=== PATIENT | female | born 1985 | race Hispanic/Latino ===

== ENCOUNTER 2024-04-20 10:49 | Emergency (ER) | payer SELFPAY ==
[2024-04-20 11:04] VITALS: BP 122/76; PULSE 99; RESP 16; TEMP 37.4; O2SAT 99
--- NOTE | 2024-04-20 11:24 | ED.ABDPAIN ---
HPI - Abdominal Pain General Chief Complaint: Urogenital-Female Stated Complaint: Vaginal Problems Time Seen by Provider: 04/20/24 11:24 Source: patient and ostomy rn History of Present Illness HPI narrative: Patient who delivered baby 2 weeks ago in [place], recently moved to this area presents with 2 days of vaginal itching. She denies any recent injury or trauma. She had a vaginal , reports episiotomy that she was told is healing well when she went for her 2 week check. She denies any unusual vaginal discharge. Denies any vaginal bleeding. Denies any pain. Denies any fever, chills, sweats. She voices no other concerns or complaints at this time. Related Data Allergies Allergy/AdvReac Type Severity Reaction Status Date / Time No Known Allergies Allergy Verified 04/20/24 11:12 Review of Systems Review of Systems: All systems reviewed & are unremarkable except as noted in HPI and below Constitutional: Constitutional: Reports no additional constitutional complaints ENT: Reports system reviewed and no additional complaints, except as documented Cardiovascular: Cardiovascular: Reports no additional cardiovascular complaints Respiratory: Respiratory: Reports no additional respiratory complaints Gastrointestinal: Gastrointestinal: Reports no additional gastrointestinal complaints Genitourinary: Genitourinary: Denies abnormal vaginal bleeding and Reports vaginal pruritus Exam Const: General: cooperative, no acute distress, alert and awake Orientation/consciousness: oriented to person, oriented to place and oriented to time HENMT: Head: normal to inspection Resp: Effort & Inspection: normal respiratory effort and able to speak in complete sentences Auscultation: clear to auscultation bilaterally, no crackles, no rales, no rhonchi and no wheezes Cardio: Palpation: normal PMI Rate: regular rate Rhythm: regular rhythm Heart sounds: S1 normal heart sound present and S2 normal heart sound present GI: GI Palp: No abdominal tenderness, Yes Soft to palpation, No Tenderness to palpation present (GI), No Guarding due to palpation present (GI) and No Rigid due to palpation Auscultation: normal bowel sounds Neuro: General: oriented to person, oriented to place and oriented to time Cranial nerves: Yes CN's II-XII intact bilaterally Psych: Appearance: grossly normal Thought process: Normal thought process present Insight: Good insight present (Psych) Judgement: Good judgement present (Psych) Course Course Level of Care: Express Care Visit Vital Signs Vital signs: Vital Signs Temperature 99.4 F 04/20/24 11:04 Pulse Rate 99 04/20/24 11:04 Respiratory Rate 16 04/20/24 11:04 Blood Pressure 122/76 04/20/24 11:04 Pulse Oximetry 99 04/20/24 11:04 Oxygen Delivery Room Air 04/20/24 11:04 Temperature 99.4 F 04/20/24 11:04 Pulse Rate 99 04/20/24 11:04 Respiratory Rate 16 04/20/24 11:04 Blood Pressure 122/76 04/20/24 11:04 Pulse Oximetry 99 04/20/24 11:04 Oxygen Delivery Room Air 04/20/24 11:04 MDM - Abdominal Pain MDM Narrative Medical decision making narrative: Patient declines speculum exam. Normal abdominal exam. Symptoms likely from vaginal yeast infection, will treat as same. Patient advised to follow with primary care provider and tool machinist. Emergency department for new or worse symptoms. Discharge instructions reviewed with patient, as well as provided in writing per nursing staff. The instructions also include specific and strict return/GO TO THE ER as well as f/u information. All questions have been answered, and the patient deny any further questions with discharge and discharge plan. Some parts of this dictation were generated by voice recognition software and may contain typographical and/or grammatical inaccuracies. Differential Diagnosis Differential diagnosis: Likely other (Bacterial vaginosis, vaginal yeast infection, STI) Medical Records Attes
== END 2024-04-20 11:35 | disposition home or self-care (01) ==
PROVIDERS: Emergency Provider Nurse Practitioner Family
DX: O86.19 Other infection of genital tract following delivery (principal); B37.31 Acute candidiasis of vulva and vagina
CPT/HCPCS: 99203; G0463

== ENCOUNTER 2025-03-22 15:29 | Outpatient (CLI) | payer MEDICAID, SELFPAY ==
--- OUTSIDE RECORDS SUMMARY | 2025-03-22 15:33 | XMS_ITS | Encounter Summary ---
Author Organization [facility] Address [address] [place] [address] Care Team Providers Care Material Carrier Name Role Phone None, Provider Primary Care Provider Unavaila ble Encounter Details Date Type Department Care Team (Late st Contact Info) Description 03/14/2025 Orders Only [facility] [place] [address] Eyal Swenson MD [address] [facility] [address] [place] [id number] Social History Tobacco Use Types Packs/Day Years Used Date Smoking Tobacco: Never Assessed Comments Unknown Sex and Gender Information Value Date Recorded Sex Assigned at Female 03/10/2025 3:50 PM CDT Legal Sex Female 3:46 PM CDT Gender Identity Not on file Sexual Orientation Not on file documented as of this encounter Plan of Treatment Not on file documented as of this encounter Visit Diagnoses Not on filedocumented in this encounter Care Teams Material Carrier Relationship Specialty Start Date End Date None, Provider, PCP - General UNKNOWN PHYSICIAN SPECIALTY 03/10/25 documented as of this encounter
--- OUTSIDE RECORDS SUMMARY | 2025-03-22 15:33 | XMS_ITS | Clinical Summary ---
Author Organization [facility] Address [address] [place] [address] Care Team Providers Care Day Haul Youth Supervisor Name Role Phone Unavailable Primary Care Provider Unavailabl e Source Comments [facility],non-owned Affiliates and Associated Physician Practices is amultiple site organization consisting of ambulatory clinics and hospital sitesin [place], [place], [place] and [place]. This disclosure is being madepursuant to the Care Everywhere program and may not contain all information available regarding this patient. Last updated 18.[facility] Social History Tobacco Use Types Packs/Day Years Used Date Smoking Tobacco: Never Assessed Comments Unknown Sex and Gender Information Value Date Recorded Sex Assigned at Not on file Legal Sex Female 3:29 PM CDT Gender Identity Not on file Sexual Orientation Not on file Plan of Treatment Upcoming Encounters Date Type Department Care Team (Late st Contact Info) Description 04/06/2025 9:45 AM CDT Appointment [facility] [address] [place] [address] 04/06/2025 11:15 AM CDT Appointment [facility] [address] [place] [phone] Health Maintenance Due Date Last Done Comments HIV SCREENING 2001 HEPATITIS C SCREENING 07/22/2004 DTAP/TDAP/TD VACCINES (1 - Tdap) 2005 HEPATITIS B VACCINE (1 of 3 - 19+ 3-dose series) 2005 PAP SMEAR 2007 COVID-19 VACCINE ( - 2023-2 5 season) 2024 DEPRESSION SCREENING 09/22/2024 ZOSTER VACCINE (1 of 2) 2036 INFLUENZA VACCINE Completed 08/16/2024 HIB VACCINE Aged Out No longer eligi ble based on patient's age to complete this topic HPV VACCINE Aged Out No longer eligi ble based on patient's age to complete this topic MENINGOCOCCAL (Group B) VACC INE SHARED DECISION-MAKING Aged Out No longer eligibl e based on patient's age to complete this topic MENINGOCOCCAL GROUPS A/C/Y/W VACCINE Aged Out No longer eligible b ased on patient's age to complete this topic PNEUMOCOCCAL VACCINE Aged Out No long er eligible based on patient's age to complete this topic
--- OUTSIDE RECORDS SUMMARY | 2025-03-22 15:33 | XMS_ITS | Clinical Summary ---
Author Organization [facility] Address [facility] [place] [address] Care Team Providers Care Assistant Operator Name Role Phone None, Provider Primary Care Provider Unavaila ble Encounters Date Type Department Care Team Description 03/14/2025 Orders Only [facility] [address] Eyal Swenson MD 03/10/2025 3:55 PM CDT - 03/10/2025 11:59 PM CDT Hospital [facility] [place] [address] Eyal Swenson MD Discharge Disposition: Home or Self Care (Routine Discharge) 03/10/2025 Orders Only [facility] [address] Eyal Swenson MD 03/10/2025 Orders Only [facility] [address] Eyal Swenson MD 03/10/2025 Orders Only [facility] [address] Eyal Swenson MD 03/10/2025 Travel from Last 3 Months Social History Tobacco Use Types Packs/Day Years Used Date Smoking Tobacco: Never Assessed Comments Unknown Sex and Gender Information Value Date Recorded Sex Assigned at Female 03/10/2025 3:50 PM CDT Legal Sex Female 3:46 PM CDT Gender Identity Not on file Sexual Orientation Not on file Plan of Treatment Health Maintenance Due Date Last Done Comments Cervical Cancer Screening Pa p Smear (Age 30 to 64) Every 3 Years 1986 Annual Physical 1989 Hepatitis C 2004 DTaP, Tdap and Td Vaccines ( 1 - Tdap) 2005 Hepatitis B Vaccines (1 of 3 - 19+ 3-dose series) 2005 Cervical Cancer Screening Pa p with HPV Testing (Age 30 to 64) Every 5 Years 2016 Cervical Cancer Screening with HPV 2016 COVID-19 Vaccine (2023-2 5 season) 2024 HPV Vaccines Aged Out No longer eligi ble based on patient's age to complete this topic Meningococcal B Vaccine Aged Out No l onger eligible based on patient's age to complete this topic Meningococcal Vaccine Aged Out No pura sherie eligible based on patient's age to complete this topic Pneumococcal Vaccine: Pediat rics (0 to 5 Years) and At-Risk Patients (6 to 49 Years) Aged Out No longer eligible b ased on patient's age to complete this topic RSV Immunizations Under 20 Months Aged Out No longer eligible based on patient's age to complete this topic Procedures Procedure Name Priority Date/Time Associated Diagnosis Comments QUAD PANEL Routine 03/10/2025 4:22 PM CDT VARICELLA ZOSTER AB IGM Routine 03/10/2025 4:22 PM CDT Encounter for supervision of normal ([facility]) CHORIONIC GONADOTROPIN HCG QL Routine 03/10/2025 4:22 PM CDT Encounter for supervision of normal ([facility]) TEST URINE Routine 03/10/2025 4:16 PM CDT Encounter for supervision of normal ([facility]) from Last 3 Months Results * VARICELLA ZOSTER AB IGM (03/10/2025 4:22 PM CDT) VARICELLA ZOSTER, IGM EIA <=0.90 <=0.90 03/14/2025 2:34 PM CDT [facility] CLARICE LY Comment: < or = 0.90 Negative 0.91 - 1.09 Equivocal > or = 1.10 Positive Results from any one IgM assay should not be used as a sole determinant of a current or recent infection. Because an IgM test can yield false positive results and low levels of IgM antibody may persist for more than 12 months post infection, reliance on a single test result could be misleading. If an acute infection is suspected, consider obtaining a new specimen and submit for both IgG and IgM testing in two or more weeks. Test Performed by [employer], [facility], [address] [place] [address] Haja Weems M.D., Ph.D., Director of Laboratories , [facility] [id number] 03/10/2025 4:22 PM CDT us Eyal Swenson MD LABORATORY Final Resu lt [facility] [address] [place] [id number], [place] [phone] * PREG TEST SERUM (HCG QUALITATIVE) (03/10/2025 4:22 PM CDT) PREG SCREEN-SERUM POSITIVE 03/10/2025 5:30 PM CDT [facility] 03/10/2025 4:22 PM CDT Eyal Swenson MD LABORATORY Final Resu lt [facility] [address] [place] [address], [place] [phone] * TEST URINE (03/10/2025 4:16 PM CDT) URINE HCG TEST DUPLICATE ORDER 03/14/2025 1:09 PM CDT [facility] Comment: CORRECTED ON 03/14 AT 1309: PREVIOUSLY REPORTED POSITIVE VERY DILUTE URINE SPECIMENS MAY NOT CONTAIN CARE GIVER LEVELS OF HCG. IF IS STILL SUSPECTED, A SERUM HCG TEST IS RECOMMENDED. SPECIFIC GRAVITY (U) DUPLICATE ORDER 03/14/2025 1:09 PM CDT [facility] URINE SPECIMEN FROM URETHRA / Unknown 03/10/2025 4:16 PM CDT us Eyal Swenson MD URINE ORDERABLES Edited Re sult - Final [facility] [address] [place] [address], [place] [phone] from Last 3 Months Care Teams Assistant Operator Relationship Specialty Start Date End Date None, Provider, PCP - General UNKNOWN PHYSICIAN SPECIALTY 03/10/25
[2025-03-22 16:21] LABS: Add Urine Microscopic? NO; Appearance Urine Clear (Clear); Glucose Urine UA 3+ mg/dL (Negative); Leukocyte Esterase Ur Negative LEU/UL (Negative); Nitrate Urine Negative (Negative); Specific Grav Ur 1.036 (1.001-1.035)
[2025-03-22 16:28] LABS: Hematocrit 39.4 % (37.0-47.0); Hemoglobin 13.1 g/dL (12.0-15.0); Mean Corpuscular HGB Conc 33.2 g/dl (32-36); Mean Corpuscular Hemoglobin 27.7 pg (26-34); Mean Corpuscular Volume 83.3 fl (80-100); Platelet Count Result 250 k/mm3 (150-375); Red Blood Count 4.73 M/mm3 (4.2-5.4); White Blood Count 7.2 K/mm3 (4.5-10.0)
[2025-03-22 18:27] LABS: Alanine Aminotransferase 16 U/L (6-35); Albumin Level 4.0 g/dL (3.5-5.1); Alkaline Phosphatase 60 U/L (38-126); Anion Gap 10 mmol/L (4-12); Aspartate Amino Transferase 23 U/L (14-36); Bilirubin,Total 0.8 mg/dL (0.2-1.3); Blood Urea Nitrogen 10 mg/dL (7-17); Calcium 9.0 mg/dL (8.4-10.2); Carbon Dioxide 18 mmol/L (22-30); Chloride 107 mmol/L (98-107); Estimated Glomerular Filt Rate > 60; Glucose 130 mg/dL (65-110); Potassium 3.8 mmol/L (3.4-5.0); Sodium 135 mmol/L (137-145); Total Protein 7.0 g/dL (6.3-8.2)
[2025-03-22 18:59] LABS: Hepatitis B Surface Antigen Negative (Negative)
[2025-03-22 19:08] LABS: HIV 1/2 Ab P24 Ag Result Negative (Negative)
[2025-03-22 20:10] LABS: Hemoglobin A1C. 8.8 % (<5.7)
[2025-03-22 20:19] LABS: Syphilis IgG/IgM Antibody Non-Reactive (Nonreactive)
[2025-03-22 20:22] LABS: Thyroid Stimulating Hormone Reflex 1.540 uIU/mL (0.465-4.68)
[2025-03-23 21:43] LABS: Hematocrit 40.0 % (35.0-45.0); Hemoglobin 13.2 g/dL (11.7-15.5); MCH 28.6 pg (27.0-33.0); MCV 86.8 fL (80.0-100.0); RDW 13.3 % (11.0-15.0)
== END 2025-03-22 15:30 | disposition home or self-care (01) ==
LOC: ANHLAB 15:29
PROVIDERS: PCP Obstetrics & Gynecology; Visit Provider Obstetrics & Gynecology
DX: Z34.90 Encounter for supervision of normal pregnancy, unspecified, unspecified trimester (principal); Z3A.00 Weeks of gestation of pregnancy not specified
CPT/HCPCS: 36415; 80053; 81003; 83021; 83036; 84443; 85027; 86593; 86703; 86762; 86787; 86803; 86850; 86900; 86901; 87086; 87340; G0432

== ENCOUNTER 2025-05-10 10:31 | Outpatient (CLI) | payer OTHER, SELFPAY ==
--- OUTSIDE RECORDS SUMMARY | 2025-05-10 11:02 | XMS_ITS | Clinical Summary ---
Author Organization [facility] Address [facility] [place] [address] Care Team Providers Care Platform Operations Director Name Role Phone None, Provider Primary Care Provider Unavaila ble Encounters Date Type Department Care Team Description 03/14/2025 Orders Only [facility] [place] [address] Eyal Swenson MD 03/10/2025 3:55 PM CDT - 03/10/2025 11:59 PM CDT [facility] [place] [address] Eyal Swenson MD Discharge Disposition: Home or Self Care (Routine Discharge) 03/10/2025 Orders Only [facility] [address] Eyal Swenson MD 03/10/2025 Orders Only [facility] [address] Eyal Swenson MD 03/10/2025 Orders Only [facility] [address] Eyal Swenson MD 03/10/2025 Travel from Last [...] of 3 - 19+ 3-dose series) 2005 HPV Vaccines (1 - 3-dose SCD M series) 2013 Cervical Cancer Screening Pa p with HPV Testing (Age 30 to 64) Every 5 Years 2016 Cervical Cancer Screening with HPV 2016 COVID-19 Vaccine (2023-2 5 season) 2024 Meningococcal B Vaccine Aged Out No l [...] PM CDT Encounter for supervision of normal ([facility]) CHORIONIC GONADOTROPIN HCG QL Routine 03/10/2025 4:22 PM CDT Encounter for supervision of normal ([facility]) TEST URINE Routine 03/10/2025 4:16 PM CDT Encounter for supervision of normal ([facility]) from Last 3 Months Results * VARICELLA ZOSTER AB IGM (03/10/2025 4:22 PM CDT) VARICELLA ZOSTER, IGM EIA <=0.90 <=0.90 03/14/2025 2:34 PM CDT [facility] CLARICE RAMIREZ Comment: < or = 0.90 Negative 0.91 [...] two or more weeks. Test Performed by Amrit Perez, [employer], [address] [place] Haja Weems M.D., Ph.D., Director of Laboratories , [place] [id number] 03/10/2025 4:22 PM CDT Eyal Swenson MD LABORATORY Final Resu lt [facility] [address] [place] [address], * (ABNORMAL) QUAD PANEL (03/10/2025 4:22 PM CDT) DATE OF 1982 03/29/2025 8:40 AM CDT [facility] COLLECTION DATE 03/10/2025 2:39 PM CDT [facility] WEIGHT 162 03/29/2025 8:40 AM CDT [facility] ESD DATE OF DELIVERY 08/18/2025 03/29/2025 8:40 AM CDT [facility] RONEN DETERMINED BY L 025 8:40 AM CDT [facility] ETHNICITY H 03/29/2025 8:40 AM CDT [facility] NUMBER OF FETUSES 1 025 8:40 AM CDT [facility] INSULIN DEPENDENT DIABETIC Y 03/29/2025 8:40 AM CDT [facility] REPEAT SPECIMEN N 8:40 AM CDT [facility] HS NEURAL TUBE DEFECT N 03/29/2025 8:40 AM CDT [facility] BRIEF HISTORY NG 03/29/2025 8:40 AM CDT [facility] HISTORY OF DOWN SYNDROME N 03/29/2025 8:40 AM CDT [facility] DONOR AGE OR N 03/29/20 25 8:40 AM CDT [facility] DONOR EGG N 03/29/2025 8:40 AM CDT [facility] CIGARETTE SMOKER N 03/29/20 25 8:40 AM CDT [facility] SERGEY INTERP REPORT 03/21/2025 9:45 PM CDT [facility]-PRICILA GUERRERO Comment: Screen positive for DS # Trisomy 18. Screen negative for open NTD. RISK FOR NTD (OSB) UNAVAILABLE 03/21/2025 9:45 PM CDT [facility] WHIT-PARTHATI LLY AGE RISK DOWN SYNDROME 1:129 03/21/2025 9:45 PM CDT [facility] SHERMAN-PARTHATI LLY SERGEY DOWN SYNDROME RISK >1:10(H) <1:270 03/21/2025 9:45 PM CDT [facility] SHERMAN-CHANTI LLY RISK FOR TRISOMY 18 1:98(H) <1:100 03/21/2025 9:45 PM CDT [facility]ERMAN-PARTHATI LLY AFP SERUM 5.5 ng/mL 03/21/2025 9:45 PM CDT [facility]ERMAN-PARTHATI LLY AFP MOM 0.07 03/21/2025 9:45 PM CDT [facility] SHERMAN-PARTHATI LLY Comment: Reference Range: <2.50 IDD <1.90 TWINS <4.00 TWINS IDD <3.50 TRIPLETS <4.50 ESTRIOL FREE 0.23 ng/mL 03/21/2025 9:45 PM CDT [facility] SHERMAN-CHANTI LLY ESTRIOL MOM 0.08 03/21/2025 9:45 PM CDT [facility] SHERMAN-CHANTI LLY HCG SERUM 62.6 IU/mL 03/21/2025 9:45 PM CDT [facility] SHERMAN-CHANTI LLY HCG MOM 3.82 03/21/2025 9:45 PM CDT [facility] SHERMAN-CHANTI LLY Inhibin A 203 pg/mL 03/21/2025 9:45 PM CDT [facility] SHERMAN-CHANTI LLY INHIBIN A MOM 0.93 03/21/2025 9:45 PM CDT [facility] SHERMAN-CHANTI LLY Comment: RISKS FOR NTDs ARE ONLY CALCULATED FOR GESTATIONAL WEEKS 15.0 to 21.9. THE MoM VALUE IS ALWAYS THE MORE APPROPRIATE NUMBER TO USE WHEN DETERMINING NORMALCY OR ELEVATIONS IN THE MSAFP TEST. The patient is considered to be at increased risk for having a child with Down syndrome. The patient is also at increased risk for having a child with Trisomy 18. Clinical follow-up, including high resolution ultrasound, genetic counseling and consideration of amniocentesis, is recommended. While women 35 years or older at the time of delivery have the highest risk of having a child with Down syndrome, current [place] [employer] guidelines (Heel Seat Flap Stapler 2007 v109 [phone]) recommend that maternal age alone no longer be used as a cut-off to determine who is offered screening versus who is offered invasive testing. Genetic counseling may be considered. This is a screening test, not a diagnostic test. This risk assessment is based on demographic data provided by the ordering physician. Please notify the laboratory promptly if any data are incorrect. It has been observed that patients who smoke cigarettes during may have a slightly increased risk of having a false positive SERGEY screen for Down Syndrome or trisomy 18. It has been observed that patients whose is the result of IVF may have a slightly increased risk of having a false positive SERGEY screen for Down syndrome or trisomy 18. If you have questions concerning this report: For Clinical Consultation call [phone] ([phone]) For Technical/Recalculations call , ext. [phone]; FAX [phone] Interpretive Cutoffs Screen Positive for Open NTD: > or = 2.50 adjusted MOM > or = 1.90 adjusted MOM for insulin- dependent Diabetics > or = 4.00 adjusted MOM for twins > or = 3.50 adjusted MOM for twins insulin- dependent diabetics > or = 4.50 adjusted MOM for triplets Screen Positive for Down Syndrome: SERGEY Down Syndrome Risk that equals or exceeds 1 in 270 Screen Positive for Trisomy 18: SERGEY Trisomy 18 Risk that equals or exceeds 1 in 100 For additional information, please refer to http://education.Enlighted/faq/FAQ97 (This link is being provided for informational/educational purposes only.) CALCULATED GESTATIONAL AGE 22.6 03/21/2025 9:45 PM CDT [facility] LYLA GUERRERO RESULT OF IVF N 03/21/2025 9:45 PM CDT [facility] LLYA GUERRERO Comment: Test performed by [facility] [place] [id number] Auto Headlight Mechanic: Maureen Ontiveros MD,PHD,PHUC Test Reported by THYME [place], [employer] [place], [address] [place], [place] Haja Weems M.D., Ph.D., Director of Laboratories , [facility] [id number] 03/10/2025 4:22 PM CDT Eyal Swenson MD LABORATORY Final Resu lt [facility] [address] [place] [address], [place] [facility] [address] [place] [address], [place] [phone] * PREG TEST SERUM (HCG QUALITATIVE) (03/10/2025 4:22 PM CDT) PREG SCREEN-SERUM POSITIVE 03/10/2025 5:30 PM CDT [facility] 03/10/2025 4:22 PM CDT Eyal Swenson MD LABORATORY Final Resu lt [facility] [address] [place] [address], [place] [phone] * TEST URINE (03/10/2025 4:16 PM CDT) URINE HCG TEST DUPLICATE ORDER 03/14/2025 1:09 PM CDT [facility] Comment: CORRECTED ON 03/14 AT 1309: PREVIOUSLY REPORTED POSITIVE VERY DILUTE URINE SPECIMENS MAY NOT CONTAIN PROVIDER RELATIONS MANAGER LEVELS OF HCG. IF IS STILL SUSPECTED, A SERUM HCG TEST IS RECOMMENDED. SPECIFIC GRAVITY (U) DUPLICATE ORDER 03/14/2025 1:09 PM CDT [facility] URINE SPECIMEN FROM URETHRA / Unknown 03/10/2025 4:16 PM CDT Eyal Swenson MD URINE ORDERABLES Edited Re sult - Final [facility] [address] [place] [address], [place] [phone] from Last 3 Months Insurance MEDICAID Care Teams Platform Operations Director Relationship Specialty Start Date End Date None, Provider, PCP - General UNKNOWN PHYSICIAN SPECIALTY 03/10/25
--- OUTSIDE RECORDS SUMMARY | 2025-05-10 11:02 | XMS_ITS | Encounter Summary ---
Author Organization [facility] Address [facility] [place] [address] Care Team Providers Care Motorcycle Subassembler Name Role Phone None, Provider Primary Care Provider Unavaila ble Encounter Details Date Type Department Care Team (Late st Contact Info) Description 03/14/2025 Orders Only [facility] [place] [address] Eyal Swenson MD Social History Tobacco Use Types Packs/Day Years [...] on filedocumented in this encounter Care Teams Motorcycle Subassembler Relationship Specialty Start Date End Date None, Provider, PCP - General UNKNOWN PHYSICIAN SPECIALTY 03/10/25 documented as of this encounter
--- OUTSIDE RECORDS SUMMARY | 2025-05-10 11:02 | XMS_ITS | Clinical Summary ---
Author Organization [facility] Address [address] [place] [address] Care Team Providers Care Chief Operations Officer Name Role Phone Unavailable Primary Care Provider Unavailabl e Source Comments [facility],non-owned Affiliates and Associated Physician Practices is amultiple site organization consisting of ambulatory clinics and hospital sitesin [place], [place], [place] and [place]. This disclosure is being madepursuant to the Care Everywhere program and may not contain all information available regarding this patient. Last updated 18.[facility] [employer] Allergies No known active allergies Medications * Be aware that medications may not be up to date on this document. Alwaysverify current medications with the patient. Vit-DSS-Fe Fum-FA ( vitamin with iron) tabletIndicati ons: Take 1 (one) tablet by mouth once daily Reasons: Active insulin glargine (Lantus/Semgle e) 100 units/mL penIndications :Gestational Diabetes Inject 10 (ten) Units subcutaneously twice daily, before breakfast & at bedtime. Inject 10 units AM and 10 units HS Reasons: Diabetes During Active aspirin EC (Ecotrin) 81 MG tablet Take 1 (one) tablet by mouth once daily Active Active Problems Problem Noted Date Diagnosed Date Type 2 diabetes mellitus aff ecting in second trimester, antepartum 04/06/2025 Advanced maternal age in multigravida, second tr imester 04/06/2025 Uncertain dates, antepartum, second trimester Estimated Date of Delivery Comme nts Yes 09/21/2025 Based on Ultraso und Encounters Date Type Department Care Team Description 04/27/2025 2:30 PM CDT - 04/27/2025 11:59 PM CDT Hospital Encounter [facility] [address] [place] [address] Kaden Mathews MD Discharge Disposition: Home or Self Care 04/06/2025 9:57 AM CDT - 04/06/2025 11:59 PM CDT Hospital Encounter [facility] [address] [place] [phone] Vannessa Chapin MD Discharge Disposition: Home or Self Care 04/06/2025 9:45 AM CDT - 04/06/2025 9:56 AM CDT Hospital Encounter [facility] [address] [place] [phone] Vannessa Chapin MD Discharge Disposition: Home or Self Care 03/30/2025 Telephone [facility] [address] [place] [address] [phone] Shivani Gutierrez RN Question (Damian from Dr. Sandoval's office called to see if we could draw NIPT on patient at her appt next week on 04/06 due to abnormal QUAD screen on AMA patient using wrong dates. ) from Last 3 Months Family History Medical History Relation Name Comments Diabetes - Type 2 Mother Relation Name Status Comments Maternal Grandfather Maternal Grandmother Mother Paternal Grandfather Paternal Grandmother Social History Tobacco Use Types Packs/Day Years Used Date Smoking Tobacco: Never Smokeless Tobacco: Never Tobacco Cessation:Counseling Given: Not Answered Alcohol Use Standard Drinks/Week Comments Not Currently 0 (1 standard drink = 0.6 oz pur e alcohol) Estimated Date of Delivery Comme nts Yes 09/21/2025 Based on Ultraso und Sex and Gender Information Value Date Recorded Sex Assigned at Not on file Legal Sex Female 3:29 PM CDT Gender Identity Not on file Sexual Orientation Not on file Last Filed Vital Signs Vital Sign Reading Time Taken Comments Blood Pressure 102/65 04/27/2025 2:54 PM CDT Pulse 78 04/27/2025 2:54 PM CDT Temperature - - Respiratory Rate - - Oxygen Saturation - - Inhaled Oxygen Concentration - - Weight 76.7 kg (169 lb) 04/27/2025 2:54 PM CDT Height 165.1 cm (5' 5) 04/27/2025 2:54 PM CDT Body Mass Index 28.12 04/27/2025 2:54 PM CDT Plan of Treatment Upcoming Encounters Date Type Department Care Team (Late st Contact Info) Description 05/25/2025 1:45 PM CDT Appointment [facility] [address] [place], [place] [id number] Health Maintenance Due Date Last Done Comments HIV SCREENING 2001 HEPATITIS C SCREENING 07/22/2004 DTAP/TDAP/TD VACCINES (1 - Tdap) 2005 HEPATITIS B VACCINE (1 of 3 - 19+ 3-dose series) 2005 PAP SMEAR 2007 HPV VACCINE (1 - 3-dose SCDM series) 2013 COVID-19 VACCINE (1 - 2023-2 5 season) 2024 DEPRESSION SCREENING 09/22/2024 INFLUENZA VACCINE (#1) 2025 08/16/2024 OB-TDAP CURRENT 06/22/20252023, 10/24/2023 Respiratory Syncytial Virus (RSV) Vaccine Pt: or over 60 yrs (1 - Risk 1-dose series) 2025 ZOSTER VACCINE (1 of 2) 2036 HIB VACCINE Aged Out No longer eligi ble based on patient's age to complete this topic MENINGOCOCCAL (Group B) VACCINE SHARED DECISION-MAKING Aged Out No longer eligible based on patient's age to complete this topic MENINGOCOCCAL GROUPS A/C/Y/W VACCINE Aged Out No longer eligible b ased on patient's age to complete this topic PNEUMOCOCCAL VACCINE Aged Out No long er eligible based on patient's age to complete this topic Procedures Procedure Name Priority Date/Time Associated Diagnosis Comments SONOGRAM - COMPLETE Routine 04/27/2025 3 :46 PM CDT Pre-existing type 2 diabetes mellitus during in second trimester (HCC) Encounter for anatomic survey (HCC) Multigravida of advanced maternal age in second trimester (HCC) Obesity affecting in second trimester, unspecified obesity type (HCC) SONOGRAM - COMPLETE Routine 04/06/2025 1 0:39 AM CDT Pre-existing type 2 diabetes mellitus during in second trimester ([facility]) Encounter for anatomic survey ([facility]) Multigravida of advanced maternal age in second trimester ([facility]) from Last 3 Months Results * Sonogram - Complete (04/27/2025 3:46 PM CDT) Only the most recent of2 resultswithin the time period is included. Linked Results Indication ======== screening for uncertain dates, unknown LMP Pre-existing type 2 diabetes mellitus, in Advanced maternal age (AMA), multigravida History ====== OB History 2. Para 1 [id number] 1. live 2023. Gest. age 37 w + 0 d. Weight 2,722 g. Sex of child: male. Details: Vaginal delivery Maternal Assessment Physical Exam Height 165 cm, 5 ft 5 in. Weight 77 kg, 169 lb. Initial weight 73 kg, 162 lb. BMI 28.12 kg/m . Initial BMI 26.96 kg/m . Weight gain 3 kg, 7 lb Method ====== Transabdominal and transvaginal ultrasound examination. View: Suboptimal view: limited by activity ========= Sanders . Number of fetuses: 1 Dating ====== Date Details Gest. age RONEN Stated RONEN 19 w + 0 d 09/21/2025 U/S 04/27/2025 based upon AC, BPD, Femur, HC 19 w + 1 d 09/20/2025 Assigned dating based on ultrasound (AC, BPD, Femur, HC), selected on 04/06/2025 19 w + 0 d 09/21/2025 General Evaluation Cardiac activity present. FHR 140 bpm. Presentation: variable Placenta: Placental site: right lateral; posterior. No previa seen Umbilical cord: Cord vessels: 3 vessel cord. Insertion site: normal insertion Amniotic fluid: Amount of AF: normal. MVP 5.9 cm Biometry BPD 42.0 mm 18w 5d 38% Hadlock HC 157.6 mm 18w 5d 26% Hadlock Cerebellum tr 18.9 mm 46% [place] Nuchal fold 4.0 mm AC 146.1 mm 19w 6d 75% Hadlock Femur 29.3 mm 19w 0d 44% Hadlock Humerus 28.0 mm 19w 0d 50% Cher HC / AC 1.08 -/- 5% Hadlock Weight Calculation: EFW 290 g 68% Hadlock EFW (lb,oz) 0 lb 10 oz EFW by Hadlock ([id number]-[id number]-FL) Head / Face / Neck Biometry: CM 3.0 mm 5% Nicolaides appropriate Growth Overview Exam date GA BPD (mm) HC (mm) AC (mm) FL (mm) HL (mm) EFW (g) 04/06/2025 16w 0d 33.1 60% 120 33% 100 53% 19.2 33% 18.7 30% 138 34% 04/27/2025 19w 0d 42 38% 157.6 26% 146.1 75% 29.3 44% 28 50% 290 68% Anatomy The following structures appear normal: Head / Neck Cranium. Lateral ventricles. Choroid plexus. Midline falx. Cavum septi pellucidi. Cerebellum. Cisterna magna. Thalami. Nuchal fold. Face Profile. Nasal bone. Orbits. Heart / Thorax Situs. Aortic arch view. Bicaval view. Abdomen Cord insertion. Stomach. Kidneys. Bladder. Bowel. Genitals. Spine Cervical spine. Thoracic spine. Lumbar spine. Sacral spine. Extremities / Skeleton Arms. Hands. Legs. Feet. The following structures could not be adequately visualized: Face Lips. Nose. Heart / Thorax 4-chamber view. RVOT view. LVOT view. 3-vessel view. 9-czetkk-oexhyoi view. Ductal arch view. Great vessels. Right lung. Left lung. Diaphragm. sex: male. Maternal Structures Cervix reassuring Approach - Transvaginal: Cervical length 5.08 cm Funneling absent Right Ovary Normal Left Ovary Normal Impression ========= Single live intrauterine at 19w 0d in variable presentation The RONEN is 09/21/2025 Fetus measures 19w 1d which is appropriate for established gestational age (EFW 68%, AC 75%) The amniotic fluid volume appears normal Transvaginal cervical length appears reassuring measuring 5.08 cm No major malformations or aneuploidy markers were seen within the limitations of ultrasound. However, the anatomic survey is incomplete. Comment ======== ultrasound alone cannot detect all structural, genetic, or functional , placental, or maternal abnormalities Follow-up ======== Follow up ultrasound in 5 weeks for growth and to complete anatomic survey Coding ====== Diagnoses O24.112: Pre-existing type 2 diabetes mellitus, in Z36.87: Encounter for screening for uncertain dates Procedures 67602: US Preg Uterus Detailed 04053: US Preg Uterus Transvaginal [facility] [employer] PACS Anatomical Region Laterality Modality Other 04/27/2025 3:46 PM CDT Chance Cardenas MD [facility] ORDERABLES Edited Result - Final from Last 3 Months Insurance [address] [place] [id number] MEDICAID [employer] [place]
[2025-05-10 11:54] LABS: Hematocrit 39.1 % (37.0-47.0); Hemoglobin 12.9 g/dL (12.0-15.0); Mean Corpuscular HGB Conc 33.0 g/dl (32-36); Mean Corpuscular Hemoglobin 28.3 pg (26-34); Mean Corpuscular Volume 85.7 fl (80-100); Platelet Count Result 233 k/mm3 (150-375); Red Blood Count 4.56 M/mm3 (4.2-5.4); White Blood Count 6.5 K/mm3 (4.5-10.0)
[2025-05-10 12:00] LABS: Hemoglobin A1C 7.0 % (<5.7)
[2025-05-10 12:13] LABS: Add Urine Microscopic? YES; Alanine Aminotransferase 15 U/L (6-35); Albumin Level 3.9 g/dL (3.5-5.1); Alkaline Phosphatase 60 U/L (38-126); Anion Gap 7 mmol/L (4-12); Appearance Urine Clear (Clear); Aspartate Amino Transferase 21 U/L (14-36); Bilirubin,Total 0.7 mg/dL (0.2-1.3); Blood Urea Nitrogen 7 mg/dL (7-17); Calcium 8.7 mg/dL (8.4-10.2); Carbon Dioxide 22 mmol/L (22-30); Chloride 106 mmol/L (98-107); Estimated Glomerular Filt Rate > 60; Glucose 111 mg/dL (65-110); Glucose Urine UA Trace mg/dL (Negative); Leukocyte Esterase Ur Trace LEU/UL (Negative); Nitrate Urine Negative (Negative); Non Pathogenic Casts 0-2; Potassium 4.0 mmol/L (3.4-5.0); Sodium 135 mmol/L (137-145); Specific Grav Ur 1.026 (1.001-1.035); Total Protein 7.0 g/dL (6.3-8.2)
[2025-05-10 12:49] LABS: Thyroid Stimulating Hormone 2.220 uIU/mL (0.465-4.680)
[2025-05-10 12:50] LABS: HIV 1/2 Ab P24 Ag Result Negative (Negative)
[2025-05-10 13:44] LABS: Syphilis IgG/IgM Antibody Non-Reactive (Nonreactive)
[2025-05-10 21:37] LABS: Hepatitis B Surface Antigen Negative (Negative)
[2025-05-11 14:08] LABS: Varicella-Zoster Ab, IgG Non Reactive (Non Reactive); Varicella-Zoster Ab, IgM <0.91 index (0.00-0.90)
== END 2025-05-10 10:32 | disposition home or self-care (01) ==
PROVIDERS: Visit Provider Obstetrics & Gynecology
DX: Z34.90 Encounter for supervision of normal pregnancy, unspecified, unspecified trimester (principal)
CPT/HCPCS: 36415; 80053; 81001; 83036; 84443; 85027; 86593; 86703; 86762; 86787; 86803; 86850; 86900; 86901; 87340; G0432

== ENCOUNTER 2025-07-27 13:43 | Outpatient (RCR) | payer OTHER, SELFPAY ==
[2025-07-27 14:59] VITALS: BP 102/56; PULSE 89
== END 2025-09-10 11:36 | disposition other institution (70) ==
LOC: ANHOBOP 13:43
PROVIDERS: Visit Provider Obstetrics & Gynecology
DX: O24.419 Gestational diabetes mellitus in pregnancy, unspecified control (principal); Z3A.32 32 weeks gestation of pregnancy
CPT/HCPCS: 59025

== ENCOUNTER 2025-09-07 16:55 | Inpatient (IN) | payer OTHER, SELFPAY ==
--- OUTSIDE RECORDS SUMMARY | 2025-09-06 14:30 | XMS_ITS | Encounter Summary ---
Author Organization [facility] Address [facility] [place] [address] Care Team Providers Care Male Impersonator Name Role Phone Unavailable Primary Care Provider Unavailabl e Reason for Referral * (Routine) - Open Specialty Diagnoses / Procedures Referred By Fred t Referred To Contact Diagnoses Type 2 diabetes mellitus affecting in second trimester, antepartum (HCC) Advanced maternal age in multigravida, second trimester (HCC) Obesity affecting in second trimester, unspecified obesity type (HCC) Encounter for other screening follow-up (HCC) Procedures Non-Stress Test Chance Infante MD [address] [facility] [address] [place] [id number] Phone: tel: fax: Referral ID Status Reason Start Date Expiration Date Visits Re quested Visits Authorized [id number] Open 07/18/2025 07/18/2026 5 5 VAN CDL TRUCK DRIVER * (Routine) - Open Specialty Diagnoses / Procedures Referred By Fred bean Referred To Contact Diagnoses Type 2 diabetes mellitus affecting in second trimester, antepartum (HCC) Advanced maternal age in multigravida, second trimester (HCC) Obesity affecting in second trimester, unspecified obesity type (HCC) Encounter for ultrasound to assess growth (HCC) Procedures Sonogram - Complete Chance Infante MD [address] [facility] [address] [address] Phone: tel: fax: Referral ID Status Reason Start Date Expiration Date Visits Re quested Visits Authorized [id number] Open 07/12/2025 07/12/2026 1 1 VAN CDL TRUCK DRIVER Reason for Visit * Reason Comments Ultrasound Biophysical Profile Non-stress Test * (Routine) - Open Specialty Diagnoses / Procedures Referred By Contac t Referred To Contact Diagnoses Type 2 diabetes mellitus affecting in second trimester, antepartum (HCC) Advanced maternal age in multigravida, second trimester (HCC) Obesity affecting in second trimester, unspecified obesity type (HCC) Encounter for other screening follow-up (HCC) Procedures Non-Stress Test Chance Infante MD [address] [facility] [address] [facility] [address] [place] [address] Phone: tel: fax: Referral ID Status Reason Start Date Expiration Date Visits Re quested Visits Authorized [id number] Open 07/18/2025 07/18/2026 5 5 Encounter Details Date Type Department Care Team (Late st Contact Info) Description 09/06/2025 2:30 PM OTR VAN CDL TRUCK DRIVER - 09/06/2025 11:59 PM OTR VAN CDL TRUCK DRIVER Hospital Encounter [facility] Maternal & Care [address] [place] [address] Jai Schuler MD [address] [facility] [address] [place] [address] Discharge Disposition: Home or Self Care Social History Tobacco Use Types Packs/Day Years Used Date Smoking Tobacco: Never Smokeless Tobacco: Never Alcohol Use Standard Drinks/Week Comments Not Currently 0 (1 standard drink = 0.6 oz pur e alcohol) Estimated Date of Delivery Comme nts Yes 09/21/2025 Based on Ultraso und Sex and Gender Information Value Date Recorded Sex Assigned at Not on file Legal Sex Female 3:29 PM CDT Gender Identity Not on file Sexual Orientation Not on file documented as of this encounter Last Filed Vital Signs Vital Sign Reading Time Taken Comments Blood Pressure 104/70 09/06/2025 3:04 PM OTR VAN CDL TRUCK DRIVER Pulse 90 09/06/2025 3:04 PM OTR VAN CDL TRUCK DRIVER Temperature - - Respiratory Rate - - Oxygen Saturation - - Inhaled Oxygen Concentration - - Weight - - Height - - Body Mass Index - - documented in this encounter Medications at Time of Discharge aspirin EC (Ecotrin) 81 MG tablet Take 1 (one) tablet by mouth once daily blood glucose (OneTouch Verio) test stripIndications :Type 2 diabetes mellitus affecting in second trimester, antepartum ([facility]) Use 1 (one) strip 4 times daily 100 strip 5 06/22/2025 Continuous Glucose Sensor (Dexcom G7 Sensor) MISCIndications: Type 2 diabetes mellitus affecting in second trimester, antepartum ([facility]) Use 1 Each Continuous for 10 days 3 Each 3 08/10/2025 6 Insulin Pen Needle 32G X 4 MM MISCIndications: Type 2 diabetes mellitus affecting in second trimester, antepartum ([facility]) Use 1 Each 5 times daily 100 Each 5 08/10/2025 Lancets (ONETOUCH DELICA PLUS 33G EXTRA FINE LANCET)Indicatio ns:Type 2 diabetes mellitus affecting in second trimester, antepartum ([facility]) Use 1 Each 4 times daily To check blood glucose 4 times daily during 100 Each 5 06/22/2025 Vit-DSS-Fe Fum-FA ( vitamin with iron) tabletIndication s: Take 1 (one) tablet by mouth once daily Reasons: insulin glargine (Lantus/Semglee) 100 units/mL penIndications:T ype 2 diabetes mellitus affecting in second trimester, antepartum ([facility]) Prime needle with 2 units waste, then inject 32 units every morning and 68 units every night. Increase dose as directed due to increasing insulin requirements during . Max total daily dose of 150 units. 45 mL 3 08/30/2025 5 insulin lispro (HumaLOG;ADMelog ) 100 UNIT/ML penIndications:T ype 2 diabetes mellitus affecting in second trimester, antepartum ([facility]) Prime needle with 2 units waste, then inject 4 units with breakfast, 6 units with lunch, and 8 units with dinner. Increase doses as directed due to increasing insulin requirements during . Max total daily dose of 50 units. 15 mL 2 08/30/2025 5 documented as of this encounter Progress Notes * Shivani Gutierrez RN - 09/06/2025 3:06 PM CST Name: Joana Jiménez Date of : 1985 Today's Date: 09/06/2025 37w6d NST RESULTS (ROLAND) OBJECTIVE FINDINGS , Pulse: 90, , BP: 104/70 NST Indication(s): Gestational diabetes Uterine Irritability: Yes Contractions: Irregular Frequency: x2 Duration (sec) Range: 50-100 Perceived Intensity: Mild OBJECTIVE FINDINGS Movement: Present Monitoring Mode: External Baseline: 130 BPM Variability: Moderate Decelerations: None Accelerations: Yes OTHER INFORMATION Patient here with daughter and son for BPP and NST today. Patient reports positive movement. Denies leakage of fluid, vaginal bleeding. Reports occasional cramping and contractions. Denies headaches, RUQ pain and blurred vision. Patient has no concerns. 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 Shivani Gutierrez RN VAN CDL TRUCK DRIVER documented in this encounter Plan of Treatment Upcoming Encounters Date Type Department Care Team (Late st Contact Info) Description 09/09/2025 1:45 PM OTR VAN CDL TRUCK DRIVER Hospital Encounter [facility] [address] [place] [phone] Elizabeth Abarca MD [facility] [address] 09/12/2025 1:00 PM OTR VAN CDL TRUCK DRIVER Hospital Encounter [facility] [address] [place] [address] 09/16/2025 1:45 PM OTR VAN CDL TRUCK DRIVER Hospital Encounter [facility] [address] [place] [address] 09/19/2025 1:00 PM OTR VAN CDL TRUCK DRIVER Hospital Encounter [facility] [address] [place] [phone] Scheduled Orders Name Type Priority Associated Diagnoses Orde r Schedule Non-Stress Test MATRNL MED Routine complicated by pre-existing type 2 diabetes in third trimester (HCC) Advanced maternal age in multigravida, third trimester (HCC) Encounter for other screening follow-up ([facility]) 1 Occurrences starting 09/06/2025 until 09/06/2025 documented as of this encounter Procedures Procedure Name Priority Date/Time Associated Diagnosis Comments SONOGRAM - COMPLETE Routine 09/06/2025 2 :50 PM OTR VAN CDL TRUCK DRIVER complicated by pre-existing type 2 diabetes in third trimester (HCC) Advanced maternal age in multigravida, third trimester ([facility]) Encounter for ultrasound to assess growth ([facility]) documented in this encounter Results * Sonogram - Complete (09/06/2025 2:50 PM OTR VAN CDL TRUCK DRIVER) Linked Results Indication ======== Supervision of high risk Pre-existing type 2 diabetes mellitus, in Advanced maternal age (AMA), multigravida Macrosomia / large for dates Short interval History ====== OB History 2. Para 1 [id number] 1. live 2023. Gest. age 37 w + 0 d. Weight 2,722 g. Sex of child: male. Details: Lab Tests Test Date Result NIPT Drawn today Maternal Assessment Physical Exam Height 165 cm, 5 ft 5 in. Initial weight 73 kg, 162 lb. Initial BMI 26.96 kg/m Method ====== Transabdominal ultrasound examination. View: Sufficient ========= Limited by position and late gestational age. Number of fetuses: 1 Dating ====== Date Details Gest. age RONEN Stated RONEN 37 w + 6 d 09/21/2025 Assigned dating based on ultrasound (AC, BPD, Femur, HC), selected on 04/06/2025 37 w + 6 d 09/21/2025 General Evaluation Cardiac activity present. FHR 132 bpm. Presentation: cephalic Placenta: Placental site: anterior Amniotic Fluid Assessment ==== Amount of AF: normal MVP 6.4 cm. CORI 22.3 cm. Q1 4.1 cm, Q2 6.1 cm, Q3 5.6 cm, Q4 6.4 cm Biophysical Profile 2: breathing movements 2: Gross body movements 2: tone 2: Amniotic fluid volume NST: reactive 07/01 Biophysical profile score Non Stress Test NST interpretation: reactive. Baseline FHR 130 bpm. Baseline variability: moderate. Accelerations: present. Decelerations: absent. Uterine activity: absent. Acoustic stimulation: no Biometry BPD 93.4 mm 38w 0d 76% Hadlock HC 337.3 mm 38w 5d 49% Hadlock AC 376.5 mm 41w 4d >99% Hadlock Femur 77.7 mm 39w 5d 90% Hadlock HC / AC 0.90 Weight Calculation: EFW 4,065 g 98% Hadlock EFW (lb,oz) 8 lb 15 oz EFW by Hadlock (VFE-DD-AA-FL) accelerated Growth Overview Exam date GA BPD (mm) HC (mm) AC (mm) FL (mm) HL (mm) EFW (g) 04/06/2025 16w 0d 33.1 60% 120 33% 100 53% 19.2 33% 18.7 30% 138 34% 04/27/2025 19w 0d 42 38% 157.6 26% 146.1 75% 29.3 44% 28 50% 290 68% 05/25/2025 23w 0d 53.3 18% 203 16% 186.6 56% 40.6 43% 36.8 35% 569 51% 06/22/2025 27w 0d 68.5 58% 251.6 32% 241.5 83% 50.2 34% 45.5 42% 1125 69% 07/20/2025 31w 0d 79.6 69% 296.6 64% 287.3 90% 61.3 59% 53.2 53% 1967 82% 08/15/2025 34w 5d 87.3 67% 333 90% 360.5 >99% 70.2 75% 58.5 46% 3450 >99% 09/06/2025 37w 6d 93.4 76% 337.3 49% 376.5 >99% 77.7 90% 4065 98% Anatomy The following structures appear normal: Abdomen Stomach. Kidneys. Bladder. sex: male. Impression ========= Single, live, intrauterine at 37w 6d The growth is accelerated. The amniotic fluid volume is normal. The biophysical profile is 10/10. Comment ======== ultrasound alone cannot detect all structural, genetic, or functional , placental, or maternal abnormalities Follow-up ======== Continue weekly BPP with 2x weekly NST MOTOR VEHICLE INSPECTOR and Diabetic Education appointment with M tomorrow, 09/07 Coding ====== Diagnoses O24.113: Pre-existing type 2 diabetes mellitus, in Z36.2: Encounter for other screening follow-up O09.523: Supervision of elderly multigravida O09.299: Supervision of with other poor reproductive or obstetric history O36.63X0: Maternal care for excessive growth Procedures 44566: [place] [address]: Biophysical Profile W NST [employer] PACS Anatomical Region Laterality Modality Other 09/06/2025 2:50 PM OTR VAN CDL TRUCK DRIVER Chance Cardenas MD [facility] ORDERABLES Edited Result - Final documented in this encounter Visit Diagnoses Diagnosis complicated by pre-existing type 2 diabetes in third trimester (HCC)- Primary Supervision of high-risk of elderly multigravida, third trimester (HCC) Encounter for other screening follow-up (HCC) 37 weeks gestation of (HCC) state, incidental Encounter for ultrasound to assess growth (HCC) Advanced maternal age in multigravida, third trimester (HCC) Obesity affecting in third trimester, unspecified obesity type (HCC) Excessive growth affecting management of in third trimester, single or unspecified fetus (HCC) complicated by pre-existing type 2 diabetes in third trimester (HCC)- Primary 37 weeks gestation of ([facility]) state, incidental Supervision of high-risk of elderly multigravida, third trimester ([facility]) Encounter for other screening follow-up ([facility]) Type 2 diabetes mellitus affecting in second trimester, antepartum (HCC)- Primary Advanced maternal age in multigravida, second trimester ([facility]) Supervision of high-risk of elderly multigravida, third trimester ([facility]) Encounter for other screening follow-up ([facility]) 37 weeks gestation of (HCC) state, incidental Type 2 diabetes mellitus affecting in third trimester, antepartum ([facility])- Primary Supervision of high-risk of elderly multigravida, third trimester ([facility]) Encounter for other screening follow-up ([facility]) Type 2 diabetes mellitus affecting in second trimester, antepartum ([facility])- Primary Supervision of high-risk of elderly multigravida, third trimester ([facility]) Encounter for other screening follow-up ([facility]) 39 weeks gestation of ([facility]) state, incidental documented in this encounter
[2025-09-07] VITALS (55 sets, daily range): BP systolic 96–155; BP diastolic 55–100; PULSE 75–99; TEMP 36.8–36.9; O2SAT 95–100; BMI 33.5
--- OUTSIDE RECORDS SUMMARY | 2025-09-07 13:00 | XMS_ITS | Encounter Summary ---
Author Organization [facility] Address [facility] [place] [address] Care Team Providers Care Corporate Trust Officer Name Role Phone Unavailable Primary Care Provider Unavailabl e Reason for Referral * Consultation (Routine) - Closed Specialty Diagnoses / Procedures Referred By Contac t Referred To Contact Maternal Medicine Diagnoses Pre-existing type 2 diabetes mellitus during in second trimester (HCC) Encounter for anatomic survey (HCC) Multigravida of advanced maternal age in second trimester ([facility]) Obesity affecting in second trimester, unspecified obesity type ([facility]) Chance Infante MD [address] [place] [address] Phone: tel: fax: Referral ID Status Reason Start Date Expiration Date V isits Requested Visits Authorized [id number] Closed Specialty Services Required 03/30/2025 03/30/2026 3 3 [employer]ATE [employer] Reason for Visit * Reason Comments Follow-up Maternal Medicine Diabetes * Evaluate & Treat (Routine) - Authorized Specialty Diagnoses / Procedures Referred By Contac t Referred To Contact Maternal Medicine Diagnoses AMA (advanced maternal age) multigravida 35+ (HCC) Type 2 diabetes mellitus complicating , antepartum (HCC) Late care ([facility]) Procedures NM FULL ROUT OBSTE CARE,VAGINAL DELIV Eyal Swenson MD [address] [address] Phone: tel: fax: [facility] [address] [place] [address] Phone: tel: fax: Referral ID Status Reason Start Date Expiration Date V isits Requested Visits Authorized [id number] Authorized 04/25/2025 10/22/2025 18 18 Encounter Details Date Type Department Care Team (Late st Contact Info) Description 09/07/2025 1:00 PM SUPERVISOR PLATE [employer] Hospital Encounter [facility] [address] [id number] Vannessa Chapin MD [address] [facility] [address] [address] Social History Tobacco Use Types Packs/Day Years [...] Sign Reading Time Taken Comments Blood Pressure 111/73 09/07/2025 1:24 PM SUPERVISOR [employer]ATE [employer] Pulse 95 09/07/2025 1:24 PM [employer]PERVISOR [employer]ATE [employer] Temperature - - Respiratory Rate - - Oxygen Saturation - - Inhaled Oxygen Concentration - - Weight 85 kg (187 lb 6.4 oz) 09/07/2025 1:24 PM [employer]OR [employer]ATE [employer] Height - - Body Mass Index 31.18 04/27/2025 2:54 PM CDT documented in this encounter Progress Notes * Theresa Fritz RN - 09/07/2025 3:11 PM CST Pt here today for diabetic and [employer] follow up. She reports feeling good movement. Reports occasional contractions. Denies leakage of fluid/bleeding. Denies headaches, visual changes, edema, and epigastric pain. Denies pain or urinary s/s today. She remains on Dexcom for blood sugar monitoring. She reports that she is taking Lantus and Humalog . Per CDE these are old recommendations and not current prescribed doses. Pt was seen byAbby today. Please see her note for further plan for diabetic management. Pt was seen by Abel Ramires NP for follow up. Please see her note for further POC. Pt was recommended to be delivered in the next 2 days. Please see [employer] note. Pt here today with daughter and son. She denies further questions or concerns for her care today. [employer] * Chana Khanna RN - 09/07/2025 2:07 PM CST Images from the original note were not included. Justin Hansen is a 40 year old 38w0d Estimated Date of Delivery: 09/21/25. Pt with pre-gestational DM2 is in clinic for f/u visit today, accompanied by daughter and son. LAMP Gibraltarian interpretor offered, however, pt declined, requesting her daughter (fluent in [place]ese and Gibraltarian) be utilized as interpretor. She is currently prescribed: Lantus 32/68 and Humalog ; Pt taking differently--taking Lantus 18/60 and Humalog Date last reviewed: 08/30/25 remote review PMH: DM2, AMA growth: Date: 09/06/25 AC: >99% Weight: 98% CORI: WNL Monitoring and Glycemic Control: Dexcom G7 CGM clinical advisor manually uploaded today in clinic. Pt is not documenting fasting values or insulin administration. Dexcom Clarity justin hansen Date of : 1985 Generated at: Sep 07, 2025 2:11 PM SUPERVISOR PLATE [employer]MING Reporting period: Darya Sep 01, 2025 - FriSep 07, 2025 Glucose Details Average glucose: 173 mg/dL GMI: N/A Standard deviation: 38 mg/dL Coefficient of Variation: 21.7% Time in Range Very High: 2% High: 76% In Range: 22% Low: 0% Very Low: 0% Target Range 65-140 mg/dL Sensor usage Days with data: 02/26 Time active: 85% Avg. calibrations per day: 0.0 Findings: TIR decreased from 33% to 22% and average CGM value increased from 160 to 173 mg/dL. Urine dip revealed trace protein and trace ketones in clinic today. Pt's Dexcom initially reading 180 mg/dL at start of visit, later reading 178 mg/dL. Checked POC BG with result of 169 mg/dL (Dexcomreading 178 mg/dL at this time). Pt states she ate 2 eggs at 1000--result of 169 mg/dL at 1345. Pt states she is taking Lantus 18/60 and Humalog 4/4/6. Reviewed with pt that the doses she is currently taking are older recommendations and that there have been dose increase recommendations made sincethen. The regimen pt is currently taking--Lantus 18/60 and Humalog 4/4/6--had been recommended on 08/10/25 in clinic. Since then, pt was reviewed remotely on 08/16/25 with recommendation to increase AM Lantus dose--new regimen of Lantus 26/60 and Humalog 4/4/6. Had attempted to call pt with LAMP Gibraltarian interpretor on that date, but pt did not answer--interpretor LVM with insulin adjustments, andCDCES sent email to pt with recommendations, as well. On 08/17/25, pt was back in clinic and a [employer] welding machine feeder was utilized to facilitate consult--reviewed with pt that new dose recommendations at that time were Lantus 26/60 and Humalog 4/4/6. At that time, pt had verbalized understanding of dose change. On 08/24/25, pt was due for a remote review, however, unable to view Dexcom data without manually uploading clinical advisor; reached out to pt for BG data with no reply. On 08/26/25, pt was in clinic for NST and was able to have RN manually upload clinical advisor and verify insulin doses, however, pt reported that she was taking Lantus 18/60 and Humalog 4/4/6. Reached out to pt to remind her of 08/17/25 dose increase to Lantus 26/60 and Humalog 4/4/6. Pt was in clinic again on 08/29/25 for BPP and NST and had RN manually upload clinical advisor--NINA and DANTE DOWNEY reviewed CGM data on 08/30/25for remote review and recommended increasing doses to Lantus 32/68 and Humalog 4/6/8. Attempted to call pt with LAMP Gibraltarian interpretor to discuss dose adjustments, but pt did not answer--Gibraltarian interpretor LVM with dose adjustments and NINA sent email to pt with dose adjustments. See NINA notes from dates listed above for full details. At today's visit, pt states she had missed the emails and voicemails about dose increases which is why she is still taking old dose recommendations. Relayedthe above information to HILL Rodriguez. Intervention: Reviewed with HILL Rodriguez. Poor glycemic control noted. Per HILL Rodriguez and Dr. Chapin, delivery is recommended within the next 2 days--see HILL Rodriguez's progress note for full details. Due to anticipated impending delivery, recommend thatpt continue with insulin regimen she is currently taking. Medication Breakfast Lunch Dinner HS Lantus 18 units 60 units Humalog 4 units 4 units 6 units Education Provided: Confirmed that patient has adequate supplies with refills Reviewed DM2 considerations: Reviewed hormonal changes and changes to insulin sensitivity/requirements after delivery Reviewed importance of regular f/u with PCP for ongoing management of DM2 outside of Reviewed benefits of Pt states she was on Metformin prior to ; reviewed that depending on glycemic trends afterdelivery, anticipate pt may either be appropriate to transition back to Metformin or may require reduced insulin doses. Additional Topics Reviewed: Diabetes in , Insulin Needs in , Breast Feeding , Factors that affect blood sugar , care and testing, and Medication Overview Monitoring/Evaluation: RTC per provider/1 week blood glucose log review--it is anticipated that pt will deliver within thenext couple of days. Check in more frequently if patterns of hyper/hypoglycemia Call [facility] if noted concerns about blood sugars or movement [employer]MING * Sheila Ramires, COMMUNITY DIRECTOR-NEW ACCOUNTS BANKING REPRESENTATIVE - 09/07/2025 1:36 PM CST [facility] follow up visit Justin Hansen is a 40 year old 38w0d. We are following her for Type 2 DM and AMA. She has no complaints today. Blood sugar logs for review via dexcom. Reports Lantus dosing as 18/60and LOG (supposed to be taking 32/68 and LOG ). Patient requesting daughter interpret for visit despite offering the LAMP interpretor in the iPad. She reports good FM, no bleeding, no LOF, no DC, no cramps/contractions/pain/pressure, no WHITMAN's, vision changes, RUQ pain, or swelling. Genetic screening/testing: NIPT Low Risk Her is complicated by: Patient Active Problem List Diagnosis Date Noted Type 2 diabetes mellitus affecting in second trimester, antepartum ([facility]) 04/06/2025 Priority: Not Prioritized Advanced maternal age in multigravida, second trimester ([facility]) 04/06/2025 Priority: Not Prioritized Uncertain dates, antepartum, second trimester ([facility]) 04/06/2025 Priority: Not Prioritized Exam: BP 111/73 (BP Location: Left arm, Patient Position: Sitting, BP Cuff Size: Adult) Pulse 95 Wt 85 kg (187 lb 6.4 oz) General: NAD Abdomen: soft, NT Extremities: equal in size and width bilaterally, NT, no sign of edema FHT: 143 per doppler Urine dip: negative glucose, trace ketones, trace protein, negative blood Labs: HgbA1C was 9.5 US: Please see report for details. Impressions/Recs 1. IUP (Intrauterine ) at 38w0d 2. Type 2 DM, dx 2023 She presents with blood sugar via dexcom. She denies feeling any lows. Logs revealpoor glycemic control. She is globally elevated. See CDE note for details. Current insulin Regimen: Lantus 10/60 New insulin regimen: Lantus 18/60, LOG - After hours triage number provided -S/p nutrition counseling at initial visit -HgbA1c each trimester, recommend repeat with 3T labs -Glucagon provided -Please send baseline lab results for our records (CBC, CMP, PCR) -baseline ophthalmology exam (including retinal examination), encouraged - echo WNL on 06/29/25 -ASA 162 mg daily, from 12 weeks gestation in all pregnancies and for remainder of , reports compliance Glycemic Control Target glucose ranges to minimize excessive growth are: Fasting 60-90 mg/dl; preprandial 60-100 mg/dl; and 1-hour postprandial < 130 mg/dl. surveillance Twice daily movement counts are recommended from 28 weeks. For women who have pre-gestationaldiabetes, twice weekly NST and weekly BPP are recommended starting at 32 weeks gestation. Ultrasound assessment of growth is recommended every 4 weeks, starting at 28 weeks gestation. Delivery Planning made in collaboration with Dr. Dari isaac. Recommend delivery within the next 2 days. Route of delivery Vaginal delivery may be anticipated unless the fetus is excessively large or there is an abnormal presentation. Consider delivery of estimated weight greater than or equal to 4200 grams and delivery is recommended for greater than or equal to 4500 grams. Diabetes is associated with about a six-fold risk for shoulder dystocia. Operative vaginal deliveries should be approached with caution. Glucose control in labor During labor, capillary glucose values should be checked every 1-2 hours (depending on their stability). Maintenance fluids with 5% dextrose are infused to prevent starvation ketosis. If the glucose values exceed 110 mg/dl, an IV insulin infusion is recommended. Ensure transition of care to endocrinology or primary care provider 3. AMA -serum screen/ quad screen previously obtained is invalid, due to incorrect dating - NIPT Low Risk 4. Reviewed kick counts (BID), as well as labor and preeclampsia warnings. 5. RTC: recommend delivery with in the next 2 days. Primary OB's office notified. 6. Keep all appointments with primary OB I spent 30 minutes with the patient, greater than 50% of the time was spent face to face in discussion with the patient the remainder of the time was spent in chart prep and data review. The patient is to follow up with her primary obstetrical care provider for her routine care and acute OB care including delivery as clinically indicated. Once again, we appreciate the opportunity to assist you in the care of your patient. If issues arise for which I can be of help before her next visit here, please contact me directly, or contact one of the [facility] physicians. HILL Alexander 09/07/2025 1:36 PM [employer]OR PLATE FORMING documented in this encounter Plan of Treatment Upcoming Encounters Date Type Department Care Team (Late st Contact Info) Description 09/09/2025 1:45 PM SUPERVISOR PLATE FORMING Hospital Encounter [facility] [address] [place] [id number] Elizabeth Abarca MD [address] [place] [address] 09/12/2025 1:00 PM SUPERVISOR PLATE FORMING Hospital Encounter [facility] [address] [place] [address] 09/16/2025 1:45 PM SUPERVISOR PLATE FORMING Hospital Encounter [facility] [address] [place] [address] 09/19/2025 1:00 PM SUPERVISOR PLATE FORMING Hospital Encounter [facility] [address] [place] [address] Scheduled Referrals Name Type Priority Associated Diagnoses Order Schedule AMB REFERRAL TO MATERNAL- MEDICINE Outpatient Referral Routine 1 Occurrence s starting 09/07/2025 until 09/07/2025 documented as of this encounter Visit Diagnoses Diagnosis Type 2 diabetes mellitus affecting in second trimester, antepartum (HCC)- Primary Advanced maternal age in multigravida, second trimester (HCC) Encounter for other screening follow-up (HCC) Supervision of high-risk of elderly multigravida, third trimester (HCC) 37 weeks gestation of (HCC) state, incidental complicated by pre-existing type 2 diabetes in third trimester (HCC)- Primary 37 weeks gestation of ([facility]) state, incidental Supervision of high-risk of elderly multigravida, third trimester ([facility]) Encounter for other screening follow-up ([facility]) Type 2 diabetes mellitus affecting in second trimester, antepartum (HCC)- Primary Advanced maternal age in multigravida, second trimester ([facility]) Supervision of high-risk of elderly multigravida, third trimester ([facility]) Encounter for other screening follow-up ([facility]) 37 weeks gestation of ([facility]) state, incidental Type 2 diabetes mellitus affecting in third trimester, antepartum ([facility])- Primary Supervision of high-risk of elderly multigravida, third trimester ([facility]) Encounter for other screening follow-up ([facility]) Type 2 diabetes mellitus affecting in second trimester, antepartum ([facility])- Primary Supervision of high-risk of elderly multigravida, third trimester ([facility]) Encounter for other screening follow-up ([facility]) 39 weeks gestation of ([facility]) state, incidental documented in this encounter
--- NOTE | 2025-09-07 16:55 | LDADM ---
This patient, Joana Jones, was admitted to Labor/Delivery/Recovery 106 on 09/07/25 at 16:55. Plans for labor, pain management and were discussed with patient. Patient/family oriented to hospital policies and general routines including ID bracelet, bed and alarms, visiting hours, pain management, procedures, bathroom and other care routines, personal items, smoking policy, room service/diet and guest tray routines, security routines, and visiting hours. Patient/Family are encouraged to report perceived risks to care and to ask questions if they do not understand what they are told or what they should do. See OBIX for further documentation.
[2025-09-07 17:56] LABS: Hematocrit 37.2 % (37.0-47.0); Hemoglobin 12.4 g/dL (12.0-15.0); Immature Granulocyte Percent A 0.1 % (0-0.5); Lymphocytes Absolute Auto 1.76 K/mm3 (0.9-3.2); Mean Corpuscular HGB Conc 33.3 g/dl (32-36); Mean Corpuscular Hemoglobin 27.6 pg (26-34); Mean Corpuscular Volume 82.7 fl (80-100); Nucleated Red Blood Cells Absolute Auto 0.000 K/mm3 (0.0-0.012); Nucleated Red Blood Cells Perc 0.0 % (0.0-0.2); Platelet Count Result 233 k/mm3 (150-375); Red Blood Count 4.50 M/mm3 (4.2-5.4); White Blood Count 6.9 K/mm3 (4.5-10.0)
[2025-09-07 18:24] LABS: Alanine Aminotransferase 16 U/L (6-35); Albumin Level 3.4 g/dL (3.5-5.1); Alkaline Phosphatase 157 U/L (38-126); Anion Gap 7 mmol/L (4-12); Aspartate Amino Transferase 24 U/L (14-36); Bilirubin,Total 0.8 mg/dL (0.2-1.3); Blood Urea Nitrogen 11 mg/dL (7-17); Calcium 9.0 mg/dL (8.4-10.2); Carbon Dioxide 18 mmol/L (22-30); Chloride 107 mmol/L (98-107); Estimated CRCL calculation 131 ml/min; Estimated Glomerular Filt Rate > 60; Glucose 95 mg/dL (65-110); Potassium 4.0 mmol/L (3.4-5.0); Sodium 132 mmol/L (137-145); Total Protein 6.9 g/dL (6.3-8.2)
[2025-09-07] MEDS: INSULIN ASPART (*BKC) 100 UNITS/ML 6 UNITS SUB-Q (18:26)
[2025-09-07] MEDS: LACTATED RINGERS 1,000 ML 125 ML IV CONT (18:28)
[2025-09-07] MEDS: AMPICILLIN SODIUM 2 GM in SODIUM CHLORIDE 0.9% IV 100 ML 200 ML IVPB (18:29)
--- OUTSIDE RECORDS SUMMARY | 2025-09-07 18:31 | XMS_ITS | Clinical Summary ---
Author Organization [facility] Address [address] [place] [address] Care Team Providers Care Wheel Tuner Name Role Phone None, Provider Primary Care Provider Unavaila ble Social History Tobacco Use Types Packs/Day Years [...] Cancer Screening with HPV 2016 COVID-19 Vaccine (2024-2 6 season) 2025 Influenza Adult (#1) 2025 Hepatitis A Vaccines Aged Out No long er eligible based [...] on patient's age to complete this topic Insurance MEDICAID Care Teams Wheel Tuner Relationship Specialty Start Date End Date None, Provider, PCP - General UNKNOWN PHYSICIAN SPECIALTY 03/10/25
--- OUTSIDE RECORDS SUMMARY | 2025-09-07 18:31 | XMS_ITS | Data Portability ---
Author Organization [facility] ONDINAOmsan Address [address] [place] [address] Care Team Providers Care Regulatory Manager Name Role Phone TESHA HICKS Primary Care Provider Unavailabl e Assessment No assessment recorded. Plan of Treatment Reminders Order Date Submit Date Provider Last Modified By Organization Details Last Modified Time Details Appointments None recorde d. Lab HbA1c (hemogl obin A1c), blood 2024 025 [email or web address] In-Office Order, Internal Use Only DO Not Attach Compendium DO Not Attach Compendium, Do Not Delete/merge, [id number] 18:12:39 prenata l panel 2024 025 [facility], [address] [place] [address], [address], [place], [address], 5 17:10:19 varicel la zoster virus IgG Ab, QL, IA, serum 2024 025 [facility], [address] [place] [address], [address], [place], [address], 5 17:10:23 drug screen, urine 2024 025 [facility], [address] [place] [address], [address], [place], [address], 5 17:10:20 pregnan cy test, urine 2024 025 [email or web address] In-Office Order, Internal Use Only DO Not Attach Compendium DO Not Attach Compendium, Do Not Delete/merge, 5 18:09:35 alpha-1 -fetopr otein + alpha-1 -fetopr otein L3 panel, serum or plasma 2024 025 [email or web address] [facility], [address], [address], [place], [address], 5 09:56:02 lipid panel, serum 2024 025 [email or web address] [facility], [address], [address], [place], [address], 5 17:49:47 lipid panel, serum 2024 025 [email or web address] [facility], [address], [address], [place], [address], 5 15:10:20 HbA1c (hemogl obin A1c), blood 2024 025 [email or web address] In-Office Order, Internal Use Only DO Not Attach Compendium DO Not Attach Compendium, Do Not Delete/merge, 15:01:40 glucose , fingers tick, blood 2024 025 [email or web address] In-Office Order, Internal Use Only DO Not Attach Compendium DO Not Attach Compendium, Do Not Delete/merge, 5 15:01:39 albumin /creati nine, mass ratio, urine 2024 025 [email or web address] Games [facility], [address], [address], [place], [address], 5 16:55:58 lipid panel, serum 2023 024 [email or web address] [facility], [address], [address], [place], [address], 5 16:54:56 CMP, serum or plasma 2023 024 [email or web address] [facility], [address], [address], [place], [address], 5 16:55:02 HbA1c (hemogl obin A1c), blood 2023 024 [email or web address] In-Office Order, Internal Use Only DO Not Attach Compendium DO Not Attach Compendium, Do Not Delete/merge, [id number] 4 16:04:28 glucose , fingers tick, blood 2023 024 toña In-Office Order, Internal Use Only DO Not Attach Compendium DO Not Attach Compendium, Do Not Delete/merge, [id number] 4 16:04:29 Referral obstetr ician and gynecol ogist referra l - Algerian Speakin g- Complet e transfe r of care d/t Type 2 diabeti c, AMA 2024 025 ld Sandoval MD, [address], [address], [place], [address], 5 09:56:45 diabeti c ophthal mology referra l 2024 025 [facility], [address], [place], [address], 5 09:05:44 Procedures None recorde d. Surgeries None recorde d. Imaging US, obstetr ic, materna l evaluat ion + anatomy 2024 025 [email or web address] [facility], [address], [place], [address], 5 10:11:46 Medication Orders Lantus Solosta r U-100 Insulin 100 unit/mL (3 mL) subcuta neous pen 2024 [facility], [address] [place], [address], 5 13:57:00 Prenata l 28 mg iron-80 0 mcg tablet 2024 [facility], [address] [place] [address], [address], 5 18:09:34 Adult Low Dose Aspirin 81 mg tablet, delayed release 2024 [facility], [address] [place] [address], [address], 5 18:09:34 atorvas tatin 40 mg tablet 2024 025 [facility], [address] [place] [address], [address], 5 15:02:11 Jardian ce 10 mg tablet 2024 025 [facility], [address] [place] [address], [address], 5 15:02:11 metform in 1,000 mg tablet 2024 025 [facility], [address] [place] [address], [address], 5 15:02:10 atorvas tatin 40 mg tablet 2023 024 [facility], [address] [place] [address], [address], 4 16:04:36 Jardian ce 10 mg tablet 2023 024 [facility], [address] [place] [address], [address], 4 16:04:35 atorvas tatin 40 mg tablet 2023 [facility], [address] [place], [address], 11:19:27 Macrobi d 100 mg capsule 2023 [facility], [address] [place], [address], 15:34:19 Patient TargetsNo targets recorded. Patient Instructions Encounter Date Encounter Id Patient Instructions Last Modified By Organization Details Last Modified Time 06/22/2024 [id number] test results increase physical activity, heart healthy diet, drink water Eat a variety of foods every day. Good choices include fruits, vegetables, whole grains (like oatmeal), dried beans and peas, and nuts and seeds. Other good choices are soy products (like tofu) and fat-free or low-fat dairy products. Use olive and canola oils instead of butter, margarine, or hydrogenated or partially hydrogenated oils. (Canola oil margarine without trans fat is fine.) Replace red meat with fish, poultry, and soy protein (like tofu). Limit processed and packaged foods like chips, crackers, and cookies. Bake, broil, or steam foods instead of frying them. Be physically active. Get plenty of exercise every day. Go for a walk or jog, ride your bike, or play sports with friends. Stay at a healthy weight or lose weight by making the changes in eating and physical activity listed above. Losing just a small amount of weight, even 5 to 10 pounds, can reduce your risk for having a heart attack or stroke. Do not smoke. Smoking can increase the chance you will have a heart attack. If you need help quitting, talk to your doctor about stop-smoking programs and medicines. These can increase your chances of quitting for good. If you take medicine for high cholesterol, be sure to take it every day. [email or web address] Not available 06/22/2024 11:19:36 08/16/2024 [id number] vacuna contra la influenza (gripe): instrucciones de cuidado - [influenza (flu) vaccine: care instructions] [email or web address] Not available 08/16/2024 16:26:27 Aprenda sobre la diabetes de tipo 2 - [Learning About Type 2 Diabetes] [email or web address] Not available 08/16/2024 16:04:29 Diabetes de tipo 2: Instrucciones de cuidado - [Type 2 Diabetes: Care Instructions] [email or web address] Not available 08/16/2024 16:04:28 aprenda acerca del peso saludable - [learning about healthy weight] [email or web address] Not available 08/16/2024 16:04:28 Uncontrolled Diabetes Mellitus complications , blindness, kidney failure, amputations etc. Take your diabetes medication daily check blood sugars fasting and post prandial --keep a log--bring to next appointment stop concentrated sugars--follow 1500 meal plan exercise 50-60 minutes daily on most days check your feet for sores, cuts, etc., see eye doctor once a year see dentist every 6 months [email or web address] Not available 08/16/2024 16:04:19 12/20/2024 [id number] A healthy lifestyle: care instructions [email or web address] Not available 12/20/2024 15:01:39 Aprenda sobre la diabetes de tipo 2 - [Learning About Type 2 Diabetes] [email or web address] Not available 12/20/2024 15:01:39 Diabetes de tipo 2: Instrucciones de cuidado - [Type 2 Diabetes: Care Instructions] Not available 12/20/2024 15:01:40 aprenda acerca del peso saludable - [learning about healthy weight] [email or web address] Not available 12/20/2024 15:01:39 Lleve un diario de alimentos Siga kena dieta saludable para el coraz n, baja en grasas y baja en colesterol. Saulo ejercicio 50-60 minutos 5-6 veces por semana. Aumente la agua tome al raine Volant alvarado medicamento para la diabetes diariamente Volant el nivel de az car en la mo en ayunas y 2 horas despues de comer --mantenga un registro--lleve a la pr xima lucia Deje de consumir az cares concentrados y siga el plan de alimentaci n 1500. Revise rod pies en busca de llagas, leslie, etc., Dmitry al oftalm logo kena vez al a o Dmitry al dentista cada 6 meses [email or web address] Not available 12/20/2024 14:43:21 03/07/2025 [id number] A healthy lifestyle: care instructions [email or web address] Not available 03/07/2025 18:09:34 I was present an d available in the Family Medicine clinic to discuss the patient's care during the time of the appointment. All labs/imaging/cons ults/prescription s to be followed by the resident rendering services on day of encounter. I agree with the resident's assessment and plan as documented with the following addendum: [None] Portillo Monahangs [email or web address] Not available 03/11/2025 12:42:28 Reason for Referral Diabetic Ophthalmology Refer ral for Type 2 diabetes mellitus Referring Physician: Cindy Walsh, Family Medicine, Encounter Date: 12/20/2024 Dry Transfer Man And Gynecologis t Referral for Routine care Algerian Speaking- Complete transfer of care d/t Type 2 diabetic, AMA Referring Physician: Eyal Swenson, Building Service Worker, Encounter Date: 03/07/2025 Results Created Date Observation Date Name Description Value Unit Range Abnormal Flag Note LastModifiedBy Organization Detail LastModifiedTime 06/16/20 24 06/16/2024 LIPID PANEL cholesterol, total 170 mg/dL 100-19 9 Not Available [facility] [address] [place], [address], 06/16/2024 23:07:46 06/16/20 24 06/16/2024 LIPID PANEL triglyceride s 647 mg/dL 0-149 above high normal Not Available [facility] [address] [place], [address], 06/16/2024 23:07:46 06/16/20 24 06/16/2024 LIPID PANEL HDL cholesterol 30 mg/dL 40-999 below low normal Not Available [facility] [address] [place], [address], 06/16/2024 23:07:46 06/16/20 24 06/16/2024 LIPID PANEL VLDL cholesterol dulce 129 mg/dL 5-40 above high normal Not Available [facility] [address] [place] [address], [address], 06/16/2024 23:07:46 06/16/20 24 06/16/2024 LIPID PANEL LDL chol calc (nih) 124 mg/dL 0-99 above high normal Not Available [facility] [address] [place] [address], [address], 06/16/2024 23:07:46 06/16/20 24 06/16/2024 BASIC METAB OLIC PANEL (8) glucose 500 mg/dL 70-99 panic high RESUL TS VERIF IED AND LEDBETTER D TO DR WOODROW GARCIA ON BY Thomas sharma, CPT AT 2145 ON 06/16. Not Available [facility] [address] [place] [address], [address], 06/16/2024 23:07:46 06/16/20 24 06/16/2024 BASIC METAB OLIC PANEL (8) BUN 14 mg/dL 6-20 Not Available [facility] [address] [place] [address], [address], 06/16/2024 23:07:46 06/16/20 24 06/16/2024 BASIC METAB OLIC PANEL (8) creatinine 0.97 mg/dL 0.76-1 .27 Not Available [facility] [address] [place] [address], [address], 06/16/2024 23:07:46 06/16/20 24 06/16/2024 BASIC METAB OLIC PANEL (8) eGFR 77 >=60 Units for eGFR value s are mL/mi n/1.7 3 The eGFR Calcu latio n has not been valid ated for patie nts under the age of 18. If test resul ts are displ ayed for a patie nt under the age of 18, disre denice that value . Not Available [facility] [address] [place], [address], 06/16/2024 23:07:46 06/16/20 24 06/16/2024 BASIC METAB OLIC PANEL (8) BUN/creatini ne ratio 14 9-23 Not Available [facility] [address] [place], [address], 06/16/2024 23:07:46 06/16/20 24 06/16/2024 BASIC METAB OLIC PANEL (8) sodium 133 mmol/ L 134-14 4 below low normal Not Available [facility] [address] [place] [address], [address], 06/16/2024 23:07:46 06/16/20 24 06/16/2024 BASIC METAB OLIC PANEL (8) potassium 4.3 mmol/ L 3.5-5. 2 Not Available [facility] [address] [place] [address], [address], 06/16/2024 23:07:46 06/16/20 24 06/16/2024 BASIC METAB OLIC PANEL (8) chloride 95 mmol/ L 96-106 below low normal Not Available [facility] [address] [place], [address], 06/16/2024 23:07:46 06/16/20 24 06/16/2024 BASIC METAB OLIC PANEL (8) carbon dioxide, total 20 mmol/ L 20-29 Not Available [facility] [address] [place], [address], 06/16/2024 23:07:46 06/16/20 24 06/16/2024 BASIC METAB OLIC PANEL (8) calcium 9.6 mg/dL 8.7-10 .2 Not Available [facility] [address] [place], [address], 06/16/2024 23:07:46 06/16/20 24 06/16/2024 MICRO SCOPI C EXAMI NATIO N WBC >50 abnormal Not Available [facility] [address] [place], [address], 06/16/2024 23:07:47 06/16/20 24 06/16/2024 MICRO SCOPI C EXAMI NATIO N RBC Commen t NONE SEEN Not Available [facility] [address] [place], [address], 06/16/2024 23:07:47 06/16/20 24 06/16/2024 MICRO SCOPI C EXAMI NATIO N epithelial cells (non renal) 2+ Not Available [facility] [address] [place], [address], 06/16/2024 23:07:47 06/16/20 24 06/16/2024 MICRO SCOPI C EXAMI NATIO N bacteria 2+ abnormal Not Available [facility] [address] [place] [address], [address], 06/16/2024 23:07:47 06/16/20 24 06/16/2024 MICRO SCOPI C EXAMI NATIO N yeast RARE abnormal Not Available [facility] [address] [place] [address], [address], 06/16/2024 23:07:47 06/16/20 24 06/16/2024 URINA LYSIS , COMPL ETE specific gravity 1.020 1.005- 1.030 Not Available [facility] [address] [place], [address], 06/16/2024 23:07:47 06/16/20 24 06/16/2024 URINA LYSIS , COMPL ETE pH 6.0 5.0-7. 0 Not Available [facility] [address] [place] [address], [address], 06/16/2024 23:07:47 06/16/20 24 06/16/2024 URINA LYSIS , COMPL ETE urine-color YELLOW yellow Not Available [facility] [address], [place], [address], 06/16/2024 23:07:47 06/16/20 24 06/16/2024 URINA LYSIS , COMPL ETE appearance CLEAR Not Available [facility] [address], [place], [address], 06/16/2024 23:07:47 06/16/20 24 06/16/2024 URINA LYSIS , COMPL ETE WBC esterase COMMEN T NEGAT NOHEMI Not Available [facility] [address], [place], [address], 06/16/2024 23:07:47 06/16/20 24 06/16/2024 URINA LYSIS , COMPL ETE protein COMMEN T NEGAT NOHEMI Not Available [facility] [address], [place], [address], 06/16/2024 23:07:47 06/16/20 24 06/16/2024 URINA LYSIS , COMPL ETE glucose >=1000 abnormal Not Available [facility] [address], [place], [address], 06/16/2024 23:07:47 06/16/20 24 06/16/2024 URINA LYSIS , COMPL ETE ketones COMMEN T NEGAT NOHEMI Not Available [facility] [address], [place], [address], 06/16/2024 23:07:47 06/16/20 24 06/16/2024 URINA LYSIS , COMPL ETE occult blood COMMEN T NEGAT NOHEMI Not Available [facility] [address], [place], [address], 06/16/2024 23:07:47 06/16/20 24 06/16/2024 URINA LYSIS , COMPL ETE bilirubin COMMEN T NEGAT NOHEMI Not Available [facility] [address], [place], [address], 06/16/2024 23:07:47 06/16/20 24 06/16/2024 URINA LYSIS , COMPL ETE urobilinogen ,semi-qn 0.2 eu/dL 0.2-1. 0 Not Available [facility] [address] [place], [address], 06/16/2024 23:07:47 06/16/20 24 06/16/2024 URINA LYSIS , COMPL ETE nitrite, urine COMMEN T negati ve NEGAT NOHEMI Not Available [facility] [address] [place], [address], 06/16/2024 23:07:47 06/16/20 24 06/16/2024 CBC, PLATE LET, NO DIFFE RENTI AL WBC 7.9 x10e3 /uL 3.4-10 .8 Not Available [facility] [address] [place], [address], 06/16/2024 23:07:48 06/16/20 24 06/16/2024 CBC, PLATE LET, NO DIFFE RENTI AL RBC 5.53 x10e6 /uL 3.77-5 .28 above high normal Not Available [facility] [address] [place], [address], 06/16/2024 23:07:48 06/16/20 24 06/16/2024 CBC, PLATE LET, NO DIFFE RENTI AL hemoglobin 15.0 g/dL 11.1-1 5.9 Not Available [facility] [address] [place], [address], 06/16/2024 23:07:48 06/16/20 24 06/16/2024 CBC, PLATE LET, NO DIFFE RENTI AL hematocrit 44.8 % 34.0-4 6.6 Not Available [facility] [address] [place], [address], 06/16/2024 23:07:48 06/16/20 24 06/16/2024 CBC, PLATE LET, NO DIFFE RENTI AL MCV 81 fL 79-97 Not Available [facility] [address] [place] [address], [address], 06/16/2024 23:07:48 06/16/20 24 06/16/2024 CBC, PLATE LET, NO DIFFE RENTI AL MCH 27.1 pg 26.6-3 3.0 Not Available [facility] [address] [place] [address], [address], 06/16/2024 23:07:48 06/16/20 24 06/16/2024 CBC, PLATE LET, NO DIFFE RENTI AL MCHC 33.5 g/dL 31.5-3 5.7 Not Available [facility] [address] [place] [address], [address], 06/16/2024 23:07:48 06/16/20 24 06/16/2024 CBC, PLATE LET, NO DIFFE RENTI AL RDW 12.3 % 11.5-1 4.5 Not Available [facility] [address] [place] [address], [address], 06/16/2024 23:07:48 06/16/20 24 06/16/2024 CBC, PLATE LET, NO DIFFE RENTI AL platelets 262 x10e3 /uL 150-45 0 Mean Plate let Volum e 11.5 fL 8.9-1 2.7 N Not Available [facility] [address] [place] [address], [address], 06/16/2024 23:07:48 06/16/20 24 06/16/2024 CBC, PLATE LET, NO DIFFE RENTI AL NRBC 0 % 0-0 Not Available [facility] [address] [place] [address], [address], 06/16/2024 23:07:48 06/16/20 24 06/17/2024 TSH RFX ON ABNOR MAL TO FREE T4 TSH 2.510 uIU/m L 0.450- 4.500 Not Available [facility] ([facility]) [address] [facility], [place], [address], 06/17/2024 17:10:41 06/16/20 24 06/17/2024 INSUL IN insulin 9.2 uIU/m L 2.6-24 .9 Not Available [facility] ([facility]) [address] [facility], [place], [address], 06/17/2024 17:10:43 06/16/20 24 06/17/2024 ALVARADO EN AUTHO RIZAT ION written authorizatio n Jose G Lin en Autho rizat ion Recei annita. Autho rizat ion recei annita from PER ORIGI NAL ORDER 06-17 Logge d by Annabel wooten Not Available [facility] ([facility]) [address] [facility], [place], [address], 06/22/2024 12:13:03 06/16/20 24 06/22/2024 HEMOG LOBIN A1C hemoglobin A1C 13.5 % 4.8-5. 6 above high normal Predi abete s: 5.7 - 6.4 Diabe dipika: >6.4 Glyce montse contr ol for adult s with diabe dipika: <7.0 Not Available [facility] ([facility]) [address] [facility], [place], [address], 06/22/2024 12:13:04 06/16/2006/16/2024 pregn daniel test, urine HCG negati ve Not Available In-Office Order Internal Use Only DO Not Attach Compendium DO Not Attach Compendium, Do Not Delete/merge, [id number] 06/16/2024 15:58:49 06/16/2006/16/2024 HbA1c (hemo globi n A1c), blood HbA1c 13.1 Not Available In-Office Order Internal Use Only DO Not Attach Compendium DO Not Attach Compendium, Do Not Delete/merge, 06/16/2024 15:48:20 06/16/20 24 06/16/2024 gluco se, finge rstic k, blood Blood Glucose: mg/dl 488 Not Available In-Off ice Order Internal Use Only DO Not Attach Compendium DO Not Attach Compendium, Do Not Delete/merge, 06/16/2024 15:48:51 08/16/20 24 08/16/2024 HbA1c (hemo globi n A1c), blood HbA1c 10.9 Not Available In-Office Order Internal Use Only DO Not Attach Compendium DO Not Attach Compendium, Do Not Delete/merge, 08/16/2024 15:27:45 08/16/20 24 08/16/2024 gluco se, finge rstic k, blood Blood Glucose: mg/dl 203 Not Available In-Off ice Order Internal Use Only DO Not Attach Compendium DO Not Attach Compendium, Do Not Delete/merge, 08/16/2024 15:27:45 12/21/19 25 12/20/2024 HbA1c (hemo globi n A1c), blood HbA1c 10.7 Not Available In-Office Order Internal Use Only DO Not Attach Compendium DO Not Attach Compendium, Do Not Delete/merge, 12/20/2024 14:20:54 12/21/1912/20/2024 gluco se, finge rstic k, blood Blood Glucose: mg/dl 229 Not Available In-Off ice Order Internal Use Only DO Not Attach Compendium DO Not Attach Compendium, Do Not Delete/merge, 12/20/2024 14:20:55 12/30/1912/29/2024 LIPID PANEL cholesterol, total 160 mg/dL 100-19 9 Not Available [facility] [address] [place], [address], 12/29/2024 22:12:14 12/30/19 25 12/29/2024 LIPID PANEL triglyceride s 258 mg/dL 0-149 above high normal Not Available [facility] [address] [place], [address], 12/29/2024 22:12:14 12/30/19 25 12/29/2024 LIPID PANEL HDL cholesterol 32 mg/dL 40-999 below low normal Not Available [facility] [address] [place], [address], 12/29/2024 22:12:14 12/30/19 25 12/29/2024 LIPID PANEL VLDL cholesterol dulce 52 mg/dL 5-40 above high normal Not Available [facility] [address] [place], [address], 12/29/2024 22:12:14 12/30/19 25 12/29/2024 LIPID PANEL LDL chol calc ([facility]) 116 mg/dL 0-99 above high normal Not Available [facility] [address] [place], [address], 12/29/2024 22:12:14 03/07/20 25 03/10/2025 SPECI MEN STATU S REPOR T specimen status report TNP Test not perfo rmed. No speci men recei annita. TEST: [id number] Pregn daniel, [place] [id number] 6 Varic patrice- Zoste r V Ab, IgG Not Available [facility] ([facility]) [address] [facility], [place], [address], 03/11/2025 17:10:18 03/07/20 25 03/09/2025 GEST. DIABE DIPIKA 1-HR SCREE N gestational diabetes screen - mg/dL Test not perfo rmed. No beckman top recei annita. Accor ding to ADA, a gluco se thres hold of >139 mg/dL after 50-gr am load ident ifies appro ximat eusebia 80% of women with gesta ian l diabe dipika melli tus, while the sensi tivit y is furth er incre ased to appro ximat eusebia 90% by a thres hold of >129 mg/dL . Not Available [facility] ([facility]) [address] [facility], [place], [address], 03/11/2025 17:10:18 03/07/20 25 03/09/2025 PREGN DANIEL, INITI AL SCREE N ABO grouping - Test not perfo rmed Not Available [facility] ([facility]) [address] [place], [address], 03/11/2025 17:10:19 03/07/20 25 03/09/2025 PREGN DANIEL, INITI AL SCREE N Rh factor - Test not perfo rmed Not Available [facility] ([facility]) [address] [place], [address], 03/11/2025 17:10:19 03/07/20 25 03/09/2025 PREGN DANIEL, INITI AL SCREE N antibody screen - Test not perfo rmed Not Available [facility] ([facility]) [address] [place], [address], 03/11/2025 17:10:19 03/07/20 25 03/09/2025 PREGN DANIEL, INITI AL SCREE N RBC - Test not perfo rmed Not Available [facility] ([facility]) [address] [place], [address], 03/11/2025 17:10:19 03/07/20 25 03/09/2025 PREGN DANIEL, INITI AL SCREE N hemoglobin - Test not perfo rmed Not Available [facility] ([facility]) [address] [place], [address], 03/11/2025 17:10:19 03/07/20 25 03/09/2025 PREGN DANIEL, INITI AL SCREE N hematocrit - Test not perfo rmed Not Available [facility] ([facility]) [address] [place], [address], 03/11/2025 17:10:19 03/07/20 25 03/09/2025 PREGN DANIEL, INITI AL SCREE N platelets - Test not perfo rmed Not Available [facility] ([facility]) [address] [facility] [place], [address], 03/11/2025 17:10:19 03/07/20 25 03/09/2025 PREGN DANIEL, INITI AL SCREE N neutrophils - Test not perfo rmed Not Available [facility] ([facility]) [address] [facility], [place], [address], 03/11/2025 17:10:19 03/07/20 25 03/09/2025 PREGN DANIEL, INITI AL SCREE N lymphs - Test not perfo rmed Not Available [facility] ([facility]) [address] [facility], [place], [address], 03/11/2025 17:10:19 03/07/20 25 03/09/2025 PREGN DANIEL, INITI AL SCREE N monocytes - Test not perfo rmed Not Available [facility] ([facility]) [address] [place], [address], 03/11/2025 17:10:19 03/07/20 25 03/09/2025 PREGN DANIEL, INITI AL SCREE N eos - Test not perfo rmed Not Available [facility] ([facility]) [address] [facility], [place], [address], 03/11/2025 17:10:19 03/07/20 25 03/09/2025 PREGN DANIEL, INITI AL SCREE N lymphs (absolute) - Test not perfo rmed Not Available [facility] ([facility]) [address] [place], [address], 03/11/2025 17:10:19 03/07/20 25 03/09/2025 PREGN DANIEL, INITI AL SCREE N eos (absolute) - Test not perfo rmed Not Available [facility] ([facility]) [address] [place], [address], 03/11/2025 17:10:19 06/16/03/09/2025 PREGN DANIEL, INITI AL SCREE N baso (absolute) - Test not perfo rmed Not Available [facility] ([facility]) [address] [facility], [place], [address], 03/11/2025 17:10:19 03/07/20 25 03/10/2025 PREGN DANIEL, INITI AL SCREE N HBsAg screen - Test not perfo rmed. No speci men recei annita. Not Available [facility] ([facility]) [address] [facility], [place], [address], 03/11/2025 17:10:19 03/07/20 25 03/10/2025 PREGN DANIEL, INITI AL SCREE N HCV Ab - Test not perfo rmed Not Available [facility] ([facility]) [address] [facility], [place], [address], 03/11/2025 17:10:19 03/07/20 25 03/10/2025 PREGN DANIEL, INITI AL SCREE N RPR - Test not perfo rmed Not Available [facility] ([facility]) [address] [place], [address], 03/11/2025 17:10:19 03/07/20 25 03/10/2025 PREGN DANIEL, INITI AL SCREE N rubella antibodies, IgG - Test not perfo rmed Not Available [facility] ([facility]) [address] [place], [address], 03/11/2025 17:10:19 03/07/20 25 03/10/2025 PREGN DANIEL, INITI AL SCREE N HIV Ab/P24 Ag screen - Test not perfo rmed Not Available [facility] ([facility]) [address] [place], [address], 03/11/2025 17:10:19 03/07/20 25 03/10/2025 PREGN DANIEL, INITI AL SCREE N chlamydia trachomatis, LEONOR - Test not perfo rmed Not Available [facility] ([facility]) [address] [place], [address], 03/11/2025 17:10:19 03/07/20 25 03/10/2025 PREGN DANIEL, INITI AL SCREE N neisseria gonorrhoeae, LEONOR - Test not perfo rmed Not Available [facility] ([facility]) [address] [place], [address], 03/11/2025 17:10:19 03/07/20 25 03/10/2025 PREGN DANIEL, INITI AL SCREE N WBC - Test not perfo rmed Not Available [facility] ([facility]) [address] [place], [address], 03/11/2025 17:10:19 03/07/20 25 03/10/2025 PREGN DANIEL, INITI AL SCREE N specific gravity - Test not perfo rmed Not Available [facility] ([facility]) [address] [place], [address], 03/11/2025 17:10:19 03/07/20 25 03/10/2025 PREGN DANIEL, INITI AL SCREE N pH - Test not perfo rmed Not Available [facility] ([facility]) [address] [place], [address], 03/11/2025 17:10:19 03/07/20 25 03/10/2025 PREGN DANIEL, INITI AL SCREE N protein - Test not perfo rmed Not Available [facility] ([facility]) [address] [place], [address], 03/11/2025 17:10:19 03/07/20 25 03/10/2025 PREGN DANIEL, INITI AL SCREE N glucose - Test not perfo rmed Not Available [facility] ([facility]) [address] [place], [address], 03/11/2025 17:10:19 03/07/20 25 03/10/2025 PREGN DANIEL, INITI AL SCREE N ketones - Test not perfo rmed Not Available [facility] ([facility]) [address] [place], [address], 03/11/2025 17:10:19 03/07/20 25 03/10/2025 PREGN DANIEL, INITI AL SCREE N urine culture,pren atal, w/gbs FINAL REPORT Not Available [facility] ([facility]) [address] [facility], [place], [address], 03/11/2025 17:10:19 03/07/20 25 03/11/2025 PREGN DANIEL DRUG PROFI LE, UR, 16 amphetamines screen, urine NEGATI VE NG/mL cutoff =500 Amphe tamin e test inclu merry Amphe tamin e and Metha mphet amine . Not Available [facility] ([facility]) [address] [facility], [place], [address], 03/11/2025 17:10:20 03/07/20 25 03/11/2025 PREGN DANIEL DRUG PROFI LE, UR, 16 barbiturates NEGATI VE NG/mL cutoff =200 Not Available [facility] ([facility]) [address] [facility], [place], [address], 03/11/2025 17:10:20 03/07/20 25 03/11/2025 PREGN DANIEL DRUG PROFI LE, UR, 16 benzodiazepi elizabeth NEGATI VE NG/mL cutoff =200 Not Available [facility] ([facility]) [address] [place], [address], 03/11/2025 17:10:20 03/07/20 25 03/11/2025 PREGN DANIEL DRUG PROFI LE, UR, 16 cannabinoid NEGATI VE NG/mL cutoff =50 Not Available [facility] ([facility]) [address] [place], [address], 03/11/2025 17:10:20 03/07/20 25 03/11/2025 PREGN DANIEL DRUG PROFI LE, UR, 16 cocaine (metab.), urine NEGATI VE NG/mL cutoff =150 Not Available [facility] ([facility]) [address] [place], [address], 03/11/2025 17:10:20 03/07/20 25 03/11/2025 PREGN DANIEL DRUG PROFI LE, UR, 16 opiates NEGATI VE NG/mL cutoff =300 Opiat e test inclu merry Codei ne, Morph ine, [place] morph one, [place] codon e. Not Available [facility] ([facility]) [address] [place], [address], 03/11/2025 17:10:20 03/07/20 25 03/11/2025 PREGN DANIEL DRUG PROFI LE, UR, 16 oxycodone/ox ymorphone, urine NEGATI VE NG/mL cutoff =300 Test inclu merry Oxyco done and Oxymo rphon e Not Available [facility] ([facility]) [address] [place], [address], 03/11/2025 17:10:20 03/07/20 25 03/11/2025 PREGN DANIEL DRUG PROFI LE, UR, 16 pcp, urine NEGATI VE NG/mL cutoff =25 Not Available [facility] ([facility]) [address] [place], [address], 03/11/2025 17:10:20 03/07/20 25 03/11/2025 PREGN DANIEL DRUG PROFI LE, UR, 16 methadone screen, urine NEGATI VE NG/mL cutoff =300 Not Available [facility] ([facility]) [address] [place], [address], 03/11/2025 17:10:20 03/07/20 25 03/11/2025 PREGN DANIEL DRUG PROFI LE, UR, 16 propoxyphene , urine NEGATI VE NG/mL cutoff =300 Not Available [facility] ([facility]) [address] [place], [address], 03/11/2025 17:10:20 03/07/20 25 03/11/2025 PREGN DANIEL DRUG PROFI LE, UR, 16 fentanyl, urine NEGATI VE pg/mL cutoff =2000 Test inclu merry Fenta nyl and Norfe ntany l This test was devel oped and its perfo rmanc e marta cteri stics deter mined by [facility]. It has not been clear ed or appro annita by the Food and Drug Admin istra tion. Not Available [facility] ([facility]) [address] [place], [address], 03/11/2025 17:10:20 03/07/20 25 03/11/2025 PREGN DANIEL DRUG PROFI LE, UR, 16 tapentadol, urine NEGATI VE NG/mL cutoff =200 This test was devel oped and its perfo rmanc e marta cteri stics deter mined by [facility]. It has not been clear ed or appro annita by the Food and Drug Admin istra tion. Not Available [facility] ([facility]) [address] [place], [address], 03/11/2025 17:10:20 03/07/20 25 03/11/2025 PREGN DANIEL DRUG PROFI LE, UR, 16 tramadol NEGATI VE NG/mL cutoff =200 Not Available [facility] ([facility]) [address] [place], [address], 03/11/2025 17:10:20 03/07/20 25 03/11/2025 PREGN DANIEL DRUG PROFI LE, UR, 16 ethyl glucuronide screen, ur NEGATI VE NG/mL cutoff =500 This test was devel oped and its perfo rmanc e marta cteri stics deter mined by [facility]. It has not been clear ed or appro annita by the Food and Drug Admin istra tion. Not Available [facility] ([facility]) [address] [place], [address], 03/11/2025 17:10:20 03/07/20 25 03/11/2025 PREGN DANIEL DRUG PROFI LE, UR, 16 buprenorphin e, urine NEGATI VE NG/mL cutoff =10 Not Available [facility] ([facility]) [address] [place], [address], 03/11/2025 17:10:20 03/07/20 25 03/11/2025 PREGN DANIEL DRUG PROFI LE, UR, 16 cotinine NEGATI VE NG/mL cutoff =500 Not Available [facility] ([facility]) [address] [place], [address], 03/11/2025 17:10:20 03/07/20 25 03/11/2025 PREGN DANIEL DRUG PROFI LE, UR, 16 creatinine, urine 180.1 mg/dL 20.0-3 00.0 Not Available [facility] ([facility]) [address] [place], [address], 03/11/2025 17:10:20 03/07/20 25 03/11/2025 PREGN DANIEL DRUG PROFI LE, UR, 16 pH, urine 5.5 4.5-8. 9 Not Available [facility] ([facility]) [address] [place], [address], 03/11/2025 17:10:20 03/07/20 25 03/09/2025 HEMOG LOBIN A1C hemoglobin A1C - % Test not perfo rmed. No laven joshua top tube submi tted. Predi abete s: 5.7 - 6.4 Diabe dipika: >6.4 Glyce montse contr ol for adult s with diabe dipika: <7.0 Not Available [facility] ([facility]) [address] [place], [address], 03/11/2025 17:10:21 03/07/20 25 03/10/2025 RESUL T result 1 Commen t Cultu re shows less than 10,00 0 colon y formi ng units of bacte manda per emre liter of urine . This colon y count is not gener ally consi dered to be clini susannah stewart bean. Not Available [facility] ([facility]) [address] [facility], [place], [address], 03/11/2025 17:10:22 03/07/20 25 03/10/2025 VARIC PATRICE- ZOSTE R V AB, IGG varicella zoster IgG - Test not perfo rmed. No speci men recei annita. Ple ase note refer ence inter henok gallegos e A React nohemi resul t is consi dered evide nce of immun ity to VZV. React nohemi indic ates that VZV IgG was detec basil consi stent with previ ous infec tion and/o r vacci natio n. A Non React nohemi resul t indic ates that VZV IgG was not detec baisl sugge sting that immun ity has not been acqui red. Not Available [facility] ([facility]) [address] [facility], [place], [address], 03/11/2025 17:10:22 03/07/20 25 03/07/2025 HbA1c (hemo globi n A1c), blood HbA1C 9.5 % Not Available In-Office Order Internal Use Only DO Not Attach Compendium DO Not Attach Compendium, Do Not Delete/merge, [id number] 03/07/2025 18:06:04 03/07/20 25 03/07/2025 pregn daniel test, urine HCG positi ve Not Available In-Office Order Internal Use Only DO Not Attach Compendium DO Not Attach Compendium, Do Not Delete/merge, [id number] 03/07/2025 17:17:04 03/10/20 25 03/10/2025 URINE PREGN DANIEL TEST urine test POSITI VE VERY DILUT E URINE SPECI MENS MAY NOT CONTA IN REPRE SENTA TIVE LEVEL S OF HCG. IF PREGN DANIEL IS STILL SUSPE CTED, A SERUM HCG TEST IS RECOM [place] Not Available [facility] (Lab) [place], [address], 03/10/2025 18:12:04 03/10/2003/10/2025 SERUM PREGN DANIEL TEST serum test POSITI VE Not Available [facility] (Lab) [place], [address], 03/10/2025 18:30:58 03/10/20 25 03/14/2025 VZV VIRUS AB (IGM) vzv antibody (IgM) <=0.90 Refer ence Range : <=0.9 0 < or = 0.90 Negat nohemi 0.91 - 1.09 Equiv ocal > or = 1.10 Posit nohemi Resul ts from any one IgM assay shoul d not be used as a sole deter minan t of a curre nt or recen t infec tion. Becau se an IgM test can yield false posit nohemi resul ts and low level s of IgM antib yanqiue may persi st for more than 12 month s post infec tion, relia nce on a singl e test resul t could be misle ading . If an acute infec tion is suspe cted, consi joshua obtai gilmar a new speci men and submi t for both IgG and IgM testi ng in two or more weeks . Test Perfo rmed by [facility] Jana, [facility], [address] [facility] , [place], [place] Ed Weems M.D., Ph.D. , [facility] es , CLIA [id number] Not Available [facility] (Lab) [place], [address], 03/14/2025 15:34:41 03/10/20 25 03/14/2025 QUAD SCREE N collection date (mm/dd/yyyy) 2024 Not Available [facility] (Lab) [address], [place], [address], 03/29/2025 09:40:45 03/10/20 25 03/21/2025 QUAD SCREE N interpretati on REPORT Scree n posit nohemi for DS # Triso my 18. Scree n negat nohemi for open NTD. Not Available [facility] (Lab) [address], [place], [address], 03/29/2025 09:40:45 03/10/20 25 03/21/2025 QUAD SCREE N risk for ontd UNAVAI LABLE Not Available [facility] (Lab) [address] [facility], [place], [address], 03/29/2025 09:40:45 03/10/20 25 03/21/2025 QUAD SCREE N age risk down syndrome 1:129 Not Available [facility] (Lab) [address] [facility], [place], [address], 03/29/2025 09:40:45 03/10/20 25 03/21/2025 QUAD SCREE N sergey down syndrome risk >1:10 high Refer ence Range : <1:27 0 Not Available [facility] (Lab) [address] [facility], [place], [address], 03/29/2025 09:40:45 03/10/20 25 03/21/2025 QUAD SCREE N sergey trisomy 18 risk 1:98 high Refer ence Range : <1:10 0 Not Available [facility] (Lab) [address], [place], [address], 03/29/2025 09:40:45 03/10/20 25 03/21/2025 QUAD SCREE N AFP, serum 5.5 Unit: ng/mL Not Available [facility] (Lab) [address] [facility], [place], [address], 03/29/2025 09:40:45 03/10/20 25 03/21/2025 QUAD SCREE N AFP MOM 0.07 Refer ence Range : <2.50 IDD <1.90 TWINS <4.00 TWINS IDD <3.50 TRIPL ETS <4.50 Not Available [facility] (Lab) [address], [place], [address], 03/29/2025 09:40:45 03/10/20 25 03/21/2025 QUAD SCREE N estriol, free 0.23 Unit: ng/mL Not Available [facility] (Lab) [place], [address], 03/29/2025 09:40:45 03/10/20 25 03/21/2025 QUAD SCREE N estriol MOM 0.08 Not Available [facility] (Lab) [address], [place], [address], 03/29/2025 09:40:45 03/10/20 25 03/21/2025 QUAD SCREE N HCG, serum 62.6 Unit: IU/mL Not Available [facility] (Lab) [place], [address], 03/29/2025 09:40:45 03/10/20 25 03/21/2025 QUAD SCREE N HCG MOM 3.82 Not Available [facility] (Lab) [place], [address], 03/29/2025 09:40:45 03/10/20 25 03/21/2025 QUAD SCREE N inhibin A, dimeric 203 Unit: pg/mL Not Available [facility] (Lab) [address] [facility], [place], [address], 03/29/2025 09:40:45 03/10/20 25 03/21/2025 QUAD SCREE N inhibin A MOM 0.93 RISKS FOR NTDs ARE ONLY CALCU LATED FOR GESTA IAN L WEEKS 15.0 to 21.9. THE MoM VALUE IS ALWAY S THE MORE APPRO PRIAT E NUMBE R TO USE WHEN DETER MININ G KAREN LCY OR ELEVA TIONS IN THE MSAFP TEST. The patie nt is consi dered to be at incre ased risk for havin g a child with Down syndr ome. The patie nt is also at incre ased risk for havin g a child with Triso my 18. Clini dulce follo w-up, inclu ding high resol ution ultra sound , sanjana ic couns eling and consi derat ion of amnio cente sis, is recom louis d. While women 35 years or older at the time of deliv humaira have the highe st risk of havin g a child with Down syndr ome, curre nt Ameri can Colle ge of Obste trics and Gynec ology guide lines ([employer]er 2007 v109 p217- 227) recom mend that mate rnal age alone no longe r be used as a cut-o ff to deter mine who is offer ed scree gilmar versu s who is offer ed invas nohemi testi ng. Sanjana ic couns eling may be consi dered . This is a scree gilmar test, not a diagn ostic test. This risk asses sment is based on demog raphi c data provi ded by the order ing physi damaris. Pleas e notif y the labor atory promp tly if any data are incor rect. It has been obser annita that patie nts who smoke cigar ettes durin g pregn daniel may have a sligh tly incre ased risk of havin g a false posit nohemi SERGEY scree n for Down Syndr ome or triso my 18. It has been obser annita that patie nts whose pregn daniel is the resul t of IVF may have a sligh tly incre ased risk of havin g a false posit nohemi SERGEY scree n for Down syndr ome or triso my 18. If you have quest ions manan rning this repor t: For Clini dulce Consu ltati field artillery cannoneer -GENE -INFO ([phone]) For Techn ical/ Recal culat ions call [phone], ext. [phone]; FAX [phone] Inter preti ve Cutof fs Scree n Posit nohemi for Open NTD: > or = 2.50 adjus basil MOM > or = 1.90 adjus basil MOM for insul in- depen dent Diabe tics > or = 4.00 adjus basil MOM for twins > or = 3.50 adjus basil MOM for twins insul in- depen dent diabe tics > or = 4.50 adjus basil MOM for tripl ets Scree n Posit nohemi for Down Syndr ome: SERGEY Down Syndr ome Risk that equal s or excee ds 1 in 270 Scree n Posit nohemi for Triso my 18: SERGEY Triso my 18 Risk that equal s or excee ds 1 in 100 For addit ional infor will helton e refer to http: //[facility] gabrielle bernardoque stdia gnost ics.c om/fa q/FAQ 97 (This link is being provi ded for infor cynthia mcmullen/e ducat ional purpo ses only. ) Not Available [facility] (Lab) [place], [address], 03/29/2025 09:40:45 03/10/20 25 03/21/2025 QUAD SCREE N calc'd gestational age 22.6 Not Available [facility] (Lab) [address] [facility], [place], [address], 03/29/2025 09:40:45 03/10/20 25 03/21/2025 QUAD SCREE N IVF N Test perfo rmed by [facility] [id number], [place] [address] Phone : [phone] Medic al Direc tor: Maureen lima MD,PH D,PHUC Test Repor basil by Ana , Jana ortiz, [facility] [address] [facility] , [place], [place] Ed Weems M.D., Ph.D. , [facility] es , CLIA [id number] Not Available [facility] (Lab) [address] [facility], [place], [address], 03/29/2025 09:40:45 03/10/2003/29/2025 QUAD SCREE N date of (mm/dd/yyyy) 983 Not Available [facility] (Lab) [address] [facility], [place], [address], 03/29/2025 09:40:45 03/10/20 25 03/29/2025 QUAD SCREE N maternal weight (lbs) 162 Not Available [facility] (Lab) [address] [facility], [place], [address], 03/29/2025 09:40:45 03/10/2003/29/2025 QUAD SCREE N est'd date del (mm/dd/yyyy) 2024 Not Available [facility] (Lab) [address] [facility], [place], [address], 03/29/2025 09:40:45 03/10/2003/29/2025 QUAD SCREE N brian determined by (U/L/P) L Not Available [facility] (Lab) [address] [facility], [place], [address], 03/29/2025 09:40:45 03/10/20 25 03/29/2025 QUAD SCREE N mother's ethnc org (B/w/A/H/O) H Not Available [facility] (Lab) [address] [place], [address], 03/29/2025 09:40:45 03/10/20 25 03/29/2025 QUAD SCREE N number of fetuses (1/2/3/4/5) 1 Not Available [facility] (Lab) [address], [place], [address], 03/29/2025 09:40:45 03/10/20 25 03/29/2025 QUAD SCREE N insulin depend diabetic (Y/N) Y Not Available [facility] (Lab) [address] [place], [address], 03/29/2025 09:40:45 03/10/20 25 03/29/2025 QUAD SCREE N repeat specimen (Y/N) N Not Available [facility] (Lab) [place], [address], 03/29/2025 09:40:45 03/10/20 25 03/29/2025 QUAD SCREE N Hx of neural tube defects(Y/N) N Not Available [facility] (Lab) [address], [place], [address], 03/29/2025 09:40:45 03/10/20 25 03/29/2025 QUAD SCREE N brief history (ntd) NG Not Available [facility] (Lab) [place], [address], 03/29/2025 09:40:45 03/10/20 25 03/29/2025 QUAD SCREE N prev down synd (Y/N) N Not Available [facility] (Lab) [address], [place], [address], 03/29/2025 09:40:45 03/10/20 25 03/29/2025 QUAD SCREE N donor age: egg retrieval N Not Available [facility] (Lab) [address], [place], [address], 03/29/2025 09:40:45 03/10/20 25 03/29/2025 QUAD SCREE N donor egg (Y/N) N Not Available [facility] (Lab) [place], [address], 03/29/2025 09:40:45 03/10/20 25 03/29/2025 QUAD SCREE N cigarette smoker (Y/N) N Not Available [facility] (Lab) [address], [place], [address], 03/29/2025 09:40:45 03/10/20 25 03/29/2025 First and Secon d trime ster integ rated mater nal scree n panel date 983 Not Available Not Available 11:49:56 03/10/20 25 03/29/2025 First and Secon d trime ster integ rated mater nal scree n panel collection date of specimen 2024 Not Available Not Available 11:49:56 03/10/20 25 03/29/2025 First and Secon d trime ster integ rated mater nal scree n panel body weight stated 162 Not Available Not Available 05/2025 11:49:56 03/10/20 25 03/29/2025 First and Secon d trime ster integ rated mater nal scree n panel delivery date estimated 2024 Not Available Not Available 11:49:56 03/10/20 25 03/29/2025 First and Secon d trime ster integ rated mater nal scree n panel gestational age method L Not Available Not Available 0 03/30/2025 11:49:56 03/10/20 25 03/29/2025 First and Secon d trime ster integ rated mater nal scree n panel ethnic background stated H Not Available Not Available 05/2025 11:49:56 03/10/20 25 03/29/2025 First and Secon d trime ster integ rated mater nal scree n panel number of fetuses by US 1 Not Available Not Available 05/2025 11:49:56 03/10/20 25 03/29/2025 First and Secon d trime ster integ rated mater nal scree n panel insulin dependent diabetes mellitus [presence] Y Not Available Not Available 0 03/30/2025 11:49:56 03/10/20 25 03/29/2025 First and Secon d trime ster integ rated mater nal scree n panel clinical information N Not Available Not Available 03/30/2025 11:49:56 03/10/20 25 03/29/2025 First and Secon d trime ster integ rated mater nal scree n panel history of neural tube defect narrative N Not Available Not Available 11:49:56 03/10/20 25 03/29/2025 First and Secon d trime ster integ rated mater nal scree n panel brief history NG Not Available Not Available 05/2025 11:49:56 03/10/20 25 03/29/2025 First and Secon d trime ster integ rated mater nal scree n panel history of trisomy 21 narrative N Not Available Not Available 11:49:56 03/10/20 25 03/29/2025 First and Secon d trime ster integ rated mater nal scree n panel age N Not Available Not Availa ble 03/30/2025 11:49:56 03/10/20 25 03/29/2025 First and Secon d trime ster integ rated mater nal scree n panel donated egg [presence] N Not Available Not Available 0 03/30/2025 11:49:56 03/10/20 25 03/29/2025 First and Secon d trime ster integ rated mater nal scree n panel current smoker N Not Available Not Available 05/2025 11:49:56 03/10/20 25 03/29/2025 First and Secon d trime ster integ rated mater nal scree n panel first and second trimester integrated maternal screen [interpretat ion] REPORT Scree n posit nohemi for DS # Triso my 18. Scree n negat nohemi for open NTD. Not Available Not Available 03/30/2025 11:49:56 03/10/20 25 03/29/2025 First and Secon d trime ster integ rated mater nal scree n panel service comment UNAVAI LABLE Not Available Not Available 11:49:56 03/10/20 25 03/29/2025 First and Secon d trime ster integ rated mater nal scree n panel trisomy 21 risk based on maternal age+alpha-1- fetoprotein+ choriogonado tropin+estri ol.unconjuga basil [likelihood] in fetus 1:129 Not Available Not Available 05/2025 11:49:56 03/10/20 25 03/29/2025 First and Secon d trime ster integ rated mater nal scree n panel trisomy 18 risk [likelihood] in fetus >1:10 text: <1:270 high Not Available Not Available 03/30/2025 11:49:56 03/10/20 25 03/29/2025 First and Secon d trime ster integ rated mater nal scree n panel trisomy 18 risk [likelihood] in fetus 1:98 text: <1:100 high Not Available Not Available 03/30/2025 11:49:56 03/10/20 25 03/29/2025 First and Secon d trime ster integ rated mater nal scree n panel [id number] protein [mass/volume ] in serum or plasma 5.5 NG/mL Not Available Not Available 11:49:56 03/10/20 25 03/29/2025 First and Secon d trime ster integ rated mater nal scree n panel [id number] protein [multiple of the median] in serum or plasma 0.07 Refer ence Range : <2.50 IDD <1.90 TWINS <4.00 TWINS IDD <3.50 TRIPL ETS <4.50 Not Available Not Available 03/30/2025 11:49:56 03/10/20 25 03/29/2025 First and Secon d trime ster integ rated mater nal scree n panel estriol (E3).unconju gated [mass/volume ] in serum or plasma 0.23 NG/mL Not Available Not Available 11:49:56 03/10/20 25 03/29/2025 First and Secon d trime ster integ rated mater nal scree n panel estriol (E3).unconju gated [multiple of the median] adjusted in serum or plasma 0.08 Not Available Not Available 05/2025 11:49:56 03/10/20 25 03/29/2025 First and Secon d trime ster integ rated mater nal scree n panel choriogonado tropin.beta subunit [units/volum e] in serum or plasma 62.6 text: IU/mL Not Available Not Available 03/30/2025 11:49:56 03/10/20 25 03/29/2025 First and Secon d trime ster integ rated mater nal scree n panel HCG MOM 3.82 Not Available Not Availa ble 03/30/2025 11:49:56 03/10/20 25 03/29/2025 First and Secon d trime ster integ rated mater nal scree n panel inhibin A [mass/volume ] in serum or plasma 203 pg/mL Not Available Not Available 11:49:56 03/10/20 25 03/29/2025 First and Secon d trime ster integ rated mater nal scree n panel inhibin A [multiple of the median] adjusted in serum or plasma 0.93 RISKS FOR NTDs ARE ONLY CALCU LATED FOR GESTA IAN L WEEKS 15.0 to 21.9. THE MoM VALUE IS ALWAY S THE MORE APPRO PRIAT E NUMBE R TO USE WHEN DETER MININ G KAREN LCY OR ELEVA TIONS IN THE MSAFP TEST. The patie nt is consi dered to be at incre ased risk for havin g a child with Down syndr ome. The patie nt is also at incre ased risk for havin g a child with Triso my 18. Clini dulce follo w-up, inclu ding high resol ution ultra sound , sanjana ic couns eling and consi derat ion of amnio cente sis, is recom louis connolly. While women 35 years or older at the time of deliv humaira have the highe st risk of havin g a child with Down syndr ome, diogenes nt Ling can Colle ge of Obste trics and Gynec ology guide lines (Canopy Stringer 2007 v109 p217- 227) recom mend that mate rnal age alone no longe r be used as a cut-o ff to deter mine who is offer ed scree gilmar versu s who is offer ed invas nohemi testi ng. Sanjana ic couns eling may be consi dered . This is a scree gilmar test, not a diagn ostic test. This risk asses sment is based on demog raphi c data provi ded by the order ing physi damaris. Pleas e notif y the labor atory promp tly if any data are incor rect. It has been obser annita that patie nts who smoke cigar ettes durin g pregn daniel may have a sligh tly incre ased risk of havin g a false posit nohemi SERGEY scree n for Down Syndr ome or triso my 18. It has been obser annita that patie nts whose pregn daniel is the resul t of IVF may have a sligh tly incre ased risk of havin g a false posit nohemi SERGEY scree n for Down syndr ome or triso my 18. If you have quest ions manan rning this repor t: For Clini dulce Consu ltati field artillery cannoneer -GENE -INFO [phone]) For Techn ical/ Recal culat ions call -[phone], ext. [phone]; FAX [phone] Inter preti ve Cutof fs Scree n Posit nohemi for Open NTD: > or = 2.50 adjus basil MOM > or = 1.90 adjus basil MOM for insul in- depen dent Diabe tics > or = 4.00 adjus basil MOM for twins > or = 3.50 adjus basil MOM for twins insul in- depen dent diabe tics > or = 4.50 adjus basil MOM for tripl ets Scree n Posit nohemi for Down Syndr ome: SERGEY Down Syndr ome Risk that equal s or excee ds 1 in 270 Scree n Posit nohemi for Triso my 18: SERGEY Triso my 18 Risk that equal s or excee ds 1 in 100 For addit ional infor matmago n, pleas e refer to http: //[facility] gabrielle bernardoque stdia gnost ics.c om/fa q/FAQ 97 (This link is being provi ded for infor matio nal/e ducat ional purpo ses only. ) Not Available Not Available 03/30/2025 11:49:56 03/10/2003/29/2025 First and Secon d trime ster integ rated mater nal scree n panel gestational age estimated 22.6 Not Available Not Available 11:49:56 03/10/20 25 03/29/2025 First and Secon d trime ster integ rated mater nal scree n panel result of IVF N Test perfo rmed by [facility] [address] [place] [address] Phone : [phone] Medic al Direc tor: Maureen lima MD,PH D,PHUC Test Repor basil by Jana Perez, [facility], [address] [facility] , [place], [place] Patcarson Weems M.D., Ph.D. , [facility] tor of Labor atori es [phone], CLIA [id number] Not Available Not Available 03/30/2025 11:49:56 03/10/2003/29/2025 First and Secon d trime ster integ rated mater nal scree n panel interpretati on and review of laboratory results Abnorm al Not Available Not Available 11:49:56 03/10/20 25 03/14/2025 Varic patrice zoste r virus IgM Ab [Unit s/vol ume] in Serum by Immun oassa y varicella zoster virus IgM Ab [units/volum e] in serum by immunoassay <=0.90 high: 0.9 < or = 0.90 Negat nohemi 0.91 - 1.09 Equiv ocal > or = 1.10 Posit nohemi Resul ts from any one IgM assay shoul d not be used as a sole deter minan t of a curre nt or recen t infec tion. Becau se an IgM test can yield false posit nohemi resul ts and low level s of IgM antib yanique may persi st for more than 12 month s post infec tion, relia nce on a singl e test resul t could be misle ading . If an acute infec tion is suspe cted, consi joshua obtai gilmar a new speci men and submi t for both IgG and IgM testi ng in two or more weeks . Test Perfo rmed by Jana Perez, [facility], [address] [facility] , [facility] [place] Ed Weems M.D., Ph.D. , [facility] Labor atori es , CLIA [id number] Not Available Not Available 03/17/2025 09:56:39 03/10/2003/10/2025 Chori ogona dotro pin [Pres ence] in Serum or Plasm a choriogonado tropin [presence] in serum or plasma POSITI VE Not Available Not Available 09:56:39 03/10/2003/14/2025 Chori ogona dotro pin [Pres ence] in Urine choriogonado tropin [presence] in urine DUPLIC ATE ORDER CORRE CTED ON 03/14 AT 1309: PREVI OUSLY REPOR BASIL POSIT NOHEMI VERY DILUT E URINE SPECI MENS MAY NOT CONTA IN REPRE SENTA TIVE LEVEL S OF HCG. IF PREGN DANIEL IS STILL SUSPE CTED, A SERUM HCG TEST IS RECOM LOUIS D. Not Available Not Available 03/17/2025 09:56:39 03/10/20 25 03/14/2025 Chori ogona dotro pin [Pres ence] in Urine specific gravity of urine DUPLIC ATE ORDER Not Available Not Available 09:56:39 03/14/20 25 03/07/2025 US, obste tric, mater nal evalu ation + anato my No observ ation record ed. TYRESE Not Available 2024 10:11:46 Result Notes None recorded. Problems Name Problem SNOMED Code Status Onset Date Resolution Date Notes Provider Name and Address Organization Details Recorded Time Multigravida of advanced maternal age 784621249 Active Soha Kaur RN null, [facility] 5 17:31:12 Body mass index 25-29 - overweight 294195467 Active 2023 [facility] Attn: Accounting ,[address] [place], [address] , [facility] 4 15:57:07 Type 2 diabetes mellitus 56880190 [facility]n: Accounting ,[address] [place], [address] , [facility] 4 15:57:07 Past history of gestational diabetes mellitus 538520529 [facility] 2023 [facility] Attn: Accounting ,[address] [place], [address] , [facility] 4 15:57:07 Mixed hyperlipidemi a 670642056 Active 2023 Kaia Kaba [facility] Attn: Accounting ,[address] [place], [address] , [facility] 4 15:57:07 17497602 Active 2024 Soha Kaur RN null, [facility] 5 15:13:02 Problem Notes None recorded. Medical Equipment None Reported. Allergies No known drug allergies Medications Name Sig Start Date Stop Date Status Note LastModified by Organization Details LastModified Time atorvastati n 40 mg tablet TAKE 1 TABLET BY MOUTH ONCE DAILY active Not Available Not Available No t Available metformin 500 mg tablet TAKE 1 TABLET BY MOUTH TWICE DAILY FOR DIABETES active Not Available Not Available No t Available clotrimazol e 1 % vaginal cream Insert 1 applicato rful every day by vaginal route for 7 days, for vaginitis . 08/16 completed Not Available Not Available Not Available aspirin 81 mg tablet,kaleigh yed release TAKE 1 TABLET BY MOUTH ONCE DAILY active Not Available Not Available No t Available metformin 1,000 mg tablet TAKE 1 TABLET BY MOUTH TWICE DAILY FOR 90 DAYS FOR DIABETES active Not Available Not Available No t Available metformin ER 500 mg tablet,exte nded release 24 hr TAKE 1 TABLET BY MOUTH TWICE DAILY 12/20 completed Not Available Not Available Not Available nitrofurant oin monohydrate /macrocryst als 100 mg capsule TAKE 1 CAPSULE BY MOUTH EVERY 12 HOURS FOR URINARY INFECTION FOR 7 DAYS 08/16 completed Not Available Not Available Not Available Lantus Solostar U-100 Insulin 100 unit/mL (3 mL) subcutaneou s pen INJECT 10 UNITS SUBCUTANE OUSLY ONCE DAILY AT BEDTIME FOR DIABETES active Not Available Not Available No t Available 28 mg iron-800 mcg tablet TAKE 1 TABLET BY MOUTH ONCE DAILY active Not Available Not Available No t Available Ultra Thin Lancets 30 gauge USE 1 LANCET TO CHECK GLUCOSE 4 TIMES DAILY active Not Available Not Available No t Available Jardiance 10 mg tablet TAKE 1 TABLET BY MOUTH ONCE DAILY active Not Available Not Available No t Available Premier Test Strip USE 1 STRIP 4 TIMES DAILY TO CHECK BLOOD SUGARS active Not Available Not Available No t Available Vitals Date Recorded Body height Body mass index (BMI) Body weight Oxygen saturation Heart rate Body temperature Systolic And Diastolic Provider Name and Address Organization Details Last Updated DateTime 5 165.74 cm 27.3 kg/m2 89766.5 4 g 97 % 66 /min 97.6 [degF] 122/74 mm[Hg] Prachi Martin [place] [facility] 14:35:41 Date Recorded Body height Provider Name an d Address Organization Details Last Updated DateTime 12/29/2024 165.74 cm Prachi zayas [place] [facility] 12/29/2024 16:54:44 Date Recorded Body height Body weight Heart rate Systolic And Diastolic Provider Name and Address Organization Details Last Updated DateTime 03/07/2025 165.74 cm 25515.478 599 g 76 /min 126/80 mm[Hg] Marielena Das MA [facility] 03/07/2025 17:09:08 Date Recorded Body height Provider Name an d Address Organization Details Last Updated DateTime 06/22/2024 165.74 cm Malika Tanya vikasJUDE [facility] 06/22/2024 10:05:57 Date Recorded Body height Body mass index (BMI) Body weight Body temperature Oxygen saturation Heart rate Systolic And Diastolic Provider Name and Address Organization Details Last Updated DateTime 165.74 cm 27.4 kg/m2 87762.3 3 g 97.2 [degF] 97 % 70 /min 110/70 mm[Hg] Malika Tanya vikasJUDE [facility] 15:45:42 Social History Question Answer Notes LastModified by Organizat ion Details LastModified Time Tobacco Smoking Status Never Smoker Prachi Martin MA null, [facility] 06/16/2024 14:52:11 Do You Have An Advance Directive? No Information n ot available 06/16/2024 Are You Blind Or Do You Have Difficulty Seeing? No Information n ot available 06/16/2024 What Is Your Level Of Caffeine Consumption? None Information not available 06/16/2024 In The 14 Days Before Symptom Onset, Have You Had Close Contact With A Laboratory-confirm ed COVID-19 While That Case Was Ill? No Information n ot available 06/16/2024 In The 14 Days Before Symptom Onset, Have You Had Close Contact With A Person Who Is Under Investigation For COVID-19 While That Person Was Ill? No Information not available 06/16/2024 Have You Been To An Area Known To Be High Risk For COVID-19? No Information not available 06/16/2024 Are You Deaf Or Do You Have Serious Difficulty Hearing? No Information not available 06/16/2024 What Type Of Diet Are You Following? REGULAR Information n ot available 06/16/2024 Are There Any Guns Present In Your Home? No Information not available 06/16/2024 What Was The Date Of Your Most Recent Tobacco Screening? 03/07/2025 aphillipsma Information not available 03/07/2025 How Many Children Do You Have? 1 Information not available 06/16/2024 Do You Use Protection During Sex? No Information not available 06/16/2024 What Is Your Relationship Status? Domestic Partner Information not available 06/16/2024 Do You Use Your Seat Belt Or Car Seat Routinely? Yes Information not available 06/16/2024 Are You Sexually Active? Yes Information not available 06/16/2024 Do You Have Smoke And Carbon Monoxide Detectors In Your Home? Yes Information not available 06/16/2024 Are You Passively Exposed To Smoke? No Information no t available 06/16/2024 Do You Use Sunscreen Routinely? No Information not available 06/16/2024 Has Tobacco Cessation Counseling Been Provided? No Information not available 06/16/2024 Sex: Female Functional Status Question Answer Note LastModified by Organizat ion Details LastModified Time Do you use any illicit or recreational drugs? No Information not available 06/16/2024 Do you or have you ever used any other forms of tobacco or nicotine? No Information not available 06/16/2024 What is your level of alcohol consumption? None Information not available 06/16/2024 Are you currently employed? No Information not available 06/16/2024 Are you able to care for yourself independently? Yes Information not available 06/16/2024 What is your exercise level? None Information not available 06/16/2024 Mental Status Question Answer Note LastModified by Organization D etails LastModified Time Do you feel stressed (tense, restless, nervous, or anxious, or unable to sleep at night)? [id number] Information not available 06/16/2024 Family History Relationship Description Onset Age of this Age Resolved Age Notes LastModified by Organization Details LastModified Time Father No current problems or disability [email or web address] Not available 14:52:03 Mother No current problems or disability [email or web address] Not available 14:52:03 Mother Diabetes mellitus [email or web address] Not available 15:13:23 Sister Diabetes mellitus [email or web address] Not available 15:13:31 Paternal Grandfather Hypertensive disorder 83 [email or web address] Not available 2023 15:46:48 Medical History Condition Response Other Y Gynecological History Statement/Question Response Flow Moderate Date of LMP 12/06/2024 Frequency of Cycle (Q days) 28 Menses Monthly Y Duration of Flow (days) 5 Age at Menarche 14 Current Control Method Condoms Age at First Child 38 LMP Definite Obstetrics History GPAL:G 2 P 1 0 0 1 Type Value Full Term 1 Living 1 Total 2 Immunizations Vaccine Type Date Status Note Provider Nam e and Address Organization Details Recorded Time Tdap 4 completed JUDE [place], [place] [facility] 06/16/2024 15:24:40 Tdap 4 completed RYLEE Nolan Attn: Accounting,[address] [place], [address], [place] - [facility] 06/16/2024 15:26:02 Influenza, split virus, trivalent, preservative 4 completed JUDE [place], [place] [facility] 08/16/2024 16:56:10 Pneumococcal conjugate PCV20, polysaccharide [id number] conjugate, adjuvant, PF 5 completed JUDE [place], [place] - [facility] 12/20/2024 15:09:22 Past Encounters Encounter ID Performer Location Encounter Start Date Encounter Closed Date Diagnosis/Indication Diagnosis SNOMED-CT Code Diagnosis ICD10 Code Diagnosis IMO Codes Diagnosis Note [id number] Esdras Roman MD [facility] [address] [place] [address] 06/16/2024 14:50:32 06/23/2024 14:14:49 Adult health examination 564890458 Z00.00 38 y/o HF presents for general check up. The patient has a history od GDM during her first and only . She used insulin to control her DM. Since delivery she denies any polys. She does c/o perineum itching but no vaginal discharge. Body mass index 25-29 - overweight 413984300 Z68.27 BMI 27.7Ht 5' 5.25 Healthy weight range 115-155 Depression screening 171 664866 Z13.31 negative Hyperlipid emia screening 524958979 Z13.220 Past pregn daniel history of gestational diabetes mellitus 798275812 Z86.32 Vaginitis 19051200 N76.0 Influenza vaccination declined 267877657 Z28.21 Secondary amenorrhea 156 583678 N91.1 Had normal menses 05/11/2024 Type 2 raine betes mellitus 90788949 E11.9 06/16/2024 Random accucheck 488 2 hrs PPHA1c 13START TREATMENTM etformin ER 500mg bidmonitor blood sugars fasting and 2 hours PP keep a log bring to next appointmen tHypoglyce miaHypergl ycemia [id number] Esdras Roman MD [facility] [address], [place] [address] 06/22/2024 10:02:45 06/24/2024 16:07:55 Laboratory test result abnormal 651034029 R89.9 Mixed hyperlipidemia 267 901804 E78.2 06/16/2024 cho 170trig 647HDL 30LDL 124Avoid all breads, potatoes, cereal, pasta, rice, margarine, refined sugars, milk yogurt, ice cream, juices, soda (including diet), beer, and manmade or manufactur ed desserts. Enjoy steak, fish, chicken (no skin), pork, butter, vegetables , beans, nuts, whole eggs, cheese (low fat or skim), cream in your coffee.sta rt Rx atorvastat in 40mg qd Acute urin chepe tract infection 549312660 N39.0 [id number] Esdras Roman MD [facility] [address], [place] [address] 08/16/2024 15:26:28 08/18/2024 14:09:27 Type 2 diabetes mellitus 99946519 E11.9 06/16/2024 Random accucheck 488 2 hrs PPHA1c 13STARTed on TREATMENT1 10/16/2023 HA1C 10.9Metfor min ER 500mg bidmonitor blood sugars fasting and 2 hours PP keep a log bring to next appointmen tHypoglyjaleel Burroughspergl ycemia Body mass index 25-29 - overweight 628232239 Z68.27 BMI 27.4Ht 5' 5.25 Healthy weight range 115-155 Mixed hyperlipidemia 267 177630 E78.2 06/16/2024 cho 170trig 647HDL 30LDL 124Avoid all breads, potatoes, cereal, pasta, rice, margarine, refined sugars, milk yogurt, ice cream, juices, soda (including diet), beer, and manmade or manufactur ed desserts. Enjoy steak, fish, chicken (no skin), pork, butter, vegetables , beans, nuts, whole eggs, cheese (low fat or skim), cream in your coffee.sta rt Rx atorvastat in 40mg qd Administra tion of influenza vaccine 88343545 Z23 [id number] Kaylee Domínguez MD [facility] [address] [place] [address] 12/20/2024 14:18:55 12/22/2024 15:21:11 Body mass index 25-29 - overweight 886280135 Z68.27 Type 2 raine betes mellitus 63150119 E11.9 Last A1C:Today 10.7 (12/20/24), 10.9 (08/16/24) Goal A1C less than:7.0%C urrent Therapy:Ja rdiance 10mg, Metformin 500 BIDStatin: Atorvastat in 10mgACE/AR B:noFoot Exam:dueNe phropathy Screening: duePneumov ax 23:Prevnar 20 12/20/24Eye Exam:due- recommende d annual dilated eye examPatien t Education: healthy diet:yesex ercise:yes weight loss:yesfo ot care:yesco mplication s of uncontroll ed diabetes:y esmedicati on compliance :yes Keep a food diaryFollo w a healthy heart low fat low cholestero l dietExerci se 50-60 minutes 5-6 times per weekIncrea se water intakeStop concentrat ed sugarsTake your diabetes medication dailyCheck blood sugars fasting and post prandial --keep a log--bring to next appointmen tStop concentrat ed sugars--fo llow 1500 meal planExerci se 50-60 minutes daily on most daysCheck your feet for sores, cuts, etc.See eye doctor once a yearsee dentist every 6 months Next Visit: 3 month(s)In crease metformin to 1000mg BIDC/w jardiance 10mg Mixed hyperlipidemia 267 428829 E78.2 Labs 06/16/24: cholestero l 170, triglyceri mrery 647, HDL 30, VLDL 129, LDL 124Pt to return for fasting labsC/w atorvastat in 40mg Overweight 645536028 E66 .3 BMI 27.3 Depression screening 171 726107 Z13.31 PHQ9- Negative (0 out of 27) [id number] Kaylee Domínguez MD [facility] [address] [place] [address] 12/29/2024 16:54:11 12/30/2024 09:08:03 Mixed hyperlipidemia 868792191 E78.2 Labs 06/16/24: cholestero l 170, triglyceri merry 647, HDL 30, VLDL 129, LDL 124Pt to return for fasting labsC/w atorvastat in 40mg [id number] Portillo Spann MD [facility] [address] [facility] [address] [place] [address] 03/07/2025 16:27:08 03/14/2025 13:24:48 Routine care 599724281 Z34.90 Assessment :yo female here for routine care.Sanjana ic history reviewed reviewed: yesBirth history reviewed yesSDoH reviewed: noDepressi on Screen (Add score to problem list) :TB Screen: negative Chronic problems: Last Pap: Assess in next visit Pre-pregna ncy BMI:Pre-pr egnancy weight: 162Ibs ASA SCREENINGH igh (1 or more risks)[]Hx of preE[]Mult ifetal gestation[ ]Chronic hypertensi on[x]Type 1 or 2 diabetes[] Renal disease[] Autoimmune disease (Lupus, antiphosph olipid ab syndrome) Moderate (2 or more risks)[]Nu lliparity[ ]Obesity (BMI >30)[]Fami ly history of preE (mother, sister)[x] Sociodemog raphic characteri stics (Black race, low socioecono montse status)[x] Age >35[]Perso nal risk factors (personal hx of low weight or SGA, previous adverse outcome, >10 year interval) 1st Trimester ULTRASOUND (ordered) Date: number: Cardiac Activity/F HR: CRL/Biomet rics Measuremen ts Significan t Findings Adnexa: IUP at EGA: BRIAN: Plan:-Amberly ent appropriat e to be followed by OB-Problem s/SDoH documented on problem list and as below-Imag ing: ordered-La b (IPN orderset): ordered-We ight gain reviewed recommende d: BMI 26-30: 15-25lbs-T otal weight gain goal:-[place] al care reviwed: no-Referra ls: MFM Education given today on[x]Discu ssed avoidance/ cessation of tobacco, alcohol, and drugs[x]St arted vitamin[]E xercise and nutrition reviewed[x ]Reviewed appropriat e weight gain and early diabetes testing if indicated[ ]Discussed management of symptoms including nausea, vomiting, and fatigue[]M omid precaution s reviewed[x ]Reviewed risk and discussed use of aspirin if indicated[ ]Reviewed delivery hospital, residency, and scope of care Overweight 371051990 E66 .3 Diabetes fco palmer in mother complicating , childbirth AND/OR puerperium 34517893 O24.119 59566903 A1c today 9.5- Pt previous was on Metformin. Self discontinu ed 1 month ago when she learned about - Will discontinu e Metformin- Start insulin, Lantus 10U nightly- Will send Glucometer and other DM supplies- Provided sheet in vietnamese for blood glucose log- Explained in details dietary changes and exercise- f/up with OB Multigravi da of advanced maternal age 101787180 O09.529 [id number] MFM referral placed above Gestation period, 16 weeks 04360852 Z3A.16 [id number] Patient presents to establish OB. Labs and US ordered as aboveHowev er given high risk, uncontroll ed DM2 and AMA, will transfer care to OB- Pt prefers referrals and US order go to [place] for convenienc e Health Concerns Section Related Observation LastModified by Organization Detai ls LastModified Time None Recorded Concern Status LastModified by Organization Details LastModified Time None Recorded Advance Directives Directive N: Payers Insurance Date Sequence Insurance Name Policy Number Policy Galloway Covered Member ID Galloway Member ID Guarantor Name 03/07/2025 1 [employer] [place] ON OR AFTER 2020 (MEDICAID REPLACEMENT - HMO) Joana Jiménez [id number] Joana Jiménez Nick 08/16/2024 2 [place] [facility] Joana Jiménez [id number] Joana Jiménez Nick 07/10/2024 1 [employer] [place] ON [place] AFTER 2020 (MEDICAID REPLACEMENT - HMO) Joana Jiménez [id number] Joana Jiménez Nick 03/07/2025 1 *SELF PAY* Jude Jiménez Nick 03/07/2025 SLIDING FEE SCHEDULE - DISCOUNT Joana Jiménez Nick Notes Date Note Type Note Provider Name and Address Organization Details Recorded Time 4 text/html HyperlipidemiaReported by PatientHPIFor type of hyperlipidemia, patient reportscombined. For duration, patient reportsnew onset. For control, patient reportsnot at goal. For compliance, patient reportsnoncompliant,noncomp liant with diet, anddoes not exercise. For risk factors, patient reportsobesity,low hdl level, andhigh lipoprotein(a) level. For prior tests, patient reportshighest cholesterol level:. For complications, patient reportsno coronary artery disease,no peripheral artery disease, andno cardiovascular disease. For current therapy, (will initiate atorvastatin 40mg qd).ROS as noted in the HPI 38 y/o HF recently diagnosed with DM2 on the telephone for abnormal lab results RYLEE Nolan Attn: Accounting,[address] [place], [address], [facility] - [facility] 06/22/2024 17:52:03 4 text/html DiabetesReported by PatientHPIFor control, patient reportsusually poorly controlledandhome blood sugar range highbut reportsimproved since last visit,treated with diet and oral medications,hemoglobin a1c has been greater than 9, andhemoglobin a1c goal is less than 7. For associated symptoms, patient reportsweight gain (3 lbs)but reportsno weight loss,no dizziness,no sweats,no headaches,no confusion,no increased thirst,no increased appetite,no increased urination,no blurred vision,no numbness of feet, andno calluses on feet. For duration, patient reportsnew onset. For onset/timing, patient reportsdiagnosed on: (06/16/2024). For compliance, patient reportscompliant with medications,compliant with follow-up visits,compliant with diet, andcompliant with home glucose monitoring. For self care, patient reportsmonitoring glucose __,seeing eye doctor regularly, andchecking feet regularly.ROS as noted in the HPI 39 y/o HF started on treatment for DM2 on 06/16/2024 after she was found with a random blood sugar of 488 and a HA1C of 13. The patient was started on Metformin ER 500mg 1 po bid and advised on LSM. Her HA1C today is a 10 still elevated and her BS is 203. She voices she is exercising and watching diet. RYLEE Nolan Attn: Accounting,[address] [facility], [place], [address], [facility] 08/16/2024 16:27:22 5 text/html Diabetes F/UReported by PatientHPIFor context, patient reportshome blood sugar range highandmissing doses of medication (ran out of medication 1 month ago). For labs, patient reportslast a1c result: 10.7. For associated symptoms, patient reportsno weight gain,no weight loss,no dizziness,no sweats,no headaches,no confusion,no increased thirst,no increased appetite,no increased urination,no blurred vision,no numbness of feet, andno calluses on feet.ROS as noted in the HPI This is a 39 yo female here today to follow up on diabetes and mixed hyperlipidemia. Denies fever, chills, N/V/D, weight loss, night sweats, vision changes, neuropathy. CINDY WALSH PA-C Attn: Accounting,[address] [facility], [place], [address], [facility] 12/20/2024 15:02:04 5 text/html Patient presents to [facility] States she developed diabetes from the last pregnancyCurrent child is one years oldHad vaginal delivery. Had first baby in [place] States she has nausea, no vomiting. Sometimes has headache.Not currently taking any vitaminsCurrently taking Metformin for diabetes Patient presents for ZAN. Patient denies CP, SOB, WHITMAN, RUQ pain, vision changes, edema, loss of fluids, vaginal bleeding, odor or discharge. Portillo Spann MD Attn: Accounting,[address], [place], [address], [facility] 03/11/2025 12:42:32 OBGyn Episode Ob Episode Information Episode Created Date Number of Fetuses Patient Bloodtype Patient rh Status Prepregnancy Weight lbs Domestic Partner Domestic Partner Phone Father Name Floral Department Specialist Status 03/03/20 25 1 - 162 OPEN Fetus Data First Name Last Name Admitted to NICU Weight (g) Sex Living Outcome Pediatric Complications Fetus ID Race Codes Race Delivery Type [id number] Problems Problem Notes Problem Name Start Date End Date Resolution Snomed Code Not e Multigravida of advanced maternal age [id number] Brian Calculation Initial Brian Date Initial Exam Date Initial Exam Provider Initial Ultrasound Date Last Menstrual Period Date Ultra Sound Weeks Gestation 03/03/2025 11/11/2024 0 Eighteen To Twenty Week Brian Update Ultra Sound Date Fundal Height At Umbil Quickening Date Ultra Sound Latest Weeks Gestation Final Brian Confirmed By Final Brian Confirmed Date Final Brian Date Ultra Sound Latest Days Gestation 0 09/21/20 25 0 Pre- Flowsheet Flowsheet Date 03/03/2025 Simeon Score Blood Edema Fundus Height Fundus Units Glucose Ketones Leukocytes Nitrite Labor Signs Protein Cervic Dilation Cervic Effacement Cervic Station Type Weight in lbs Pre/Post Dialysis Refused BP Diastolic BP Location Tested BP Systolic BP Type Fetus Heart Rate Present Fetus Movement Comments Niece called clinic on behal f of Aunt d/t language barrier to schedule her for a New OB appointment. Patient reports LMP sometime in November, but unsure of exact date. Had a positive home test 3 weeks ago. Patient has no care thus far. Patient delivered last baby via vaginal delivery 02/05/24. Aunt was unsure if patient had a miscarriage or not. This would be the patient's 2nd or 3rd . Flowsheet Date 03/07/2025 Simeon Score Blood Edema Fundus Height Fundus Units Glucose Ketones Leukocytes Nitrite Labor Signs Protein Cervic Dilation Cervic Effacement Cervic Station Type Weight in lbs Pre/Post Dialysis Refused With clothes [id number] BP Diastolic BP Location Tested BP Systolic BP Type 80 L arm 126 sitting Fetus Heart Rate Present A 158 Present Fetus Movement Comments Pt presents for initial OB v isit. Initial OB tests ordered including tetra, formal US. MFM referral placed 2/2 to [facility] and DM2. A1c today was 9.5, re-started Metformin. Given high risk, will transfer care to OB. Referral placed Menstrual History Last Menstrual Date Menses Monthly On Bcp Conception Prior Menses Frequency Hcg Plus Date Menarche Onset Age 0211/11/2024 true 29 5 Genetic Screening And Infection History Question Response Note Patient's Age Will Be 35 Years Or Older At Estim ated Date of Delivery true Thalassemia (Hebrew, Croatian, Mediterranean, Or Background): MCV < 80 false Neural Tube Defect (Meningomyelocele, Spina Bifi da, Or Anencephaly) false Congenital Heart Defect false Down Syndrome false Justin-Sachs (eg, Yarsani, Cajun, Austrian-Hopkins) f alse Alberto Disease false Sickle Cell Disease Or Trait () false Hemophilia Or Other Blood Disorders false Muscular Dystrophy false Cystic Fibrosis false Dundy's Chorea false Mental Retardation/Autism false If Yes, Was Person Tested For Fragile X? false Other Inherited Genetic Or Chromosomal Disorder false Maternal Metabolic Disorder (eg, Type 1 Diabetes , PKU) false Patient Or Baby's Father Had A Child With Defects Not Listed Above false Recurrent Loss, Or A Stillbirth false Medications (including Suppl ements, Vitamins, Herbs, OTC Drugs), Illicit/Recreational Drugs, Alcohol false If Yes, Agent(s) And Strength/Dosage false Any Other Genetic History false Live With Someone With TB Or Exposed To TB false Patient Or Partner Has History Of Genital Herpes false Rash Or Viral Illness Since Last Menstrual Perio d false History Of STD, Gonorrhea, Chlamydia, HPV, Syphi lis false Other Infection History false History of HIV false History of Hepatitis false Prior GBS-infected child false Delivery Information Delivery Date Delivery Type Labor Anesthesia Weeks Gestation Incision Type Labor Labor Length Hrs Delivered By Post Complications Tubal Sterilization Discharge Date Comments Discharge Information Feeding Method Contraceptive Method Maternal HG B and HCT Levels Ob Episode Information Episode Created Date Number of Fetuses Patient Bloodtype Patient rh Status Prepregnancy Weight lbs Domestic Partner Domestic Partner Phone Father Name Floral Department Specialist Status 06/16/20 24 1 CLOSED Fetus Data First Name Last Name Admitted to NICU Weight (g) Sex Living Outcome Pediatric Complications Fetus ID Race Codes Race Delivery Type M Full Term [id number] Vaginal Brian Calculation Initial Brian Date Initial Exam Date Initial Exam Provider Initial Ultrasound Date Last Menstrual Period Date Ultra Sound Weeks Gestation 0 Eighteen To Twenty Week Brian Update Ultra Sound Date Fundal Height At Umbil Quickening Date Ultra Sound Latest Weeks Gestation Final Brian Confirmed By Final Brian Confirmed Date Final Brian Date Ultra Sound Latest Days Gestation 0 0 Menstrual History Last Menstrual Date Menses Monthly On Bcp Conception Prior Menses Frequency Hcg Plus Date Menarche Onset Age Delivery Information Delivery Date Delivery Type Labor Anesthesia Weeks Gestation Incision Type Labor Labor Length Hrs Delivered By Post Complications Tubal Sterilization Discharge Date Comments 4 Discharge Information Feeding Method Contraceptive Method Maternal HG B and HCT Levels
--- OUTSIDE RECORDS SUMMARY | 2025-09-07 18:31 | XMS_ITS | Clinical Summary ---
Author Organization [facility] [employer] Address [address] [facility] [place] [address] Care Team Providers Care Data Warehousing Engineer Name Role Phone Unavailable Primary Care Provider Unavailabl e Source Comments [facility],non-owned Affiliates and Associated Physician Practices is amultiple site organization consisting of ambulatory clinics and hospital sitesin [place], [place], [place] and [place]. This disclosure is being madepursuant to the Care Everywhere program and may not contain all information available regarding this patient. Last updated 18.[facility] [employer] Allergies No known active allergies Medications * Be aware that medications may not be up to date on this document. Alwaysverify current medications with the patient. Vit-DSS-Fe Fum-FA ( vitamin with iron) tabletIndicati ons: Take 1 (one) tablet by mouth once daily Reasons: Active aspirin EC (Ecotrin) 81 MG tablet Take 1 (one) tablet by mouth once daily Active Lancets (ONETOUCH DELICA PLUS 33G EXTRA FINE LANCET)Indicat ions:Type 2 diabetes mellitus affecting in second trimester, antepartum ([facility]) Use 1 Each 4 times daily To check blood glucose 4 times daily during 100 Each 5 06/22/20 25 Active blood glucose (OneTouch Verio) test stripIndicatio ns:Type 2 diabetes mellitus affecting in second trimester, antepartum ([facility]) Use 1 (one) strip 4 times daily 100 strip 5 06/22/20 25 Active Continuous Glucose Sensor (Dexcom G7 Sensor) MISCIndication s:Type 2 diabetes mellitus affecting in second trimester, antepartum ([facility]) Use 1 Each Continuous for 10 days 3 Each 3 08/10/20 25 026 Active Insulin Pen Needle 32G X 4 MM MISCIndication s:Type 2 diabetes mellitus affecting in second trimester, antepartum ([facility]) Use 1 Each 5 times daily 100 Each 5 08/10/20 25 Active insulin glargine (Lantus/Semgle e) 100 units/mL penIndications :Type 2 diabetes mellitus affecting in second trimester, antepartum (HCC) Prime needle with 2 units waste, then inject 18 units every morning and 60 units every night. Increase dose as directed due to increasing insulin requirements during . Max total daily dose of 100 units. 30 mL 1 09/07/20 25 Active insulin lispro (HumaLOG;ADMel og) 100 UNIT/ML penIndications :Type 2 diabetes mellitus affecting in second trimester, antepartum ([facility]) Prime needle with 2 units waste, then inject 4 units with breakfast, 4 units with lunch, and 6 units with dinner. Increase doses as directed due to increasing insulin requirements during . Max total daily dose of 50 units. 15 mL 1 09/07/20 25 Active Insulin Pen Needle 32G X 4 MM MISCIndication s:Type 2 diabetes mellitus affecting in second trimester, antepartum ([facility]) Use 1 Each twice daily, before breakfast & at bedtime. 100 Each 5 06/22/20 25 025 Discontinued insulin glargine (Lantus/Semgle e) 100 units/mL penIndications :Gestational Diabetes Prime needle with 2 units waste, then inject 10 units every morning and 68 units every night. Increase dose as directed due to increasing insulin requirements during . Max total daily dose of 100 units. Reasons: Diabetes During 30 mL 3 07/27/20 25 025 Discontinued insulin lispro (HumaLOG;ADMel og) 100 UNIT/ML penIndications :Type 2 diabetes mellitus affecting in second trimester, antepartum ([facility]) Prime needle with 2 units waste, then inject 4 units with breakfast, 4 units with lunch, and 6 units with dinner. Increase doses as directed due to increasing insulin requirements during . Max total daily dose of 50 units. 15 mL 2 08/10/20 25 025 Discontinued insulin glargine (Lantus/Semgle e) 100 units/mL penIndications :Gestational Diabetes Prime needle with 2 units waste, then inject 18 units every morning and 60 units every night. Increase dose as directed due to increasing insulin requirements during . Max total daily dose of 100 units. Reasons: Diabetes During 30 mL 3 08/10/20 25 025 Discontinued insulin glargine (Lantus/Semgle e) 100 units/mL penIndications :Gestational Diabetes Prime needle with 2 units waste, then inject 26 units every morning and 60 units every night. Increase dose as directed due to increasing insulin requirements during . Max total daily dose of 150 units. Reasons: Diabetes During 45 mL 3 08/16/20 25 025 Discontinued insulin glargine (Lantus/Semgle e) 100 units/mL penIndications :Type 2 diabetes mellitus affecting in second trimester, antepartum (HCC) Prime needle with 2 units waste, then inject 32 units every morning and 68 units every night. Increase dose as directed due to increasing insulin requirements during . Max total daily dose of 150 units. 45 mL 3 08/30/20 25 025 Discontinued insulin lispro (HumaLOG;ADMel og) 100 UNIT/ML penIndications :Type 2 diabetes mellitus affecting in second trimester, antepartum (HCC) Prime needle with 2 units waste, then inject 4 units with breakfast, 6 units with lunch, and 8 units with dinner. Increase doses as directed due to increasing insulin requirements during . Max total daily dose of 50 units. 15 mL 2 08/30/20 25 025 Discontinued Active Problems Problem Noted Date Diagnosed Date Type 2 diabetes mellitus aff ecting in second trimester, antepartum 04/06/2025 Advanced maternal age in multigravida, second tr imester 04/06/2025 Uncertain dates, antepartum, second trimester Estimated Date of Delivery Comme nts Yes 09/21/2025 Based on Ultraso und Encounters Date Type Department Care Team Description 09/07/2025 1:00 PM TABLE AND DESK FINISHER Hospital Encounter [facility] [address] [place] [address] Vannessa Chapin MD 09/06/2025 2:30 PM TABLE AND DESK FINISHER - 09/06/2025 11:59 PM TABLE AND DESK FINISHER Hospital Encounter [facility] [address] [place] [address] Jai Schuler MD Discharge Disposition: Home or Self Care 09/02/2025 1:43 PM TABLE AND DESK FINISHER - 09/02/2025 11:59 PM TABLE AND DESK FINISHER Hospital Encounter [facility] [address] [place] [phone] Elizabeth Abarca MD Discharge Disposition: Home or Self Care 08/29/2025 10:30 AM TABLE AND DESK FINISHER - 08/29/2025 11:59 PM TABLE AND DESK FINISHER Hospital Encounter [facility] [address] [place] [phone] Vannessa Chapin MD Discharge Disposition: Home or Self Care 08/26/2025 9:45 AM TABLE AND DESK FINISHER - 08/26/2025 11:59 PM TABLE AND DESK FINISHER Hospital Encounter [facility] [address] [place] [phone] Melvi Mccullough MD Discharge Disposition: Home or Self Care 08/23/2025 1:00 PM TABLE AND DESK FINISHER - 08/23/2025 11:59 PM TABLE AND DESK FINISHER Hospital Encounter [facility] [address] [place] [phone] Jai Schuler MD Discharge Disposition: Home or Self Care 08/17/2025 1:00 PM TABLE AND DESK FINISHER - 08/17/2025 11:59 PM TABLE AND DESK FINISHER Hospital Encounter [facility] [address] [place] [phone] Max Ashley MD Discharge Disposition: Home or Self Care 08/15/2025 2:30 PM TABLE AND DESK FINISHER - 08/15/2025 11:59 PM TABLE AND DESK FINISHER Hospital Encounter [facility] [address] [place] [phone] Teofilo Brewer DO REHABILITATION TECH Discharge Disposition: Home or Self Care 08/12/2025 1:45 PM TABLE AND DESK FINISHER - 08/12/2025 11:59 PM TABLE AND DESK FINISHER Hospital Encounter [facility] [address] [place] [phone] Kaden Mathews MD Discharge Disposition: Home or Self Care 08/10/2025 11:15 AM TABLE AND DESK FINISHER - 08/10/2025 11:59 PM TABLE AND DESK FINISHER Hospital Encounter [facility] [address] [place] [phone] Vannessa Chapin MD Discharge Disposition: Home or Self Care 08/08/2025 2:26 PM TABLE AND DESK FINISHER - 08/08/2025 11:59 PM TABLE AND DESK FINISHER Hospital Encounter [facility] [address] [place] [phone] Max Ashley MD Discharge Disposition: Home or Self Care 08/05/2025 1:14 PM TABLE AND DESK FINISHER - 08/05/2025 11:59 PM TABLE AND DESK FINISHER Hospital Encounter [facility] [address] [place] [phone] Veronica Green MD Discharge Disposition: Home or Self Care 08/05/2025 1:00 PM TABLE AND DESK FINISHER - 08/05/2025 1:13 PM TABLE AND DESK FINISHER Hospital Encounter [facility] [address] [place] [phone] Veronica Green MD REHABILITATION TECH Discharge Disposition: Home or Self Care 08/02/2025 Telephone [facility] [address] [place] [phone] Shivani Gutierrez RN Question (Called patient through [employer]- manager enterprise, Rola to see if patient is able to get her glucose loan collector working. ) 07/29/2025 1:00 PM TABLE AND DESK FINISHER - 07/29/2025 11:59 PM TABLE AND DESK FINISHER Hospital Encounter [facility] [address] [place], [place] [phone] Max Ashley MD Tomlinson, Tracy M, MD Discharge Disposition: Home or Self Care 07/25/2025 2:30 PM TABLE AND DESK FINISHER - 07/25/2025 11:59 PM TABLE AND DESK FINISHER Hospital Encounter [facility] [address] [place] [phone] Jai Schuler MD Discharge Disposition: Home or Self Care 07/20/2025 1:37 PM CDT - 07/20/2025 11:59 PM CDT Hospital Encounter [facility] [address] [place] [phone] Vannessa Chapin MD Discharge Disposition: Home or Self Care 06/29/2025 1:45 PM CDT Hospital Encounter [facility] [address] [place] [phone] Patricia Caceres MD Discharge Disposition: Home or Self Care 06/29/2025 1:45 PM CDT Hospital Encounter [facility] [address] [place] [phone] Patricia Caceres MD Discharge Disposition: Home or Self Care 06/29/2025 Travel 06/28/2025 Telephone [facility] [address] [place] [phone] Shivani Gutierrez, RN Results (Called patient using [employer] to give her NIPT results. ) 06/22/2025 1:42 PM CDT - 06/22/2025 11:59 PM CDT Hospital Encounter [facility] [address] [place] [phone] Vannessa Chapin MD Discharge Disposition: Home or Self Care 06/10/2025 Telephone [facility] [address] [place] [phone] Shivani Gutierrez, RN Refill Request (Kajal from Dr. Sandoval's office reports patient was seen today and reports she needs refill of her Lantus. Kajal notified that patient's RX was refilled on 06/01/25 by our office.) 06/10/2025 Orders Only [facility] [address] [place] [phone] Shivani Gutierrez RN 06/08/2025 Telephone [facility] [address] [place] [phone] Sarah Zhu, client retention specialist from Last 3 Months Family History Medical [...] Comments Blood Pressure 111/73 09/07/2025 1:24 PM TABLE AND DESK FINISHER Pulse 95 09/07/2025 1:24 PM TABLE AND DESK FINISHER Temperature - - Respiratory Rate - - Oxygen Saturation - - Inhaled Oxygen Concentration - - Weight 85 kg (187 lb 6.4 oz) 09/07/2025 1:24 PM TABLE AND DESK FINISHER Height 165.1 cm (5' 5) 04/27/2025 2:54 PM CDT Body Mass Index 31.18 04/27/2025 2:54 PM CDT Plan of Treatment Upcoming Encounters Date Type Department Care Team (Late st Contact Info) Description 09/09/2025 1:45 PM TABLE AND DESK FINISHER Hospital Encounter [facility] [address] [place] [address] Elizabeth Abarca MD [facility] [address] [address] 09/12/2025 1:00 PM TABLE AND DESK FINISHER Hospital Encounter [facility] [address] [place] [address] 09/16/2025 1:45 PM TABLE AND DESK FINISHER Hospital Encounter [facility] [address] [place] [address] 09/19/2025 1:00 PM TABLE AND DESK FINISHER Hospital Encounter [facility] [address] [place] [address] Health Maintenance Due Date Last Done Comments HIV SCREENING 2001 HEPATITIS C SCREENING 07/22/2004 DTAP/TDAP/TD VACCINES (1 - Tdap) 2005 HEPATITIS B VACCINE (1 of 3 - 19+ 3-dose series) 2005 PAP SMEAR 2007 HPV VACCINE (1 - 3-dose SCDM series) 2013 DEPRESSION SCREENING 09/22/2024 COVID-19 VACCINE (1 - 2024-2 6 season) 2025 INFLUENZA VACCINE (#1) 2025 08/16/2024 OB-ONE HOUR GLUCOSE 06/15/2025 OB-TDAP CURRENT 06/22/20252023, 10/24/2023 OB-RHOGAM INJECTION 06/29/2025 OB-GROUP B STREP SCREEN 08/17/2025 ZOSTER VACCINE (1 of 2) 2036 HIB [...] on patient's age to complete this topic Respiratory Syncytial Virus (RSV) Vaccine Pt: or over 60 yrs (No Doses Required) Completed Procedures Procedure Name Priority Date/Time Associated Diagnosis Comments SONOGRAM - COMPLETE Routine 09/06/2025 2 :50 PM TABLE AND DESK FINISHER complicated by pre-existing type 2 diabetes in third trimester (HCC) Advanced maternal age in multigravida, third trimester (HCC) Encounter for ultrasound to assess growth (HCC) BIOPHYSICAL PROFILE W NST Routine 08/29/2025 10:45 AM TABLE AND DESK FINISHER Type 2 diabetes mellitus affecting in second trimester, antepartum (HCC) Advanced maternal age in multigravida, second trimester (HCC) 35 weeks gestation of (HCC) Encounter for other screening follow-up (HCC) BIOPHYSICAL PROFILE [facility] Routine 08/23/2025 1:04 PM TABLE AND DESK FINISHER Type 2 diabetes mellitus affecting in second trimester, antepartum (HCC) Advanced maternal age in multigravida, second trimester (HCC) 35 weeks gestation of (HCC) Encounter for other screening follow-up (HCC) BIOPHYSICAL PROFILE [facility] Routine 08/15/2025 2:48 PM TABLE AND DESK FINISHER Type 2 diabetes mellitus affecting in second trimester, antepartum (HCC) Supervision of high-risk of elderly multigravida, third trimester (HCC) Obesity affecting in third trimester, unspecified obesity type (HCC) Encounter for other screening follow-up (HCC) Encounter for ultrasound to assess growth (HCC) BIOPHYSICAL PROFILE [facility] Routine 08/08/2025 3:22 PM TABLE AND DESK FINISHER Type 2 diabetes mellitus affecting in second trimester, antepartum (HCC) Advanced maternal age in multigravida, second trimester (HCC) Obesity affecting in second trimester, unspecified obesity type (HCC) Encounter for other screening follow-up (HCC) BIOPHYSICAL PROFILE [facility] Routine 08/05/2025 2:03 PM TABLE AND DESK FINISHER Type 2 diabetes mellitus affecting in second trimester, antepartum (HCC) Advanced maternal age in multigravida, second trimester (HCC) Obesity affecting in second trimester, unspecified obesity type (HCC) Encounter for other screening follow-up (HCC) BIOPHYSICAL PROFILE [facility] Routine 07/25/2025 3:15 PM TABLE AND DESK FINISHER Type 2 diabetes mellitus affecting in second trimester, antepartum (HCC) Advanced maternal age in multigravida, second trimester (HCC) Obesity affecting in second trimester, unspecified obesity type (HCC) Encounter for other screening follow-up (HCC) BIOPHYSICAL PROFILE [facility] Routine 07/20/2025 3:04 PM CDT Type 2 diabetes mellitus affecting in second trimester, antepartum (HCC) Advanced maternal age in multigravida, second trimester (HCC) Obesity affecting in second trimester, unspecified obesity type (HCC) Encounter for other screening follow-up (HCC) ECHO COMPLETE CG Routine 06/29/2025 2:39 PM CDT Type 2 diabetes mellitus affecting in second trimester, antepartum (HCC) SONOGRAM - COMPLETE Routine 06/22/2025 2 :13 PM CDT Type 2 diabetes mellitus affecting in second trimester, antepartum (HCC) Advanced maternal age in multigravida, second trimester (HCC) Obesity affecting in second trimester, unspecified obesity type (HCC) Encounter for ultrasound to assess growth (HCC) 27 weeks gestation of (HCC) from Last 3 Months Results * Sonogram - Complete (09/06/2025 2:50 PM TABLE AND DESK FINISHER) Only the most recent of2 resultswithin the time period is included. Linked Results Indication ======== Supervision of high risk Pre-existing type 2 diabetes mellitus, in Advanced maternal age (AMA), multigravida Macrosomia / large for dates Short interval History ====== OB History 2. Para 1 [id number] 1. live 2023. Gest. age 37 w [...] 8 lb 15 oz EFW by Hadlock ([id number]) accelerated Growth Overview Exam date GA BPD [...] Continue weekly BPP with 2x weekly NST CONSTRUCTION SECRETARY and Diabetic Education appointment with [facility] tomorrow, 09/07 Coding ====== Diagnoses O24.113: Pre-existing type 2 diabetes mellitus, in Z36.2: Encounter for other screening follow-up O09.523: Supervision of elderly multigravida O09.299: Supervision of with other poor reproductive or obstetric history O36.63X0: Maternal care for excessive growth Procedures 74724: [place] [address]: Biophysical Profile W NST . [facility] PACS Anatomical Region Laterality Modality Other 09/06/2025 2:50 PM TABLE AND DESK FINISHER Chance Cardenas MD [facility] ORDERABLES Edited Result - Final * Biophysical Profile w NST (08/29/2025 10:45 AM TABLE AND DESK FINISHER) Only the most recent of7 resultswithin the time period is included. Linked Results Indication ======== Supervision of high risk Pre-existing type 2 diabetes mellitus, in Advanced maternal age (AMA), multigravida Suspected excessive growth Short interval History ====== OB History 2. Para 1 [id number] 1. live 2023. Gest. age 37 w [...] Date Details Gest. age RONEN Stated RONEN 36 w + 5 d 09/21/2025 Assigned dating based on ultrasound (AC, BPD, Femur, HC), selected on 04/06/2025 36 w + 5 d 09/21/2025 General Evaluation Cardiac activity present. FHR 132 bpm. Presentation: cephalic Placenta: Placental site: anterior Amniotic Fluid Assessment ==== Amount of AF: normal MVP 7.2 cm. CORI 18.7 cm. Q1 7.2 cm, Q2 1.4 cm, Q3 3.8 cm, Q4 6.4 cm Biophysical Profile 2: breathing movements 2: Gross body movements 2: tone 2: Amniotic fluid volume NST: reactive / Biophysical profile score Non Stress Test NST interpretation: reactive. Baseline FHR 130 bpm. Baseline variability: moderate. Accelerations: present Growth Overview Exam date GA BPD (mm) [...] >99% 70.2 75% 58.5 46% 3450 >99% Anatomy The following structures appear normal: Abdomen Stomach. Kidneys. Bladder. sex: male. Impression ========= Single, live, intrauterine at 36w 5d The amniotic fluid volume is normal. The biophysical profile is 07/01. Comment ======== ultrasound alone cannot detect all structural, genetic, or functional , placental, or maternal abnormalities Follow-up ======== Continue weekly BPP with 2x weekly NST Repeat growth in 2 weeks if undelivered Coding ====== Diagnoses O24.113: Pre-existing type 2 diabetes mellitus, in Z36.2: Encounter for other screening follow-up O09.523: Supervision of elderly multigravida O09.299: Supervision of with other poor reproductive or obstetric history O36.63X0: Maternal care for excessive growth Procedures 89480: US Uterus Limited 98176: Biophysical Profile W NST [facility] PACS Anatomical Region Laterality Modality Other 08/29/2025 10:4 5 AM TABLE AND DESK FINISHER us Chance Cardenas MD [facility] ORDERABLES Edited Result - Final * ECHO COMPLETE CG (06/29/2025 2:39 PM CDT) MV E pk randy 31.08 cm/s [facility] CV F UJI PACS MV A pk randy 44.3 cm/s [facility] CV F UJI PACS Anatomical Region Laterality Modality Ultrasound 06/29/2025 2:12 PM CDT Narrative 06/29/2025 5:07 PM CDT Name: Joana Jiménez Patient Exam Info Gender: Female Patient Status: O/P : 1985 Admit Date: 06/29/2025 Exam Date/Time: 06/29/2025 2:12 PM Site: [facility] Current Location: CARE EStudy Quality: Diagnostic quality Staff Ordering Provider: Sheila Ramires Interpreting Physician: Patricia Caceres MD Sinter Feeder: Melina Walter [facility] Study Info Procedure: ECHO COMPLETE CG Indications: O24.112 - Type 2 diabetes mellitus affecting in second trimester, antepartum (HCC) Maternal Gestational Status GA by EDC: 28 wks , 0 days EDC: 09/21/2025 Type: Sanders Age: 39 yrs Lie: Breech Summary * The echocardiogram was within normal limits. * Small atrial and ventricular septal defects and persistent ductus arteriosus cannot be excluded as findings. Anatomic Relationships Left sided cardiac apex (levocardia). There is normal visceral-cardiac situs, and normal segmental cardiac anatomical relationship. Systemic Veins There is normal systemic venous return. Pulmonary Veins The visualized pulmonary veins drain normally to the left atrium. Right Atrium The right atrial size is normal. Left Atrium The left atrial size is normal. Atrial Septum Patent foramen ovale with open foramen flap. Color flow is right to left. Right Ventricle The right ventricular cavity size is normal. The right ventricular wall thickness is normal. The right ventricular systolic function is normal. RV Outflow Tract The right ventricular outflow tract is normal. Left Ventricle The left ventricular cavity size is normal. The left ventricular wall thickness is normal. The left ventricular systolic function is normal. Ventricular Septum There is no ventricular septal defect with no shunting. LV Outflow Tract The left ventricular outflow tract is normal. Tricuspid Valve The tricuspid valve is structurally normal. The tricuspid inflow pattern is normal. Tricuspid velocity is within the normal range. There is no tricuspid regurgitation. Mitral Valve The mitral valve is structurally normal. The mitral inflow pattern is normal. Mitral velocity is within the normal range. There is no mitral regurgitation. Aorta aortic arch visualized and is without obstruction by 2D, color flow and Doppler. Pulmonary Arteries The main pulmonary artery is normal, with confluent branch pulmonary arteries. Ductus Arteriosus The antegrade flow velocity and pattern in the ductal arch is normal. A normal ductus arteriosus is appreciated. Doppler Flow in the ductus venosus is normal. The umbilical vein flow pattern is normal. The umbilical artery flow pattern is normal. Hydrops Assessment No pericardial effusion. No ascites present. No pleural effusion(s). Rhythm The rhythm is normal. There is 1:1 AV conduction. Pulmonary Valve The pulmonic valve is normal-sized. The transpulmonic velocity is within normal range. There is no pulmonic regurgitation. Aortic Valve The aortic valve is normal-sized. The transaortic velocity is within normal range. There is no aortic regurgitation. Doppler Measurements (Fetus A) Atrioventricular Valves Name Value Normal Z-Score Percentile Atrioventricular Valves Doppler TV E Peak Velocity 0.3 m/s TV A Peak Velocity 0.5 m/s MV E Peak Velocity 0.3 m/s MV A Peak Velocity 0.4 m/s (Fetus A) Semilunar Valves Name Value Normal Z-Score Percentile Semilunar Valves Doppler PV Peak Velocity. 0.6 m/s AV Peak Velocity () 1.0 m/s (Fetus A) Heart Rate Name Value Normal Z-Score Percentile Heart Rate HR 141 bpm Report Signatures Finalized by Patricia Caceres MD on 06/29/2025 05:07 PM Procedure Note Patricia Caceres MD - 06/29/2025 Name: Joana Jiménez Patient Exam Info Gender: Female Patient Status: O/P : 1985 Admit Date: 06/29/2025 Exam Date/Time: 06/29/2025 2:12 PM Site: [facility] Current Location: CARE EStudy Quality: Diagnostic quality Staff Ordering Provider: Sheila Ramires Interpreting Physician: Patricia Caceres MD Sinter Feeder: Mel[facility] [facility] Study Info Procedure: ECHO COMPLETE CG Indications: O24.112 - Type 2 diabetes mellitus affecting in second trimester, antepartum (HCC) Maternal Gestational Status GA by EDC: 28 wks , 0 days EDC: 09/21/2025 Type: Sanders Age: 39 yrs Lie: Breech Summary * The echocardiogram was within normal limits. * Small atrial and ventricular septal defects and persistent ductus arteriosus cannot be excluded as findings. Anatomic Relationships Left sided cardiac apex (levocardia). There is normal visceral-cardiac situs, and normal segmental cardiac anatomical relationship. Systemic Veins There is normal systemic venous return. Pulmonary Veins The visualized pulmonary veins drain normally to the left atrium. Right Atrium The right atrial size is normal. Left Atrium The left atrial size is normal. Atrial Septum Patent foramen ovale with open foramen flap. Color flow is right toleft. Right Ventricle The right ventricular cavity size is normal. The right ventricularwall thickness is normal. The right ventricular systolic function is normal. RV Outflow Tract The right ventricular outflow tract is normal. Left Ventricle The left ventricular cavity size is normal. The left ventricular wall thickness is normal. The left ventricular systolic function is normal. Ventricular Septum There is no ventricular septal defect with no shunting. LV Outflow Tract The left ventricular outflow tract is normal. Tricuspid Valve The tricuspid valve is structurally normal. The tricuspid inflow patternis normal. Tricuspid velocity is within the normal range. There is notricuspid regurgitation. Mitral Valve The mitral valve is structurally normal. The mitral inflow pattern is normal. Mitral velocity is within the normal range. There is no mitral regurgitation. Aorta aortic arch visualized and is without obstruction by 2D, colorflow and Doppler. Pulmonary Arteries The main pulmonary artery is normal, with confluent branch pulmonary arteries. Ductus Arteriosus The antegrade flow velocity and pattern in the ductal arch is normal.A normal ductus arteriosus is appreciated. Doppler Flow in the ductus venosus is normal. The umbilical vein flow patternis normal. The umbilical artery flow pattern is normal. Hydrops Assessment No pericardial effusion. No ascites present. No pleural effusion(s). Rhythm The rhythm is normal. There is 1:1 AV conduction. Pulmonary Valve The pulmonic valve is normal-sized. The transpulmonic velocity iswithin normal range. There is no pulmonic regurgitation. Aortic Valve The aortic valve is normal-sized. The transaortic velocity is withinnormal range. There is no aortic regurgitation. Doppler Measurements (Fetus A) Atrioventricular Valves Name Value Normal Z-ScorePercentile Atrioventricular Valves Doppler TV E Peak Velocity 0.3 m/s TV A Peak Velocity 0.5 m/s MV E Peak Velocity 0.3 m/s MV A Peak Velocity 0.4 m/s (Fetus A) Semilunar Valves Name Value Normal Z-ScorePercentile Semilunar Valves Doppler PV Peak Velocity. 0.6 m/s AV Peak Velocity () 1.0 m/s (Fetus A) Heart Rate Name Value Normal Z-ScorePercentile Heart Rate HR 141 bpm Report Signatures Finalized by Patricia Caceres MD on 06/29/2025 05:07 PM Sheila Ramires [employer] [facility] [facility] Vinnie al Result from Last 3 Months Insurance MEDICAID [facility]
--- OUTSIDE RECORDS SUMMARY | 2025-09-07 18:31 | XMS_ITS | Encounter Summary ---
Author Organization [facility] Address [address] [place] [id number] Care Team Providers Care Chicken And Fish Butcher Name Role Phone None, Provider Primary Care Provider Unavaila ble Encounter Details Date Type Department Care Team (Late st Contact Info) Description 03/14/2025 Orders Only [place] [address] Eyal Swenson MD [address] [facility] [address] [place] [id number] Social History Tobacco Use Types Packs/Day Years [...] on filedocumented in this encounter Care Teams Chicken And Fish Butcher Relationship Specialty Start Date End Date None, Provider, PCP - General UNKNOWN PHYSICIAN SPECIALTY 03/10/25 documented as of this encounter
[2025-09-07 18:38] LABS: Syphilis IgG/IgM Antibody Non-Reactive (Nonreactive)
[2025-09-07 19:19] LABS: HIV 1/2 Ab P24 Ag Result Negative (Negative)
[2025-09-07] MEDS: INSULIN GLARGINE (*BKC) 100 UNITS/ML 60 UNITS SUB-Q (22:00)
[2025-09-07] MEDS: AMPICILLIN SODIUM 1 GM in SODIUM CHLORIDE 0.9% IV 50 ML 100 ML IVPB (23:25)
[2025-09-08] VITALS (337 sets, daily range): BP systolic 81–139; BP diastolic 28–105; PULSE 25–248; RESP 14–22; TEMP 36.7–38.3; O2SAT 71–100
[2025-09-08] MEDS: LACTATED RINGERS 1,000 ML 125 ML IV CONT ×2 (02:35→10:55)
[2025-09-08] MEDS: AMPICILLIN SODIUM 1 GM in SODIUM CHLORIDE 0.9% IV 50 ML 100 ML IVPB ×5 (03:23→19:29)
--- NOTE | 2025-09-08 08:01 | PM.IMHP2 ---
H&P: [facility] History of Present Illness Date/Time: 09/08/25 08:01 Chief Complaint: Induction of labor Narrative: She is 40-year-old at 38 weeks with class B diabetes. She is comanaged with [facility]. She has been on insulin. Since her last visit with the [facility] she did not increase the dose as instructed she was unaware of instructions to increase it. Her ultrasound on 09/07 showed greater than 4065 gm. [facility] recommended induction. course also significant for advanced maternal age. She has had reassuring surveillance. Review of Systems Review of Systems: All systems reviewed & are unremarkable except as noted in HPI and below Constitutional: Constitutional: Reports no additional constitutional complaints and Denies headache(s) Eyes: Eyes: Denies spots in vision ENT: Reports system reviewed and no additional complaints, except as documented and Denies headache(s) Cardiovascular: Cardiovascular: Denies chest pain and Denies dyspnea Respiratory: Respiratory: Denies dyspnea Gastrointestinal: Gastrointestinal: Reports no additional gastrointestinal complaints Genitourinary: Genitourinary: Reports amenorrhea Musculoskeletal: Musculoskeletal: Reports no additional musculoskeletal complaints Integumentary/Breasts: Skin/Breast: Denies breast mass and Denies rash Neurologic: Denies headache(s) Psychiatric: Psychiatric: Reports no additional psychiatric complaints [facility] Past Medical History Medical History Gestational diabetes Family History Family History Mother Diabetes mellitus Sibling Alcohol abuse Social History Social History Smoking status: Never smoker Alcohol intake: never Substance use: never Substance use type: does not use Spiritual care concerns: No Meds Home Medications and Allergies Home Medications ?Medication ?Instructions ?Recorded ?Confirmed ?Type docosahexaenoic acid 200 mg 200 mg PO DAILY 03/22/25 09/07/25 History capsule ( DHA) insulin glargine 100 unit/mL (3 60 unit subcut QPM 03/22/25 09/07/25 History mL) subcutaneous pen (Lantus Solostar U-100 Insulin) insulin lispro 100 unit/mL 4 unit subcut DAILY 09/07/25 09/07/25 History subcutaneous pen Allergies Allergy/AdvReac Type Severity Reaction Status Date / Time No Known Allergies Allergy Verified 09/07/25 17:30 Vital Signs Vital Signs - 24 hr 09/07/25 17:54 09/07/25 17:59 09/07/25 18:04 Temperature Pulse Rate 78 Blood Pressure 121/79 Pulse Oximetry 97 99 97 09/07/25 18:09 09/07/25 18:16 09/07/25 18:30 Temperature Pulse Rate 83 91 Blood Pressure 109/73 112/80 Pulse Oximetry 96 09/07/25 19:00 09/07/25 19:12 09/07/25 19:16 Temperature 98.4 F Pulse Rate 87 Blood Pressure 135/100 H Pulse Oximetry 97 09/07/25 19:26 09/07/25 19:31 09/07/25 19:36 Temperature Pulse Rate 89 Blood Pressure 153/93 H Pulse Oximetry 100 99 99 09/07/25 19:41 09/07/25 19:46 09/07/25 19:51 Temperature Pulse Rate 93 Blood Pressure 155/90 H Pulse Oximetry 98 98 99 09/07/25 20:01 09/07/25 20:09 09/07/25 20:14 Temperature Pulse Rate 92 Blood Pressure 128/69 Pulse Oximetry 99 96 09/07/25 20:15 09/07/25 20:30 09/07/25 20:45 Temperature Pulse Rate 94 85 82 Blood Pressure 114/73 116/67 123/75 Pulse Oximetry 09/07/25 21:09 09/07/25 21:14 09/07/25 21:15 Temperature Pulse Rate 88 Blood Pressure 114/67 Pulse Oximetry 98 99 09/07/25 21:19 09/07/25 21:24 09/07/25 21:29 Temperature Pulse Rate Blood Pressure Pulse Oximetry 100 97 96 09/07/25 21:30 09/07/25 21:34 09/07/25 21:39 Temperature Pulse Rate 83 Blood Pressure 108/68 Pulse Oximetry 97 97 09/07/25 21:45 09/07/25 21:47 09/07/25 21:52 Temperature Pulse Rate 79 Blood Pressure 113/69 Pulse Oximetry 97 97 09/07/25 21:56 09/07/25 22:00 09/07/25 22:15 Temperature Pulse Rate 84 95 Blood Pressure 118/74 96/56 L Pulse Oximetry 98 09/07/25 22:31 09/07/25 22:37 09/07/25 22:42 Temperature Pulse Rate 75 Blood Pressure 105/58 L Pulse Oximetry 98 96 09/07/25 22:45 09/07/25 22:47 09/07/25 22:52 Temperature Pulse Rate 99 Blood Pressure 98/62 L Pulse Oximetry 96 98 09/07/25 23:00 09/07/25 23:10 09/07/25 23:15 Temperature 98.2 F Pulse Rate 76 Blood Pressure 118/78 Pulse Oximetry 98 95 09/07/25 23:16 09/07/25 23:20 09/07/25 23:25 Temperature Pulse Rate 83 Blood Pressure 107/55 L Pulse Oximetry 95 96 09/07/25 23:33 09/07/25 23:38 09/07/25 23:43 Temperature Pulse Rate Blood Pressure Pulse Oximetry 98 98 97 09/07/25 23:46 09/07/25 23:48 09/07/25 23:53 Temperature Pulse Rate 86 Blood Pressure 119/77 Pulse Oximetry 98 98 09/07/25 23:58 09/08/25 00:00 09/08/25 00:03 Temperature Pulse Rate 74 Blood Pressure 120/82 Pulse Oximetry 97 97 09/08/25 00:08 09/08/25 00:13 09/08/25 00:15 Temperature Pulse Rate 77 Blood Pressure 120/71 Pulse Oximetry 97 98 09/08/25 00:18 09/08/25 00:23 09/08/25 00:28 Temperature Pulse Rate Blood Pressure Pulse Oximetry 98 98 97 09/08/25 00:30 09/08/25 00:33 09/08/25 00:38 Temperature Pulse Rate 80 Blood Pressure 115/72 Pulse Oximetry 97 97 09/08/25 00:43 09/08/25 00:45 09/08/25 00:49 Temperature Pulse Rate 93 Blood Pressure 124/105 H Pulse Oximetry 97 98 09/08/25 00:54 09/08/25 00:59 09/08/25 01:00 Temperature 98.1 F Pulse Rate Blood Pressure Pulse Oximetry 96 98 09/08/25 01:01 09/08/25 01:04 09/08/25 01:09 Temperature Pulse Rate 87 Blood Pressure 109/70 Pulse Oximetry 97 98 09/08/25 01:14 09/08/25 01:15 09/08/25 01:19 Temperature Pulse Rate 83 Blood Pressure 115/79 Pulse Oximetry 98 96 09/08/25 01:24 09/08/25 01:29 09/08/25 01:30 Temperature Pulse Rate 82 Blood Pressure 108/62 Pulse Oximetry 96 97 09/08/25 01:34 09/08/25 01:39 09/08/25 01:44 Temperature Pulse Rate Blood Pressure Pulse Oximetry 96 96 96 09/08/25 01:45 09/08/25 01:49 09/08/25 01:54 Temperature Pulse Rate 79 Blood Pressure 115/67 Pulse Oximetry 96 96 09/08/25 01:59 09/08/25 02:00 09/08/25 02:04 Temperature Pulse Rate 77 Blood Pressure 114/64 Pulse Oximetry 96 97 09/08/25 02:09 09/08/25 02:14 09/08/25 02:15 Temperature Pulse Rate 85 Blood Pressure 105/59 L Pulse Oximetry 97 96 09/08/25 02:19 09/08/25 02:24 09/08/25 02:29 Temperature Pulse Rate Blood Pressure Pulse Oximetry 97 96 96 09/08/25 02:30 09/08/25 02:34 09/08/25 02:39 Temperature Pulse Rate 82 Blood Pressure 114/69 Pulse Oximetry 96 96 09/08/25 02:44 09/08/25 02:45 09/08/25 02:49 Temperature Pulse Rate 89 Blood Pressure 101/59 L Pulse Oximetry 96 96 09/08/25 02:54 09/08/25 02:59 09/08/25 03:00 Temperature 98.3 F Pulse Rate 85 Blood Pressure 111/68 Pulse Oximetry 97 94 09/08/25 03:04 09/08/25 03:09 09/08/25 03:11 Temperature Pulse Rate Blood Pressure Pulse Oximetry 93 96 95 09/08/25 03:11 09/08/25 03:15 09/08/25 03:16 Temperature Pulse Rate 87 Blood Pressure 94/58 L Pulse Oximetry 96 93 09/08/25 03:21 09/08/25 03:26 09/08/25 03:30 Temperature Pulse Rate 81 Blood Pressure 100/58 L Pulse Oximetry 94 95 09/08/25 03:31 09/08/25 03:36 09/08/25 03:49 Temperature Pulse Rate Blood Pressure Pulse Oximetry 94 96 99 09/08/25 03:54 09/08/25 03:59 09/08/25 04:00 Temperature Pulse Rate 99 Blood Pressure 98/63 L Pulse Oximetry 99 98 09/08/25 04:04 09/08/25 04:09 09/08/25 04:14 Temperature Pulse Rate Blood Pressure Pulse Oximetry 98 98 98 09/08/25 04:16 09/08/25 04:19 09/08/25 04:24 Temperature Pulse Rate 71 Blood Pressure 117/69 Pulse Oximetry 96 96 09/08/25 04:29 09/08/25 04:30 09/08/25 04:34 Temperature Pulse Rate 71 Blood Pressure 118/74 Pulse Oximetry 96 96 09/08/25 04:39 09/08/25 04:44 09/08/25 04:45 Temperature Pulse Rate 85 Blood Pressure 109/64 Pulse Oximetry 94 95 09/08/25 04:49 09/08/25 04:54 09/08/25 04:59 Temperature Pulse Rate Blood Pressure Pulse Oximetry 94 95 96 09/08/25 05:00 09/08/25 05:04 09/08/25 05:09 Temperature Pulse Rate 105 H Blood Pressure 102/69 Pulse Oximetry 96 95 09/08/25 05:14 09/08/25 05:15 09/08/25 05:19 Temperature Pulse Rate 95 Blood Pressure 94/75 L Pulse Oximetry 95 95 93 09/08/25 05:24 09/08/25 05:29 09/08/25 05:30 Temperature Pulse Rate 105 H Blood Pressure 93/65 L Pulse Oximetry 91 92 09/08/25 05:34 09/08/25 05:39 09/08/25 05:44 Temperature Pulse Rate Blood Pressure Pulse Oximetry 94 94 95 09/08/25 05:45 09/08/25 05:49 09/08/25 05:54 Temperature Pulse Rate 102 H Blood Pressure 91/72 L Pulse Oximetry 95 96 09/08/25 05:59 09/08/25 06:00 09/08/25 06:04 Temperature Pulse Rate 77 Blood Pressure 107/70 Pulse Oximetry 96 95 09/08/25 06:05 09/08/25 06:08 09/08/25 06:15 Temperature 98.1 F Pulse Rate Blood Pressure Pulse Oximetry 97 88 L 09/08/25 06:15 09/08/25 06:15 09/08/25 06:15 Temperature Pulse Rate 78 Blood Pressure 117/75 Pulse Oximetry 90 09/08/25 06:17 09/08/25 06:25 09/08/25 06:30 Temperature Pulse Rate 72 Blood Pressure 117/70 Pulse Oximetry 94 97 09/08/25 06:45 09/08/25 07:14 09/08/25 07:19 Temperature Pulse Rate 80 Blood Pressure 116/67 Pulse Oximetry 98 97 09/08/25 07:24 09/08/25 07:29 09/08/25 07:34 Temperature Pulse Rate Blood Pressure Pulse Oximetry 98 97 97 09/08/25 07:39 09/08/25 07:44 09/08/25 07:49 Temperature Pulse Rate Blood Pressure Pulse Oximetry 97 98 98 09/08/25 07:54 09/08/25 07:56 Temperature Pulse Rate Blood Pressure Pulse Oximetry 99 98 Exam Const: General: no acute distress Eyes: General: appearance normal, both eyes and all related structures Resp: Effort & Inspection: normal respiratory effort Cardio: Rate: regular rate GI: Other: Gravid no fundal tenderness no right upper quadrant pain Skin: General skin exam: no rashes or lesions noted Neuro: Cognition (Neuro): normal cognition Extrem: General: normal to inspection Psych: Mental Status: mental status grossly normal Results Labs Labs: Short CBC 09/07/25 Range/Units 17:49 WBC 6.9 (4.5-10.0) K/mm3 Hgb 12.4 (12.0-15.0) g/dL Hct 37.2 (37.0-47.0) % Plt Count 233 (150-375) k/mm3 BMP 09/07/25 17:49 Sodium 132 L Potassium 4.0 Chloride 107 Carbon Dioxide 18 L BUN 11 Creatinine 0.50 L Glucose 95 Calcium 9.0 Liver Function 09/07/25 Range/Units 17:49 Total Bilirubin 0.8 (0.2-1.3) mg/dL AST 24 (14-36) U/L ALT 16 (6-35) U/L Alkaline Phosphatase 157 H (38-126) U/L Albumin 3.4 L (3.5-5.1) g/dL Assessment and Plan Assessment and plan (1) Pregestational diabetes mellitus, modified White class B: Code(s): O24.319 - Unspecified pre-existing diabetes mellitus in , unspecified trimester Status: Acute Assessment and Plan: Not well controlled. Macrosomia. Induction recommended by MFM. Patient has been informed of the induction process and risk and benefits of induction. She agrees with induction.
--- NOTE | 2025-09-08 08:01 | PM.OBPNVD ---
OB - PN: Subj Subjective Date/time seen: 09/08/25 08:01 Interval history: fht 125, cat 2, cervix 3/50/-3 AROM, large amount clear fluid, ctx q 3-4. OB - PN: Obj Data Labs 09/07/25 17:49 09/07/25 17:49 Labs: Laboratory Results - last 24 hr 09/07/25 09/07/25 09/08/25 17:49 20:56 01:08 WBC 6.9 RBC 4.50 Hgb 12.4 Hct 37.2 MCV 82.7 MCH 27.6 MCHC 33.3 RDW 12.8 Plt Count 233 MPV 11.7 H Immature Gran % (Auto) 0.1 Neut % (Auto) 66.0 Lymph % (Auto) 25.5 [place] % (Auto) 7.4 Eos % (Auto) 0.4 Baso % (Auto) 0.6 Lymph # (Auto) 1.76 [place] # (Auto) 0.5 Eos # (Auto) 0.0 Baso # (Auto) 0.0 Abs Immat Gran (auto) 0.01 Absolute Neuts (auto) 4.5 Absolute Nucleated RBC 0.000 Nucleated RBC % 0.0 Sodium 132 L Potassium 4.0 Chloride 107 Carbon Dioxide 18 L Anion Gap 7 BUN 11 Creatinine 0.50 L Estim Creat Clear Calc 131 Estimated GFR > 60 Glucose 95 POC Capillary Glucose 123 H 93 Calcium 9.0 Total Bilirubin 0.8 AST 24 ALT 16 Alkaline Phosphatase 157 H Total Protein 6.9 Albumin 3.4 L Syphilis IgG/IgM Ab Non-reactive HIV 1&2 Ab/P24 Ag 4thGn Negative Blood Type O Positive Antibody Screen Negative 09/08/25 07:06 WBC RBC Hgb Hct MCV MCH MCHC RDW Plt Count MPV Immature Gran % (Auto) Neut % (Auto) Lymph % (Auto) [place] % (Auto) Eos % (Auto) Baso % (Auto) Lymph # (Auto) [place] # (Auto) Eos # (Auto) Baso # (Auto) Abs Immat Gran (auto) Absolute Neuts (auto) Absolute Nucleated RBC Nucleated RBC % Sodium Potassium Chloride Carbon Dioxide Anion Gap BUN Creatinine Estim Creat Clear Calc Estimated GFR Glucose POC Capillary Glucose 94 Calcium Total Bilirubin AST ALT Alkaline Phosphatase Total Protein Albumin Syphilis IgG/IgM Ab HIV 1&2 Ab/P24 Ag 4thGn Blood Type Antibody Screen OB - PN A/P Time Spent With Patient Time: Total time spent is greater than 50% in coordination of care (as documented) at patient's floor/unit and/or counseling patient:
[2025-09-08] MEDS: INSULIN GLARGINE (*BKC) 100 UNITS/ML 18 UNITS SUB-Q (08:37)
[2025-09-08] MEDS: OXYTOCIN 30 UNITS/NS 500 ML 30 UNITS/500 ML BAG IV CONT (10:30)
--- NOTE | 2025-09-08 11:24 | WPDANESEPP ---
Anes - Eval Pre Procedure Procedure: Labor Epidural Date/Time: 09/08/25 11:24 Surgeon: Lori Preop Diagnosis: Labor Pain Pre Op Diagnosis: IOL Patient Data Age: 40 Gender: F Height: 1.6 m Weight: 86 kg Last Vital Signs Temp 36.9 C 09/08/25 10:13 Pulse 88 09/08/25 11:00 BP 109/73 09/08/25 11:00 Pulse Ox 100 09/08/25 11:21 Allergies Allergy/AdvReac Type Severity Reaction Status Date / Time No Known Allergies Allergy Verified 09/07/25 17:30 Home Medications ?Medication ?Instructions ?Recorded ?Confirmed ?Type docosahexaenoic acid 200 mg 200 mg PO DAILY 03/22/25 09/07/25 History capsule ( DHA) insulin glargine 100 unit/mL (3 60 unit subcut QPM 03/22/25 09/07/25 History mL) subcutaneous pen (Lantus Solostar U-100 Insulin) insulin lispro 100 unit/mL 4 unit subcut DAILY 09/07/25 09/07/25 History subcutaneous pen Laboratory Tests 09/07/25 09/07/25 09/08/25 17:49 20:56 01:08 WBC 6.9 K/mm3 (4.5-10.0) RBC 4.50 M/mm3 (4.2-5.4) Hgb 12.4 g/dL (12.0-15.0) Hct 37.2 % (37.0-47.0) MCV 82.7 fl (80-100) MCH 27.6 pg (26-34) MCHC 33.3 g/dl (32-36) RDW 12.8 % (11.5-14.5) Plt Count 233 k/mm3 (150-375) MPV 11.7 H fl (7.4-10.4) Immature Gran % (Auto) 0.1 % (0-0.5) Neut % (Auto) 66.0 % (45.5-73.1) Lymph % (Auto) 25.5 % (18.3-44.2) [place] % (Auto) 7.4 % (2.6-8.5) Eos % (Auto) 0.4 % (0-4.4) Baso % (Auto) 0.6 % (0.2-1.2) Lymph # (Auto) 1.76 K/mm3 (0.9-3.2) [place] # (Auto) 0.5 K/mm3 (0.1-0.6) Eos # (Auto) 0.0 K/mm3 (0-0.3) Baso # (Auto) 0.0 K/mm3 (0.0-0.1) Abs Immat Gran (auto) 0.01 K/mm3 (0.00-0.031) Absolute Neuts (auto) 4.5 K/mm3 (1.3-6.7) Absolute Nucleated RBC 0.000 K/mm3 (0.0-0.012) Nucleated RBC % 0.0 % (0.0-0.2) Sodium 132 L mmol/L (137-145) Potassium 4.0 mmol/L (3.4-5.0) Chloride 107 mmol/L (98-107) Carbon Dioxide 18 L mmol/L (22-30) Anion Gap 7 mmol/L (4-12) BUN 11 mg/dL (7-17) Creatinine 0.50 L mg/dL (0.7-1.0) Estim Creat Clear Calc 131 ml/min Estimated GFR > 60 (59 - ) Glucose 95 mg/dL (65-110) POC Capillary Glucose 123 H mg/dl 93 mg/dl (65-105) (65-105) Calcium 9.0 mg/dL (8.4-10.2) Total Bilirubin 0.8 mg/dL (0.2-1.3) AST 24 U/L (14-36) ALT 16 U/L (6-35) Alkaline Phosphatase 157 H U/L (38-126) Total Protein 6.9 g/dL (6.3-8.2) Albumin 3.4 L g/dL (3.5-5.1) Syphilis IgG/IgM Ab Non-reactive (Nonreactive) HIV 1&2 Ab/P24 Ag 4thGn Negative (Negative) Blood Type O Positive Antibody Screen Negative 09/08/25 09/08/25 09/08/25 07:06 08:09 09:10 WBC RBC Hgb Hct MCV MCH MCHC RDW Plt Count MPV Immature Gran % (Auto) Neut % (Auto) Lymph % (Auto) [place] % (Auto) Eos % (Auto) Baso % (Auto) Lymph # (Auto) [place] # (Auto) Eos # (Auto) Baso # (Auto) Abs Immat Gran (auto) Absolute Neuts (auto) Absolute Nucleated RBC Nucleated RBC % Sodium Potassium Chloride Carbon Dioxide Anion Gap BUN Creatinine Estim Creat Clear Calc Estimated GFR Glucose POC Capillary Glucose 94 mg/dl 77 mg/dl 146 H mg/dl (65-105) (65-105) (65-105) Calcium Total Bilirubin AST ALT Alkaline Phosphatase Total Protein Albumin Syphilis IgG/IgM Ab HIV 1&2 Ab/P24 Ag 4thGn Blood Type Antibody Screen Patient hx anesthesia problems: none Family hx anesthesia problems: none Results Review: All pre-operative results and documents have been reviewed as part of the pre-operative evaluation. [facility], LAT[facility] Past Medical History Medical History Gestational diabetes Family History Family History Mother Diabetes mellitus Sibling Alcohol abuse Social History Social History Smoking status: Never smoker Alcohol intake: never Substance use: never Substance use type: does not use Spiritual care concerns: No Exam Day of Procedure 09/08/25 11:24 Patient weight: normal Heart: regular rate and rhythm Lungs: normal air movement Airway: Mallampati scale class II Neurological: alert and oriented
[2025-09-08] MEDS: DEXTROSE 5%/LACTATED RINGERS 1,000 ML 100 ML IV CONT ×2 (13:01→19:35)
--- NOTE | 2025-09-08 15:04 | PM.OBPNVD ---
OB - PN: Subj Subjective Date/time seen: 09/08/25 15:04 Interval history: fht 130, cat 2, 8/90/-2. BS normal. Continue Pitocin. OB - PN: Obj Data Labs 09/07/25 17:49 09/07/25 17:49 Labs: Laboratory Results - last 24 hr 09/07/25 09/07/25 09/08/25 17:49 20:56 01:08 WBC 6.9 RBC 4.50 Hgb 12.4 Hct 37.2 MCV 82.7 MCH 27.6 MCHC 33.3 RDW 12.8 Plt Count 233 MPV 11.7 H Immature Gran % (Auto) 0.1 Neut % (Auto) 66.0 Lymph % (Auto) 25.5 [place] % (Auto) 7.4 Eos % (Auto) 0.4 Baso % (Auto) 0.6 Lymph # (Auto) 1.76 [place] # (Auto) 0.5 Eos # (Auto) 0.0 Baso # (Auto) 0.0 Abs Immat Gran (auto) 0.01 Absolute Neuts (auto) 4.5 Absolute Nucleated RBC 0.000 Nucleated RBC % 0.0 Sodium 132 L Potassium 4.0 Chloride 107 Carbon Dioxide 18 L Anion Gap 7 BUN 11 Creatinine 0.50 L Estim Creat Clear Calc 131 Estimated GFR > 60 Glucose 95 POC Capillary Glucose 123 H 93 Calcium 9.0 Total Bilirubin 0.8 AST 24 ALT 16 Alkaline Phosphatase 157 H Total Protein 6.9 Albumin 3.4 L Syphilis IgG/IgM Ab Non-reactive HIV 1&2 Ab/P24 Ag 4thGn Negative Blood Type O Positive Antibody Screen Negative 09/08/25 09/08/25 09/08/25 07:06 08:09 09:10 WBC RBC Hgb Hct MCV MCH MCHC RDW Plt Count MPV Immature Gran % (Auto) Neut % (Auto) Lymph % (Auto) [place] % (Auto) Eos % (Auto) Baso % (Auto) Lymph # (Auto) [place] # (Auto) Eos # (Auto) Baso # (Auto) Abs Immat Gran (auto) Absolute Neuts (auto) Absolute Nucleated RBC Nucleated RBC % Sodium Potassium Chloride Carbon Dioxide Anion Gap BUN Creatinine Estim Creat Clear Calc Estimated GFR Glucose POC Capillary Glucose 94 77 146 H Calcium Total Bilirubin AST ALT Alkaline Phosphatase Total Protein Albumin Syphilis IgG/IgM Ab HIV 1&2 Ab/P24 Ag 4thGn Blood Type Antibody Screen 09/08/25 09/08/25 09/08/25 10:02 11:02 12:48 WBC RBC Hgb Hct MCV MCH MCHC RDW Plt Count MPV Immature Gran % (Auto) Neut % (Auto) Lymph % (Auto) [place] % (Auto) Eos % (Auto) Baso % (Auto) Lymph # (Auto) [place] # (Auto) Eos # (Auto) Baso # (Auto) Abs Immat Gran (auto) Absolute Neuts (auto) Absolute Nucleated RBC Nucleated RBC % Sodium Potassium Chloride Carbon Dioxide Anion Gap BUN Creatinine Estim Creat Clear Calc Estimated GFR Glucose POC Capillary Glucose 139 H 116 H 85 Calcium Total Bilirubin AST ALT Alkaline Phosphatase Total Protein Albumin Syphilis IgG/IgM Ab HIV 1&2 Ab/P24 Ag 4thGn Blood Type Antibody Screen 09/08/25 09/08/25 13:55 14:54 WBC RBC Hgb Hct MCV MCH MCHC RDW Plt Count MPV Immature Gran % (Auto) Neut % (Auto) Lymph % (Auto) [place] % (Auto) Eos % (Auto) Baso % (Auto) Lymph # (Auto) [place] # (Auto) Eos # (Auto) Baso # (Auto) Abs Immat Gran (auto) Absolute Neuts (auto) Absolute Nucleated RBC Nucleated RBC % Sodium Potassium Chloride Carbon Dioxide Anion Gap BUN Creatinine Estim Creat Clear Calc Estimated GFR Glucose POC Capillary Glucose 92 106 H Calcium Total Bilirubin AST ALT Alkaline Phosphatase Total Protein Albumin Syphilis IgG/IgM Ab HIV 1&2 Ab/P24 Ag 4thGn Blood Type Antibody Screen OB - PN A/P Time Spent With Patient Time: Total time spent is greater than 50% in coordination of care (as documented) at patient's floor/unit and/or counseling patient:
--- NOTE | 2025-09-08 18:05 | PM.OBPNLAB ---
Pain Control Date/time seen: 09/08/25 18:05 I am covering for Dr. Sandoval, and have received check out. EFW noted. Glucose has been normal. She is comfortable with epidural. Pelvic Exam Dilation (cm): 10 station: 0 Contractions Contraction frequency: 3 Status status: Category ll Comments: Variables with early timing. Assessment and Plan Comments: Begin pushing.
--- NOTE | 2025-09-08 20:14 | P.PNOB_ITS ---
Pain Control Date/time seen: 09/08/25 20:14 Still comfortable with epidural. Pushing well. FHR 150 with good variability. Contractions every 3 min. However, after 2 hours of pushing, no significant descent of the presenting part was effected. I have offered her a primary delivery using the Maori/Frisian assembler dc field ring service. She understands risks of surgery to include risks of anesthesia, risks of pain, infection, bleeding, blood products, thromboembolic phenomena and damage to adjacent structures such as bowel, bladder, ureters, blood vessels and nerves. She understands all these risks and elects to proceed with surgery. Pelvic Exam Dilation (cm): 10 station: -1 Contractions Contraction frequency: 3 Status status: Category ll
--- NOTE | 2025-09-08 20:16 | WPDHPUPDATE1 ---
History and Physical Update Update Date/Time: 09/08/25 20:16 History and Physical has been reviewed, including an updated exam of the patient. There are NO changes in the patient's condition. Risks, benefits, and alternatives have been discussed and questions answered. Patient agrees to proceed with procedure.
[2025-09-08] MEDS: FAMOTIDINE 20 MG/2 ML VIAL IV PUSH (20:23)
[2025-09-08] MEDS: ONDANSETRON INJ 4 MG/2 ML VIAL IV PUSH (20:23)
[2025-09-08] MEDS: LACTATED RINGERS 1,000 ML 999 ML IV CONT (20:25)
[2025-09-08] MEDS: ACETAMINOPHEN 500 MG TABLET 1000 MG PO (20:28)
[2025-09-08] MEDS: ceFAZolin 2 GM in SODIUM CHLORIDE 0.9% IV 50 ML 100 ML IVPB (20:37)
[2025-09-08] MEDS: AZITHROMYCIN IV 500 MG in SODIUM CHLORIDE 0.9% IV 250 ML IVPB (20:47)
--- NOTE | 2025-09-08 21:41 | P.PCNOB_ITS ---
OB - Delivery Note Procedure Delivery date: 09/08/25 Pre-op diagnosis: Arrest of Decent and Diabetes Mellitus Post-op Diagnosis: Same Induction method: Per Misoprostol Protocol Delivery augmentation: Rupture of Membranes and Pitocin Delivery monitor: External FHT and External Uterine Prior to decision for section, ACOG/SM labor guidelines were considered and discussed with the patient and staff. Decision made to proceed with the section.: Yes Procedure Performed: Primary Surgeon: Abner Modi MD Anesthesia type: Epidural Description of Procedure/Findings: Findings: Uterus, tubes and ovaries unremarkable. Techniques: The patient was taken to the operating room where she was prepared and draped in the usual sterile fashion in dorsal supine position with a leftward tilt. She received cefazolin and azithromycin preoperatively. Epidural anesthesia was found to be adequate. A Pfannenstiel skin incision was made and carried through to the underlying layer of the fascia. The fascia was incised in the midline and the incision was extended laterally. The fascia was dissected free of the underlying rectus muscles. The rectus muscles were in the midline. The peritoneum was identified, tented up and entered sharply. The peritoneal incision was extended superiorly and inferiorly with good visualization of the bladder. The bladder blade was placed. The vesicouterine peritoneum was identified, tented up and entered sharply. The incision was extended laterally and the bladder flap was developed. The bladder blade was replaced. The uterus was then incised sharply in a transverse fashion along the lower uterine segment. The incision was extended laterally. The 's head was delivered atraumatically to the sterile field, followed by the body. The nose and mouth were bulb suctioned. After a delay, the cord was clamped and cut. The infant was handed off the field. Cord blood was collected. The placenta was removed manually and was passed off the field. The uterus was exteriorized and cleared of all clots and debris. The uterine incision was reapproximated using 0 Monocryl in a running, locked fashion. A second, imbricating layer of the same suture was run. Excellent hemostasis resulted as did excellent reapproximation of the normal anatomy. The uterus was returned the abdomen. The pelvis was irrigated copiously with warmed normal saline. Hemaderm was applied to the bladder flap. Rigorous hemostasis was assured. The fascial layer was reapproximated using 0 Vicryl in a running fashion. The skin was closed with a running, subcuticular stitch of 4 0 Vicryl. Dermaflex was applied externally. Sponge, lap, needle and instrument counts were correct. The patient was taken to the recovery room in stable condition. The went to the nursery in stable condition. I was present and scrubbed the entire procedure. Specimen: Yes (Cord blood, placenta) Estimated Blood Loss: 1,215 Drains: Yes (Gao) Packing: No Pathology: Yes (Placenta) Complications: None Condition: Stable Disposition: PACU [place] Baby Date of : 09/08/25 Time of : 20:56 Gestational Age by Date: 38 Infant gender: Male Weight (pounds): 10 Weight (ounces): 11 presentation: vertex Placenta delivery description: Manual Removal and Normal Configuration Cord Vessel Description: 3 Vessels and Delayed Cord Clamping score one minute: 8 score five minutes: 9
--- NOTE | 2025-09-08 21:44 | P.DS_ITS ---
DS: Admitting Diagnosis Discharge Date 09/11/25 Admitting Diagnosis IUP at 38 weeks Type 2 DM Suspected macrosomia DS: Discharge Diagnosis Discharge Diagnosis (1) delivery delivered: Code(s): O82 - Encounter for delivery without indication Status: Acute (2) Pregestational diabetes mellitus, modified White class B: Code(s): O24.319 - Unspecified pre-existing diabetes mellitus in , unspecified trimester Status: Acute (3) Macrosomia: Code(s): P08.0 - Exceptionally large baby Status: Acute OB - DS: Summary OB Procedures : NST OB Procedures Intrapartum: OB Procedures: : None Peripartum Data Procedures: Procedures Operation Date: 09/08/25 20:15 <No data on this case meets the specified criteria> Time Spent with Patient Time attestation: Total time spent providing and/or coordinating discharge services: DS: Data Data Completed and Pending Labs on day of discharge: Labs from last 24 hours 09/08/25 09/08/25 09/08/25 19:37 19:15 18:51 POC Capillary Glucose 105 58 L* 70 09/08/25 09/08/25 09/08/25 18:26 17:01 16:10 POC Capillary Glucose 61 L 87 112 H 09/08/25 09/08/25 09/08/25 14:54 13:55 12:48 POC Capillary Glucose 106 H 92 85 09/08/25 09/08/25 09/08/25 11:02 10:02 09:10 POC Capillary Glucose 116 H 139 H 146 H 09/08/25 09/08/25 09/08/25 08:09 07:06 01:08 POC Capillary Glucose 77 94 93 Discharge Plan Discharge Attending physician on discharge: Chance Sandoval Discharging Clinician: Abner Modi Patient Disposition: Home Activity: may shower, may drive after 2 weeks and pelvic rest Diet: diabetic Wound Care Instructions: incision open to air Discharge Instructions: Call or return if temperature above 100.4? F, increased abdominal pain, increased vaginal bleeding or any new problems. Patient Language: Bermudian Stand Alone Forms: General Discharge Information Follow-up/Referrals: Chance Sandoval MD [Physician, [employer] REDEVELOPMENT MANAGER] - Call for Appointment Discharge Medications: New ibuprofen 600 mg tablet 600 mg PO Q6H PRN (Reason: cramps) Qty: 30 0RF oxycodone-acetaminophen [Endocet] 5-325 mg tablet 1 - 2 tablet PO Q6H PRN (Reason: pain) Qty: 30 0RF ferrous sulfate 325 mg (65 mg iron) tablet 325 mg PO DAILY Qty: 30 0RF Continued DHA 200 mg capsule 200 mg PO DAILY Discontinued insulin glargine [Lantus Solostar U-100 Insulin] 100 unit/mL (3 mL) insulin pen 60 unit subcut QPM Patient Comments: 60 units at bedtime 18 units at breakfast insulin lispro 100 unit/mL insulin pen 4 unit SUBCUT DAILY Patient Comments: 4 units at breakfast 4 units at lunch 6 units at dinner Date of admission: 09/07/25 16:55 Primary Care Provider: Sendy,Kaia Admitting Provider: Chance Sandoval Attending physician on admission: Chance Sandoval Condition: Stable
--- NOTE | 2025-09-08 22:41 | S_PTH ---
PATIENT: Joana Wells LOC: [facility] U#:[id number] AGE/SX: 40/F ROOM: 286 RE09/07/[address]: Abner Modi MD : [id number] BED: 00 DIS: 09/11/2025 SPEC #: [id number] RECD: 09/09/25 07:42 STATUS: SALUD [place] #: [id number] MIKEL: 09/08/25 22:[address]: Abner Modi DEPT: [facility] Surgical RECD BY: Beverly Da Silva ENTERED: 09/09/25 07:42 SP TYPE: Surgical OTHR DR: Kaia Kaba, CARDIOLOGY TECHNOLOGIST Chance Sandoval MD Tissues: A - Placenta Procedures: Hematoxylin and Eosin Stain Gross and Microscopic Level 5
[2025-09-08] MEDS: OXYTOCIN 30 UNITS/NS 500 ML 30 UNITS/500 ML BAG 125 UNITS IV CONT (23:20)
[2025-09-09] VITALS (8 sets, daily range): BP systolic 92–100; BP diastolic 54–74; PULSE 71–84; RESP 14–18; TEMP 36.1–37.6; O2SAT 97–100
[2025-09-09] MEDS: ACETAMINOPHEN 500 MG TABLET 1000 MG PO ×4 (01:14→19:27)
[2025-09-09] MEDS: KETOROLAC 15 MG/ML VIAL (*BKC) IV PUSH ×3 (01:14→13:27)
--- NOTE | 2025-09-09 01:44 | OBPPTRN ---
Patient transferred to post room #286 via bed. Niece present. Oriented to unit, room, information board, rooming in, admission packet and security measures using stratus mat cleaning machine operator. Patient verbalizes understanding.
[2025-09-09] MEDS: DEXTROSE 5%/0.45% SOD CHL 1,000 ML 125 ML IV CONT (03:20)
[2025-09-09] MEDS: oxyCODONE HCL (*CRX) 5 MG TAB IR PO ×2 (05:42→23:47)
[2025-09-09 06:01] LABS: Hematocrit 28.7 % (37.0-47.0); Hemoglobin 9.6 g/dL (12.0-15.0); Immature Granulocyte Percent A 0.3 % (0-0.5); Lymphocytes Absolute Auto 1.59 K/mm3 (0.9-3.2); Mean Corpuscular HGB Conc 33.4 g/dl (32-36); Mean Corpuscular Hemoglobin 27.7 pg (26-34); Mean Corpuscular Volume 82.9 fl (80-100); Nucleated Red Blood Cells Absolute Auto 0.000 K/mm3 (0.0-0.012); Nucleated Red Blood Cells Perc 0.0 % (0.0-0.2); Platelet Count Result 157 k/mm3 (150-375); Red Blood Count 3.46 M/mm3 (4.2-5.4); White Blood Count 12.5 K/mm3 (4.5-10.0)
[2025-09-09] MEDS: MULTIVIT/MIN/PREN/FOL AC/IRON TABLET 1 TAB PO (07:29)
[2025-09-09] MEDS: DOCUSATE SODIUM 100 MG CAPSULE PO ×2 (07:29→17:05)
[2025-09-09] MEDS: SIMETHICONE 80 MG TAB.CHEW PO ×3 (07:29→17:05)
--- NOTE | 2025-09-09 10:00 | PM.OBPNVD ---
OB - PN: Subj Subjective Date/time seen: 09/09/25 10:00 Narrative: Pain OK. Tolerating diet. Has not been up much yet. OB - PN: Obj Data Labs 09/09/25 05:46 09/07/25 17:49 Labs: Laboratory Results - last 24 hr 09/08/25 09/08/25 09/08/25 10:02 11:02 12:48 WBC RBC Hgb Hct MCV MCH MCHC RDW Plt Count MPV Immature Gran % (Auto) Neut % (Auto) Lymph % (Auto) [place] % (Auto) Eos % (Auto) Baso % (Auto) Lymph # (Auto) [place] # (Auto) Eos # (Auto) Baso # (Auto) Abs Immat Gran (auto) Absolute Neuts (auto) Absolute Nucleated RBC Nucleated RBC % POC Capillary Glucose 139 H 116 H 85 09/08/25 09/08/25 09/08/25 13:55 14:54 16:10 WBC RBC Hgb Hct MCV MCH MCHC RDW Plt Count MPV Immature Gran % (Auto) Neut % (Auto) Lymph % (Auto) [place] % (Auto) Eos % (Auto) Baso % (Auto) Lymph # (Auto) [place] # (Auto) Eos # (Auto) Baso # (Auto) Abs Immat Gran (auto) Absolute Neuts (auto) Absolute Nucleated RBC Nucleated RBC % POC Capillary Glucose 92 106 H 112 H 09/08/25 09/08/25 09/08/25 17:01 18:26 18:51 WBC RBC Hgb Hct MCV MCH MCHC RDW Plt Count MPV Immature Gran % (Auto) Neut % (Auto) Lymph % (Auto) [place] % (Auto) Eos % (Auto) Baso % (Auto) Lymph # (Auto) [place] # (Auto) Eos # (Auto) Baso # (Auto) Abs Immat Gran (auto) Absolute Neuts (auto) Absolute Nucleated RBC Nucleated RBC % POC Capillary Glucose 87 61 L 70 09/08/25 09/08/25 09/08/25 19:15 19:37 22:17 WBC RBC Hgb Hct MCV MCH MCHC RDW Plt Count MPV Immature Gran % (Auto) Neut % (Auto) Lymph % (Auto) [place] % (Auto) Eos % (Auto) Baso % (Auto) Lymph # (Auto) [place] # (Auto) Eos # (Auto) Baso # (Auto) Abs Immat Gran (auto) Absolute Neuts (auto) Absolute Nucleated RBC Nucleated RBC % POC Capillary Glucose 58 L* 105 118 H 09/09/25 09/09/25 05:46 09:30 WBC 12.5 H RBC 3.46 L Hgb 9.6 L Hct 28.7 L MCV 82.9 MCH 27.7 MCHC 33.4 RDW 12.6 Plt Count 157 MPV 11.4 H Immature Gran % (Auto) 0.3 Neut % (Auto) 79.4 H Lymph % (Auto) 12.8 L [place] % (Auto) 7.1 Eos % (Auto) 0.1 Baso % (Auto) 0.3 Lymph # (Auto) 1.59 [place] # (Auto) 0.9 H Eos # (Auto) 0.0 Baso # (Auto) 0.0 Abs Immat Gran (auto) 0.04 H Absolute Neuts (auto) 9.9 H Absolute Nucleated RBC 0.000 Nucleated RBC % 0.0 POC Capillary Glucose 88 OB - PN A/P Plan day: 1 Comments: A: POD#1, doing well. P: Routine care. Will monitor blood glucose. Exam Narrative: AVSS I/O OK ABD soft, nontender, fundus firm. Incision c/d/i. EXT nontender
[2025-09-09] MEDS: LIDOCAINE 5% PATCH 1 PATCH TRANSDERM (11:26)
--- NOTE | 2025-09-09 12:50 | WPDANLDPN2 ---
Anes-Prog Note L&D Date/Time: 09/09/25 12:50 Comfortable throughout: section Neuraxial method: epidural Epidural/Spinal procedure site: clean & non-tender Neuro status: Neuro function grossly intact. Vital Signs: Last Vital Signs Temp 36.8 C 09/09/25 12:24 Pulse 74 09/09/25 12:24 Resp 16 09/09/25 12:24 BP 97/58 L 09/09/25 12:24 Pulse Ox 98 09/09/25 12:24 O2 Del Method Room Air 09/09/25 11:25 Pain score (VAS): 0 I/O: Intake & Output 09/08/25 09/09/25 09/09/25 23:59 07:59 15:59 Intake Total 2260 500 0 Output Total 2355 250 425 Balance -95 250 -425 Patient feedback: Patient satisfied with anesthetic care.
[2025-09-09] MEDS: IBUPROFEN 600 MG TABLET PO (19:26)
[2025-09-10] MEDS: IBUPROFEN 600 MG TABLET PO ×4 (01:30→20:30)
[2025-09-10] MEDS: ACETAMINOPHEN 500 MG TABLET 1000 MG PO ×4 (01:30→20:30)
[2025-09-10 07:35] VITALS: BP 98/63; PULSE 80; RESP 16; TEMP 36.6; O2SAT 99
[2025-09-10] MEDS: SIMETHICONE 80 MG TAB.CHEW PO ×3 (07:37→16:28)
[2025-09-10] MEDS: DOCUSATE SODIUM 100 MG CAPSULE PO ×2 (09:12→16:27)
[2025-09-10] MEDS: MULTIVIT/MIN/PREN/FOL AC/IRON TABLET 1 TAB PO (09:13)
--- NOTE | 2025-09-10 14:00 | P.PNOB_ITS ---
OB - PN: Subj Subjective Date/time seen: 09/10/25 14:00 Interval history: fht 130, cat 2, 8/90/-2. BS normal. Continue Pitocin. Narrative: Pain OK. Tolerating diet. OB - PN: Obj Data Labs 09/09/25 05:46 09/07/25 17:49 Labs: Laboratory Results - last 24 hr 09/09/25 09/09/25 09/10/25 17:53 21:35 09:14 POC Capillary Glucose 171 H 144 H 84 09/10/25 12:39 POC Capillary Glucose 136 H OB - PN A/P Plan day: 2 Comments: A: POD#2, doing well. P: Routine care. Exam 2 Narrative: AVSS I/O OK ABD soft, nontender, fundus firm. Incision c/d/i. EXT nontender
[2025-09-10 20:05] VITALS: BP 117/71; PULSE 78; RESP 18; TEMP 37.1; O2SAT 100
[2025-09-11] MEDS: IBUPROFEN 600 MG TABLET PO ×3 (02:20→14:21)
[2025-09-11] MEDS: ACETAMINOPHEN 500 MG TABLET 1000 MG PO ×3 (02:20→14:21)
[2025-09-11 08:00] VITALS: BP 103/68; PULSE 68; RESP 16; TEMP 36.6; O2SAT 98
[2025-09-11] MEDS: SIMETHICONE 80 MG TAB.CHEW PO (08:23)
[2025-09-11] MEDS: MULTIVIT/MIN/PREN/FOL AC/IRON TABLET 1 TAB PO (08:24)
[2025-09-11] MEDS: LIDOCAINE 5% PATCH 1 PATCH TRANSDERM (08:24)
[2025-09-11] MEDS: DOCUSATE SODIUM 100 MG CAPSULE PO (08:24)
--- NOTE | 2025-09-11 09:49 | P.PNOB_ITS ---
OB - PN: Subj Subjective Date/time seen: 09/11/25 09:49 Interval history: fht 130, cat 2, 8//-2. BS normal. Continue Pitocin. Narrative: Pain OK. Tolerating diet. Would like to go home. OB - PN: Obj Data Labs 09/09/25 05:46 09/07/25 17:49 Labs: Laboratory Results - last 24 hr 09/10/25 09/10/25 09/10/25 12:39 18:19 21:56 POC Capillary Glucose 136 H 119 H 166 H 09/11/25 08:16 POC Capillary Glucose 86 OB - PN A/P Plan day: 3 Comments: A: POD#3, doing well. Type 2 DM - no meds at present. P: Home to f/u 4 weeks. Exam 2 Narrative: AVSS ABD soft, nontender, fundus firm. Incision c/d/i. EXT nontender
--- NOTE | 2025-09-11 15:06 | PC.NURSE ---
[id number]. Reviewed discharge paperwork with mom and dad. [employer] #[id number] utilized via [employer]. Mom filled out the [place] depression screening form. All questions answered.
[2025-09-14 10:53] VITALS: BP 123/86; PULSE 78; RESP 18; TEMP 36.6; O2SAT 100
== END 2025-09-11 15:08 | disposition home or self-care (01) | DRG 540 ==
LOC: ANHLDR 09-08 21:47 → ANHOB2 09-11 11:56 → ANHLDR 09-13 11:31
PROVIDERS: Admitting Provider Obstetrics & Gynecology; PCP Registered Nurse; Visit Provider Obstetrics & Gynecology
PROC: 10D00Z1 Extraction of Products of Conception, Low, Open Approach (ICD-10-PCS; CPT 59514; principal; 2025-09-08 20:15)
DX: O24.12 Pre-existing type 2 diabetes mellitus, in childbirth (principal); Z3A.38 38 weeks gestation of pregnancy; Z37.0 Single live birth; O62.1 Secondary uterine inertia; O36.63X0 Maternal care for excessive fetal growth, third trimester, not applicable or unspecified
CPT/HCPCS: 36415; 80053; 82948; 85025; 86593; 86703; 86850; 86900; 86901; 88307; J0690; A9270; G0432; J0290; J0456; J1200; J1815; J1885; J2003; J2210; J2274; J2371; J2405; J2590; J2704; J2795; J3290; J7050; J7120; J7121